=== PATIENT | male | born 1935 | race Caucasian/White ===

== ENCOUNTER → 2022-04-16 | Outpatient (CLI) | payer MEDICARE, SELFPAY ==
--- NOTE | 2022-04-16 11:00 | ECHOD_ITS ---
Reason For Study: CHF Procedure This was a 2D Doppler, Color Flow transthoracic echocardiogram. The exam was of good technical quality. Exam performed in department. Left Ventricle Normal LV size. Apical false tendon noted. Left ventricular systolic function is normal. The estimated ejection fraction is 60 %. Unable to assess diastolic dysfunction. No regional wall motion abnormalities noted. Right Ventricle Normal RV size. Normal systolic function. Atria The left atrium is severely enlarged. The right atrium is moderately enlarged. No doppler evidence for ASD. Mitral Valve There is no mitral annular calcification. Normal mitral valve. The mitral valve chordae are thickened and/or calcified. Mild-Moderate (1-2+) mitral valve insufficiency. Tricuspid Valve Normal tricuspid valve. Moderately severe (3+) eccentric tricuspid valve insufficiency. Right ventricular systolic pressure estimated to be 78 mmHg. Severe pulmonary hypertension. Aortic Valve Trisinus/trileaflet aortic valve. Mild focal aortic valve calcification. Trivial aortic valve insufficiency. Pulmonic Valve The pulmonic valve is not well visualized. Mild (1+) pulmonic valve insufficiency. Great Vessels Normal sized aortic root. Pericardium/Pleural No pericardial effusion. MMode/2D Measurements & Calculations LVIDd: 5.3 cm IVSd: 1.0 cm LVOT diam: 2.2 cm LVIDs: 3.4 cm LVPWd: 1.0 cm LVOT area: 3.7 cm2 RVDd: 4.4 cm FS: 36.1 % Ao root diam: 3.2 cm LAV(MOD-bp): 107.2 ml LVAd ap4: 28.6 cm2 LAV(MOD-bp) Indexed: 61.3 ml/m2 LVLd ap4: 8.1 cm LAV(MOD-sp2): 87.6 ml EDV(MOD-sp4): 84.3 ml LAV(MOD-sp4): 108.7 ml EDV(sp4-el): 85.6 ml LVAs ap4: 16.5 cm2 LVLs ap4: 6.9 cm ESV(MOD-sp4): 34.1 ml ESV(sp4-el): 33.4 ml EF(MOD-sp4): 59.5 % EF(sp4-el): 60.9 % SV(MOD-sp4): 50.2 ml SV(sp4-el): 52.2 ml LA A4 area: 31.6 cm2 LA dimension(2D): 6.1 cm RA A4 area: 22.2 cm2 Time Measurements MV dec time: 0.32 sec Doppler Measurements & Calculations MV E max clark: 171.6 cm/sec MV V2 max: 179.6 cm/sec MV P1/2t max clark: 185.2 cm/sec MV max P.9 mmHg MV P1/2t: 96.1 msec MV V2 mean: 64.7 cm/sec MV dec slope: 564.3 cm/sec2 MV mean P.6 mmHg MVA(P1/2t): 2.3 cm2 MV V2 VTI: 55.8 cm MVA(VTI): 2.5 cm2 Ao V2 max: 241.6 cm/sec LV V1 max: 151.1 cm/sec SV(LVOT): 139.8 ml Ao max P.4 mmHg LV V1 max P.2 mmHg Ao V2 mean: 151.8 cm/sec LV V1 mean P.8 mmHg Ao mean P.5 mmHg LV V1 mean: 102.8 cm/sec Ao V2 VTI: 57.8 cm LV V1 VTI: 37.6 cm RUFUS(I,D): 2.4 cm2 RUFUS(V,D): 2.3 cm2 PA V2 max: 116.3 cm/sec TR max clark: 416.9 cm/sec TR max P.5 mmHg ECHO/Echo Complete Interpretation Summary Left ventricular systolic function is normal. The estimated ejection fraction is 60 %. Apical false tendon noted. The left atrium is severely enlarged. The right atrium is moderately enlarged. The mitral valve chordae are thickened and/or calcified. Mild-Moderate (1-2+) mitral valve insufficiency. Moderately severe (3+) eccentric tricuspid valve insufficiency. Mild focal aortic valve calcification. Trivial aortic valve insufficiency. Mild (1+) pulmonic valve insufficiency. Right ventricular systolic pressure estimated to be 78 mmHg. Severe pulmonary hypertension. Unable to assess diastolic dysfunction. Ordering Physician: CARMEN BURGOS Referring Physician: Atiloi Jimenez Performed By: Staci Sanchez, RDCS, RVT
== END | disposition home or self-care (01) ==
LOC: CVS 10:59
PROVIDERS: PCP Family Medicine; Referring Provider Internal Medicine Cardiovascular Disease; Visit Provider Internal Medicine Cardiovascular Disease
DX: I50.20 Unspecified systolic (congestive) heart failure (principal); I42.0 Dilated cardiomyopathy; I48.0 Paroxysmal atrial fibrillation; I34.0 Nonrheumatic mitral (valve) insufficiency
CPT/HCPCS: 93306

== ENCOUNTER → 2022-11-11 | Outpatient (CLI) | payer MEDICARE, SELFPAY ==
--- NOTE | 2022-11-11 15:45 | RAD_ITS ---
INDICATION: I27.20 EXAMINATION/TECHNIQUE: X-RAY - XR Chest 2 Views COMPARISON: None. FINDINGS: LINES/DEVICES: None. LUNGS: Small right pleural effusion. Compressive atelectasis in the right lung base. MEDIASTINUM AND CARDIOVASCULAR STRUCTURES: Cardiac silhouette not enlarged. Central airways and mediastinal contour are unremarkable. BONES AND SOFT TISSUES: Unremarkable. RAD/Chest PA and Lateral IMPRESSION: Small right pleural effusion. Electronically Signed: Marshall Vega MD at 2:42 EST ,
== END | disposition home or self-care (01) ==
PROVIDERS: PCP Internal Medicine Cardiovascular Disease; Referring Provider Family Medicine; Visit Provider Family Medicine
DX: I27.20 Pulmonary hypertension, unspecified (principal)
CPT/HCPCS: 71046

== ENCOUNTER 2023-02-10 15:01 | Inpatient (IN) | payer MEDICARE, SELFPAY ==
[2023-02-10] VITALS (8 sets, daily range): BP systolic 130–151; BP diastolic 49–120; PULSE 73–91; RESP 16–20; TEMP 36.2–37.7; O2SAT 92–98; BMI 30.4; BMI 29.2
--- NOTE | 2023-02-10 15:22 | EKG12_ITS ---
Test Reason : EDEMA Blood Pressure : / mmHG Vent. Rate : 090 BPM Atrial Rate : 080 BPM P-R Int : 000 ms QRS Dur : 084 ms QT Int : 344 ms P-R-T Axes : 000 106 036 degrees QTc Int : 420 ms Atrial fibrillation Rightward axis Borderline ECG Confirmed by CHUCK STOVER, DION ([id number]), editorial assistant RANDAL VARGAS ([id number]) on 02/12/2023 9:54:13 AM Referred By: Confirmed By:DION WOODS MD
--- NOTE | 2023-02-10 15:25 | RAD_ITS ---
STUDY: X-RAY CHEST REASON FOR EXAM: Male, 87 years old. Chest pain . Lower extremity swelling. TECHNIQUE: Single AP portable view of the chest. COMPARISON: None. FINDINGS: Small right pleural effusion. Increased markings at the right lung base suggestive of atelectasis. Mild degree of CHF. There is mild cardiac enlargement. Normal mediastinum and jonah. Normal visualized pulmonary arteries. There is atherosclerotic calcification of the aortic arch with tortuosity. Normal visualized thoracic spine. There is degenerative osteoarthritis of the bilateral shoulders. There is no demonstrated abnormality of the visualized soft tissue structures of the upper abdomen. RAD/Chest 1 View (Portable) IMPRESSION: Mild degree of CHF with small right pleural effusion and right basilar atelectasis. Cardiomegaly. Electronically Signed: David Wolff MD at 15:44 EDT ,
--- NOTE | 2023-02-10 15:28 | EDS_ITS ---
HPI History of Present Illness Chief Complaint: Edema Narrative Narrative: dyspnea on exertion and lower extremity edema which is worse over the last 4 days. Patient is on Lasix 40 mg p.o. daily. Patient denies chest pain. He has dyspnea on exertion and has some difficulty walking due to leg swelling and shortness of breath. He had to start using a walker. No fevers, chills, cough. He is anticoagulated on Pradaxa. He denies any black or bloody stools. He is not having orthopnea. He is not having chest pain. [facility] Medical History (Updated 02/10/23 @ 20:[address] Bel Dennis MD) Anemia Asthma Atrial fibrillation BPH (benign prostatic hyperplasia) CKD (chronic kidney disease) GERD (gastroesophageal reflux disease) History of alcohol abuse Hyperlipidemia Hypertension Obesity Home Medications albuterol sulfate 90 mcg/actuation aerosol inhaler 1 puff inhalation PRN PRN Shortness Of Breath 02/10/23 [History Last Taken Unknown] budesonide-formoterol HFA 160 mcg-4.5 mcg/actuation aerosol inhaler (Symbicort) 1 puff inhalation BID 02/10/23 [History Last Taken Unknown] dabigatran etexilate 150 mg capsule (Pradaxa) 150 mg PO BID 02/10/23 [History Last Taken Unknown] doxazosin 4 mg tablet 4 mg PO QHS 02/10/23 [History Last Taken Unknown] finasteride 5 mg tablet 5 mg PO DAILY 02/10/23 [History Last Taken Unknown] hydralazine 10 mg tablet 20 mg PO TID 02/10/23 [History Last Taken Unknown] omeprazole 20 mg capsule,delayed release 20 mg PO DAILY 02/10/23 [History Last Taken Unknown] simvastatin 20 mg tablet 20 mg PO QHS 02/10/23 [History Last Taken Unknown] zolpidem 10 mg tablet 10 mg PO QHS PRN PRN Sleep 02/10/23 [History Last Taken Unknown] Allergy/AdvReac Type Severity Reaction Status Date / Time No Known Allergies Allergy Verified 02/10/23 15:02 Family History (Updated 02/10/23 @ 20:[address] Bel Dennis MD) Mother CVA (cerebral vascular accident) Hypertension Father CVA (cerebral vascular accident) Hypertension Sister COPD (chronic obstructive pulmonary disease) Lung cancer Diabetes Surgical History (Updated 02/10/23 @ 20:[address] Bel Dennis MD) History of inguinal hernia repair Social History (Updated 02/10/23 @ 20:[address] Bel Dennis MD) household members: spouse Smoking Status: Never smoker alcohol intake: current alcohol intake frequency: a few times a month details: Notes currently 1-2 beers q 2 weeks, prior heavy at least 2-3 or more daily substance use type: does not use ROS ROS ED Constitutional Constitutional ED: Denies chills, fever(s) or sweats Eyes Eyes: Denies blurry vision or change in vision ENT ENT ED: Denies ear pain or sore throat Cardiovascular Cardiovascular: Denies chest pain, palpitations or racing heartbeat Respiratory/Chest Respiratory/Chest: Reports dyspnea and dyspnea on exertion; Denies cough or sputum Gastrointestinal Gastrointestinal: Denies abdominal pain, constipation, diarrhea, nausea or vomiting Genitourinary Genitourinary ED: Denies dysuria, hematuria or urinary frequency Musculoskeletal Musculoskeletal: Denies arthralgias, myalgias or neck pain Integumentary Denies abscess, Abrasions or rash Neurologic Neurologic: Denies headache(s), paresthesias or weakness Psychiatric Psychiatric: Denies anxiety, depression, suicidal ideation or suicidal thoughts Endocrine Endocrinology: Denies polydipsia or polyuria EXAM Physical Exam Const Vital Signs: 02/10/23 15:04 02/10/23 15:33 02/10/23 15:42 Temperature 97.8 F Temperature Source Temporal Pulse Rate 91 Respiratory Rate 18 Respiratory Pattern Normal Blood Pressure 140/120 H Blood Pressure Mean 126 Pulse Ox 96 95 Oxygen Delivery Method Room Air Room Air 02/10/23 17:02 02/10/23 19:00 02/10/23 19:33 Temperature 97.2 F L Temperature Source Temporal Pulse Rate 73 78 86 Respiratory Rate 16 20 H 16 Respiratory Pattern Blood Pressure 130/83 H 142/58 H 151/71 H Blood Pressure Mean 98 86 97 Pulse Ox 94 92 95 Oxygen Delivery Method Room Air Room Air Positive well nourished and obese General Appearance ED: NAD Nutritional Appearance: obese HEENT Reports moist mucous membranes Eyes PERRL and EOMs intact bilaterally Neck no lymphadenopathy Chest Wall inspection of chest normal and palpation of chest normal Resp normal respiratory effort and clear to auscultation bilaterally Auscultation: Negative for rales, rhonchi or wheezes Cardio regular rate and regular rhythm Extremity normal to inspection General Extremety ED: Yes edema; Negative for tenderness General Extremity: edema Neuro oriented x3 and CN's II-XII intact bilaterally Sensorium / Orientation: alert Motor Exam: strength 5/5 throughout Psych mental status grossly normal Skin no rashes or lesions noted and no wounds MDM MDM MDM Narrative Medical decision making narrative: 87-year-old male with history of CHF presenting with breath and worsening lower extremity edema. He is not having any chest pain but the differential does include ACS, CHF, pneumonia, anemia, dehydration, electrolyte abnormalities. Considered DVT/PE however the patient is anticoagulated on Pradaxa. This is unlikely. CBC to assess white blood cell count, hemoglobin, platelets, differential. BMP to assess renal function, glucose, anion gap, electrolytes. LFT to assess liver function. EKG, high-sensitivity troponin, BMP to assess for heart strain chest x-ray was also obtained. Vital signs stable patient afebrile. CBC shows a white blood cell count of 8. Hemoglobin 7.9, hematocrit 25.7. Platelet count 117. Creatinine today is 2.45 with a BUN of 62. Electrolytes appear normal. Glucose 160 without anion gap. Total bilirubin 1.20, direct bilirubin 0.57, AST, ALT, alkaline phosphatase are all normal. High-sensitivity troponin is 277 BNP is 390. I do not have any comparison labs to establish a true baseline. Discussed with GI given the patient has a Hemoc cult positive stool and anemia 7.9. Dr. Petty is amenable to endoscopy after medically cleared. He recommended ultrasound of the right upper quadrant which is obtained and shows cirrhotic changes. And gallstones without evidence of cholecystitis discussed with Dr. Quintero of cardiology given his CHF and type II NSTEMI most likely. He recommended echocardiogram in the morning. Patient was discussed with the hospitalist for admission. Impression: 1. Acute blood loss anemia 2. GI bleed likely upper 3. CHF exacerbation 4. Type II NSTEMI 5. Syncope 6. Cirrhosis 7. Cholelithiasis Lab Data Attestation: I reviewed the patient's lab results. Labs: Laboratory Results - last 24 hr 02/10/23 02/10/23 02/10/23 15:40 15:40 15:40 WBC 8.1 RBC 2.96 L Hgb 7.9 L Hct 25.7 L MCV 86.8 MCH 26.7 L MCHC 30.7 L RDW Std Deviation 50.9 H RDW Coeff of Shiloh 15.9 H Plt Count 117 L MPV 12.3 H Immature Gran % (Auto) 3.200 H Neut % (Auto) 88.8 H Lymph % (Auto) 4.3 L Will[place] % (Auto) 3.6 Eos % (Auto) 0.0 Baso % (Auto) 0.1 Absolute Neuts (auto) 7.2 Absolute Lymphs (auto) 0.35 L Nucleated RBC % 0 Differential Comment SCANNED Sodium 140 Potassium 3.8 Chloride 107 Carbon Dioxide 22.0 Anion Gap 11 BUN 62 H Creatinine 2.45 H Estim Creat Clear Calc 19.17 Est GFR (MDRD) Af Amer 32 L Est GFR (MDRD) Non-Af 27 L BUN/Creatinine Ratio 25.3 H Glucose 160 H Calcium 8.7 Phosphorus Magnesium Total Bilirubin 1.20 H Direct Bilirubin 0.57 H AST 37 ALT 26 Alkaline Phosphatase 94 Troponin I High Sens 277 H* B-Natriuretic Peptide 390.3 H Total Protein 6.8 Albumin 2.7 L Globulin 4.1 02/10/23 15:40 WBC RBC Hgb Hct MCV MCH MCHC RDW Std Deviation RDW Coeff of Shiloh Plt Count MPV Immature Gran % (Auto) Neut % (Auto) Lymph % (Auto) Will[place] % (Auto) Eos % (Auto) Baso % (Auto) Absolute Neuts (auto) Absolute Lymphs (auto) Nucleated RBC % Differential Comment Sodium Potassium Chloride Carbon Dioxide Anion Gap BUN Creatinine Estim Creat Clear Calc Est GFR (MDRD) Af Amer Est GFR (MDRD) Non-Af BUN/Creatinine Ratio Glucose Calcium Phosphorus 3.6 Magnesium 2.1 Total Bilirubin Direct Bilirubin AST ALT Alkaline Phosphatase Troponin I High Sens B-Natriuretic Peptide Total Protein Albumin Globulin Radiography Diagnostic Testing: Clinical Impression(s) from Imaging Studies Chest X-Ray 02/10/23 15:25 IMPRESSION: Mild degree of CHF with small right pleural effusion and right basilar atelectasis. Cardiomegaly. Electronically Signed: David Wolff MD at 15:44 EDT , Gallbladder Ultrasound 02/10/23 17:45 IMPRESSION: Mild ascites. Question of cirrhosis. Cholelithiasis. Electronically Signed: Tawanda Woods MD at 18:39 EDT , Discharge Plan Disposition Disposition: Acute Care Hospital [facility] Discharge Date/Time: 02/10/23 20:55
[2023-02-10 16:00] LABS: Absolute Lymphocyte Count 0.35 X10^3/uL (0.83-4.51); Absolute Neutrophil Count 7.2 X10^3/uL (2.0-7.7); Basophil# 0.01 X10^3/uL; Basophil% 0.1 % (0-1); Hematocrit 25.7 % (40-54); Hemoglobin 7.9 g/dL (13.0-16.5); Lymphocyte # 0.35 X10^3/ul (0.83-4.51); Lymphocyte % 4.3 % (19-41); Mean Corp Hgb Conc 30.7 g/dL (32-36); Mean Corpuscular Hgb 26.7 pg (27.0-32.0); Mean Corpuscular Volume 86.8 fL (80-94); Mean Platelet Vol. 12.3 fl (6.2-12.0); Monocyte# 0.29 X10^3/uL; Monocyte% 3.6 % (0-10); NRBC Flagged by Analyzer 0 % (0-5); Neutrophil # 7.15 X10^3/uL (2.7-7.7); Neutrophil % 88.8 % (47-70); POSITIVE DIFFERENTIAL YES; Platelet Count 117 K/mm3 (150-450); RBC Distribution Width CV 15.9 % (11.6-14.6); RBC Distribution Width SD 50.9 fl (35.1-43.9); Red Blood Count 2.96 M/mm3 (4.6-6.2); White Blood Count 8.1 K/mm3 (4.4-11.0)
[2023-02-10 16:05] LABS: Differential Indicated SCAN CRITERIA MET
--- NOTE | 2023-02-10 16:13 | CON.PCM.GI_ITS ---
HPI Consult Data Date of Consult: 02/10/23 HPI Narrative Reason for Consultation: Anemia and GI bleed HPI Narrative: VAMSI CASTILLO, is a 87 M who presents from home for worsening shortness of breath. He also complained of dyspnea on exertion and lower extremity edema which is worse over the last 4 days.? Patient is on Lasix 40 mg p.o. daily.? Patient denies chest pain.? He has dyspnea on exertion and has some difficulty walking due to leg swelling and shortness of breath.? He had to start using a walker.? No fevers, chills, cough.? He is anticoagulated on Pradaxa.? He denies any black or bloody stools.? He is not having orthopnea.? He is not having chest pain. He has a past medical history of PAF, HTN, HLD, Asthma, BPH, GERD, Diastolic CHF, Former EtOH abuse (decreased after retired, prior notes at least 2-3 beers daily, possibly more). I was asked to see him due to worsening anemia. I noted that his platelet count was low at 119 so with his anemia and thrombocytopenia I requested that he get an ultrasound of the right upper quadrant. Ultrasound of right upper quadrant showed mild ascites and a shrunken nodular liver consistent with cirrhosis. In the ED was also determined to have acute on chronic renal failure and elevated troponins. He is currently being seen by nephrology and cardiology. [facility] Medical History (Updated 02/11/23 @ 13:40 by Destini HERRERA, PA) Anemia Asthma Atrial fibrillation BPH (benign prostatic hyperplasia) CKD (chronic kidney disease) GERD (gastroesophageal reflux disease) History of alcohol abuse Hyperlipidemia Hypertension Obesity Home Medications albuterol sulfate 90 mcg/actuation aerosol inhaler 1 puff inhalation PRN PRN Shortness Of Breath 02/10/23 [History Last Taken Unknown] budesonide-formoterol HFA 160 mcg-4.5 mcg/actuation aerosol inhaler (Symbicort) 1 puff inhalation BID 02/10/23 [History Last Taken Unknown] dabigatran etexilate 150 mg capsule (Pradaxa) 150 mg PO BID 02/10/23 [History Last Taken Unknown] doxazosin 4 mg tablet 4 mg PO QHS 02/10/23 [History Last Taken Unknown] finasteride 5 mg tablet 5 mg PO DAILY 02/10/23 [History Last Taken Unknown] hydralazine 10 mg tablet 20 mg PO TID 02/10/23 [History Last Taken Unknown] omeprazole 20 mg capsule,delayed release 20 mg PO DAILY 02/10/23 [History Last Taken Unknown] simvastatin 20 mg tablet 20 mg PO QHS 02/10/23 [History Last Taken Unknown] zolpidem 10 mg tablet 10 mg PO QHS PRN PRN Sleep 02/10/23 [History Last Taken Unknown] Allergy/AdvReac Type Severity Reaction Status Date / Time No Known Allergies Allergy Verified 02/10/23 15:02 Family History (Updated 02/10/23 @ 20:[address] Bel Dennis MD) Mother CVA (cerebral vascular accident) Hypertension Father CVA (cerebral vascular accident) Hypertension Sister COPD (chronic obstructive pulmonary disease) Lung cancer Diabetes Surgical History (Updated 02/10/23 @ 20:[address] Bel Dennis MD) History of inguinal hernia repair Social History (Updated 02/10/23 @ 20:[address] Bel Dennis MD) household members: spouse Smoking Status: Never smoker alcohol intake: current alcohol intake frequency: a few times a month details: Notes currently 1-2 beers q 2 weeks, prior heavy at least 2-3 or more daily substance use type: does not use ROS ROS Narrative see HPI Physical Exam Const alert, oriented x3 and no apparent distress HEENT normocephalic, head/scalp atraumatic, hearing grossly normal bilaterally, external ears normal, external nose normal and moist oral mucous membranes Eyes PERRL, EOMs intact bilaterally, conjunctivae normal and no scleral icterus Neck no lymphadenopathy and supple Neck Narrative: JVD Resp Auscultation: diminished lung sounds bilateral Cardio S1 normal heart sound, S2 normal heart sound, no murmurs, no rub, no gallops, no clicks and no JVD Jugular Venous Distention: JVD Rate: bradycardia Rhythm: regular rhythm GI Inspection: abdominal distention Extremity Extremity Narrative: +3 lower extremity edema, extends up to abdomen with dependent edema Neuro oriented x3, CN's II-XII intact bilaterally, moves all extremities and no focal motor deficits Psych cooperative and affect normal Lab / Micro Data Result Diagrams: 02/11/23 04:02 02/11/23 04:02 Labs: Laboratory Results - last 24 hr 02/10/23 15:40: Differential Comment SCANNED 02/10/23 15:40: Sodium 140, Potassium 3.8, Chloride 107, Carbon Dioxide 22.0, Anion Gap 11, BUN 62 H, Creatinine 2.45 H, Estim Creat Clear Calc 19.17, Est GFR (MDRD) Af Amer 32 L, Est GFR (MDRD) Non-Af 27 L, BUN/Creatinine Ratio 25.3 H, Glucose 160 H, Calcium 8.7, Total Bilirubin 1.20 H, Direct Bilirubin 0.57 H, AST 37, ALT 26, Alkaline Phosphatase 94, Troponin I High Sens 277 H*, Total Protein 6.8, Albumin 2.7 L, Globulin 4.1 02/10/23 15:40: B-Natriuretic Peptide 390.3 H 02/10/23 15:40: Phosphorus 3.6, Magnesium 2.1 02/10/23 22:02: Urine Color Yellow, Urine Clarity Clear, Urine pH 7.0, Ur Specific Graham 1.005, Urine Protein 30 H, Urine Glucose (UA) Normal, Urine Ketones Negative, Urine Occult Blood 250 H, Urine Nitrite Negative, Urine Bilirubin Negative, Urine Urobilinogen Normal, Ur Leukocyte Esterase 500 H, Urine RBC 0-5 SEEN, Urine WBC 10-25 SEEN, Ur Squamous Epith Cells 0 SEEN, Urine Bacteria 3+, Urine Mucus 0 SEEN 02/10/23 22:02: Ur Random Sodium 89, Urine Creatinine 15.80 02/10/23 22:05: Hgb 7.8 L, Hct 24.8 L 02/10/23 22:05: Troponin I High Sens 311 H* 02/10/23 23:35: Hgb 7.3 L, Hct 23.2 L 02/10/23 23:35: Troponin I High Sens 307 H* 02/11/23 04:02: WBC 5.9, RBC 2.61 L, Hgb 7.1 L, Hct 22.3 L, MCV 85.4, MCH 27.2, MCHC 31.8 L, RDW Std Deviation 49.6 H, RDW Coeff of Shiloh 15.9 H, Plt Count 110 L, MPV 12.1 H, Neut % (Auto) Not Reportable, Absolute Neuts (auto) 5.2, Absolute Lymphs (auto) 0.36 L, Total Counted 100, Neutrophils % (Manual) 78 H, Band Neutrophils % 9 H, Lymphocytes % (Manual) 6 L, Monocytes % (Manual) 4, My elocytes % 3 H, Diff Path Review May foll, Platelet Estimate SLT DEC, Anisocytosis 1+ 02/11/23 04:02: Sodium 142, Potassium 3.5, Chloride 111 H, Carbon Dioxide 22.0, Anion Gap 9, BUN 61 H, Creatinine 2.20 H, Estim Creat Clear Calc 21.35, Est GFR (MDRD) Af Amer 37 L, Est GFR (MDRD) Non-Af 30 L, BUN/Creatinine Ratio 27.7 H, Glucose 105, Calcium 8.3 L, Total Bilirubin 1.20 H, AST 28, ALT 21, Alkaline Phosphatase 77, Total Protein 5.7 L, Albumin 2.2 L, Globulin 3.5, Albumin/Globulin Ratio 0.6 L, Triglycerides 53, Cholesterol 53, LDL Cholesterol 18, VLDL Cholesterol 11, HDL Cholesterol 24 L, TSH 0.69 02/11/23 04:02: Hemoglobin A1c < 3.8 L 02/11/23 04:02: Troponin I High Sens 304 H* 02/11/23 14:25: PT 22.2 H, INR 1.9 Micro: Microbiology 02/10/23 16:43 Stool Stool Occult Blood (CLEVE) - Final Occult Blood Positive Radiology Impression Gallbladder Ultrasound 02/10/23 17:45 IMPRESSION: Mild ascites. Question of cirrhosis. Cholelithiasis. Electronically Signed: Tawanda Woods MD at 18:39 EDT , Echocardiogram 02/10/23 21:03 Interpretation Summary The estimated ejection fraction is 55-60 %. Severe biatrial enlargement. Moderately severe +3 eccentric tricuspid valve insufficiency. Mild to moderate MR Severe pulm hypertension RV systolic pressure measuring 106 mmHg worsening from previous echocardiogram in April 16/2022 RV systolic pressure was 78 mmHg Ordering Physician: Bel Dennis Performed By: AB Venous Doppler Study 02/11/23 11:04 Interpretation Summary Deep veins of the bilateral lower extremities are patent and compressible segmentally. There is no evidence of bilateral lower extremity deep vein thrombosis. The bilateral great saphenous veins appear patent and compressible segmentally. Ordering Physician: Ryan Cowart Referring Physician: Atilio Jimenez Performed By: Alicia Aranda, YESSY, RVT Assessment & Plan Assessment/Plan (1) CHF exacerbation: (2) GI bleed: (3) NSTEMI, initial episode of care: PLAN: Plan The patient is an 87 y/o M w/ PMHx: PAF, HTN, HLD, COPD, BPH, GERD, Diastolic CHF who presents to the [facility] ED on 02/10/23 with history of increasing dyspnea, worse with exertion with lower extremity increased edema discovered to have anemia, thrombocytopenia and imaging consistent with cirrhosis. Cirrhosis- Differential diagnosis would be alcoholic cirrhosis versus Jaramillo cirrhosis. We will perform biochemical work-up and we also will screen him for varices to see if that is the etiology why he has a GI blood loss anemia. If her upper scope is negative then he would likely need a colonoscopy for further evaluation and possible capsule endoscopy. He is already on medical therapy for CHF which also incorporates prophylaxis for varices. Recommend ceftriaxone 1 g IV daily, Protonix drip and octreotide drip. Anemia - Admission hemoglobin 7.9, MCV 86.8 with no clear prior baseline even in clinic sink system. To be cautious we will temporally hold Pradaxa home regimen, obtain serial H+H, obtain T+S w/ cross for PRBC administration if appropriate, maintain on IV PPI, will request gastroenterology involvement, clears until midnight with n.p.o. status following. Deferring any IV fluids given #1. Given patient gallbladder ultrasound with noted mild ascites with questionable cirrhotic disease we will place also on IV Rocephin to be cautious. Thrombocytopenia, unclear if acute or chronic: Admission platelet 117, given anemia as well temporally holding anticoagulation pending further work-up as noted, will trend CBC Charges/Coding Visit Charges Inpatient E&M: 78818 Init Hosp L3
[2023-02-10 16:28] LABS: BNP,B-Type NATRIURETIC PEPTIDE 390.3 pg/mL (0-100)
[2023-02-10 16:31] LABS: AST(SGOT) 37 U/L (15-37); Alanine Aminotransfer ALT/SGPT 26 U/L (16-61); Albumin, Serum 2.7 g/dL (3.2-5.0); Alkaline Phosphatase 94 U/L (45-117); Anion Gap 11 (5-15); BUN 62 mg/dL (7-18); BUN/Creat Ratio 25.3 RATIO (10-20); Bilirubin, Direct 0.57 mg/dL (0.00-0.30); Calcium,Total 8.7 mg/dL (8.5-10.1); Chloride 107 mmol/L (98-107); Creatinine, Serum 2.45 mg/dL (0.70-1.30); EST Glomerular Filtration Rate 27 mL/min (>60); Est Glom Filt Rate - Afr Amer 32 mL/min (>60); Estimated Creatinine Clearance 19.17 ml/min; Globulin 4.1 g/dL (2.2-4.2); Glucose 160 mg/dL (74-106); Potassium 3.8 mmol/L (3.5-5.1); Protein, Total 6.8 g/dL (6.4-8.2); Sodium Level 140 mmol/L (136-145); Troponin-I HS 277 pg/mL (3.0-78.0)
[2023-02-10 16:35] LABS: Differential Comment SCANNED
--- NOTE | 2023-02-10 17:45 | US_ITS ---
STUDY: ABDOMINAL ULTRASOUND - RIGHT UPPER QUADRANT REASON FOR VISIT: Male, 87 years old ruq pain TECHNIQUE: Ultrasound evaluation of the right upper quadrant was performed with real-time and static alegria-scale imaging. TECHNICAL QUALITY: Limited. Examination limited due to the patient?s condition. COMPARISON: None. FINDINGS: Liver: The liver measures 16.6 cm. There is a nodular surface pattern suspicious for cirrhosis. There is normal echogenicity of the liver. The bile ducts are within normal limits. There is hepatic color flow. Several liver calcifications are seen. These are most consistent with granulomas. No liver mass. Gallbladder: Normal distended gallbladder. The gallbladder wall measures 2 mm. There is a negative sonographic Ramirez''s sign. There is pericholecystic fluid. There are multiple echogenic structures within the gallbladder, consistent with multiple gallstones. Common Bile Duct (C.B.D.): The common bile duct measures 4 mm. Pancreas: Normal size of the head, body of the pancreas. Tail of the pancreas is suboptimally seen. There is normal echogenicity of the pancreas. There is no demonstrated pancreatic mass or cyst. Right Kidney: Normal size of the right kidney. The right kidney measures 10.4 cm. Normal renal cortex. The right cortex measures 1.4 cm. There is no demonstrated renal mass or cyst. There is no right hydronephrosis. Mild ascites is seen. US/Gallbladder IMPRESSION: Mild ascites. Question of cirrhosis. Cholelithiasis. Electronically Signed: Tawanda Woods MD at 18:39 EDT ,
--- NOTE | 2023-02-10 19:05 | HP.PCM.HOS_ITS ---
HPI - General General Date of Admission: 02/10/23 Date of Service: 02/10/23 Chief Complaint: Dyspnea, worse with exertion, LE edema increased. HPI Narrative The patient is an 87 y/o M w/ PMHx: PAF, HTN, HLD, Asthma, BPH, GERD, Diastolic CHF, Former EtOH abuse (decreased after retired, prior notes at least 2-3 beers daily, possibly more) who presents to the [facility] ED on 02/10/23 with history of increasing dyspnea, worse with exertion with lower extremity increased edema worsening over the last 4 days requiring him to even start using a walker or even just ambulate with no associated chest discomfort but not improving prompting eventual ED evaluation. Patient denies any recent fever, chills or cough. Patient of note denies any bloody or black stools. He does report that he commonly has increased swelling to both lower extremities and normally more issues with the left than the right however he notes that his left recently improved but he still has ongoing worsened right lower extremity swelling but denies any marked pain. Right lower extremity is mildly warm to touch but he denies any recent wounds to that extremity. Work-up in the ED included T97.8, heart rate 91, BP initially 140/120 with most recent repeat 142/28, respiratory ranging 8 to most recently 20, oxygenation initially 96% on room air with most recent 92% on room air, CBC with WC 8.1, hemoglobin 7.9, MCV 86.8, platelet 117 with increased immature granulocytes and lymphopenia, CMP with BUN/creatinine 62/2.45, glucose 160, T. bili 1.20, D bili 0.57 otherwise not marked appearing, troponin 277, BNP 390.3, chest x-ray with mild degree of CHF with a small right pleural effusion and right basilar atelectasis as well as cardiomegaly, gallbladder ultrasound with mild ascites, questionable cirrhotic change, cholelithiasis evident, positive stool guaiac, EKG SR rate 61 without acute evidence of ischemia. In the ED patient administered Lasix 40 mg IV x1, Protonix 40 mg IV x1. ED discussed case with GI and requested PPI IV BID and planned endoscopy. ED also consulted Dr. Santos, Cardiology. [facility] Medical History (Updated 02/10/23 @ 20:[address] Bel Dennis MD) Anemia Asthma Atrial fibrillation BPH (benign prostatic hyperplasia) CKD (chronic kidney disease) GERD (gastroesophageal reflux disease) History of alcohol abuse Hyperlipidemia Hypertension Obesity Home Medications albuterol sulfate 90 mcg/actuation aerosol inhaler 1 puff inhalation PRN PRN Shortness Of Breath 02/10/23 [History Last Taken Unknown] budesonide-formoterol HFA 160 mcg-4.5 mcg/actuation aerosol inhaler (Symbicort) 1 puff inhalation BID 02/10/23 [History Last Taken Unknown] dabigatran etexilate 150 mg capsule (Pradaxa) 150 mg PO BID 02/10/23 [History Last Taken Unknown] doxazosin 4 mg tablet 4 mg PO QHS 02/10/23 [History Last Taken Unknown] finasteride 5 mg tablet 5 mg PO DAILY 02/10/23 [History Last Taken Unknown] hydralazine 10 mg tablet 20 mg PO TID 02/10/23 [History Last Taken Unknown] omeprazole 20 mg capsule,delayed release 20 mg PO DAILY 02/10/23 [History Last Taken Unknown] simvastatin 20 mg tablet 20 mg PO QHS 02/10/23 [History Last Taken Unknown] zolpidem 10 mg tablet 10 mg PO QHS PRN PRN Sleep 02/10/23 [History Last Taken Unknown] Allergy/AdvReac Type Severity Reaction Status Date / Time No Known Allergies Allergy Verified 02/10/23 15:02 Family History (Updated 02/10/23 @ 20:[address] Bel Dennis MD) Mother CVA (cerebral vascular accident) Hypertension Father CVA (cerebral vascular accident) Hypertension Sister COPD (chronic obstructive pulmonary disease) Lung cancer Diabetes Surgical History (Updated 02/10/23 @ 20:[address] Bel Dennis MD) History of inguinal hernia repair Social History (Updated 02/10/23 @ 20:[address] Bel Dennis MD) household members: spouse Smoking Status: Never smoker alcohol intake: current alcohol intake frequency: a few times a month details: Notes currently 1-2 beers q 2 weeks, prior heavy at least 2-3 or more daily substance use type: does not use ROS ROS Narrative Admission Review of Systems: CONSTITUTIONAL: No weight loss, fever, chills, + weakness or fatigue. HEENT: Eyes: No visual loss, blurred vision, double vision or yellow sclerae. Ears, Nose, Throat: No hearing loss, sneezing, congestion, runny nose or sore throat. SKIN: No rash or itching, lesions, wounds. CARDIOVASCULAR: + Edema, no chest pain, chest pressure or chest discomfort, palpitations, orthopnea, syncopal events. RESPIRATORY: + shortness of breath, occasional cough without marked productive sputum. No wheezing, hemoptysis. GASTROINTESTINAL: No anorexia, nausea, vomiting or diarrhea, abdominal pain, melena, BRBPR. GENITOURINARY: No dysuria, frequency, urgency or retention. NEUROLOGICAL: No headache, dizziness, syncope, paralysis, ataxia, numbness or tingling in the extremities, focal weakness, change in bowel or bladder control, seizure. MUSCULOSKELETAL: + muscle, back pain, joint pain or stiffness. HEMATOLOGIC: + anemia, bleeding or bruising. LYMPHATICS: No enlarged nodes. No history of splenectomy. PSYCHIATRIC: + history of depression or anxiety. ENDOCRINOLOGIC: No reports of sweating, cold or heat intolerance. No polyuria or polydipsia. ALLERGIES: + history of asthma. Vital Signs Vital Signs Vital Signs: 02/10/23 15:04 02/10/23 15:33 02/10/23 15:42 Temperature 97.8 F Temperature Source Temporal Pulse Rate 91 Respiratory Rate 18 Respiratory Pattern Normal Blood Pressure 140/120 H Blood Pressure Mean 126 Pulse Ox 96 95 Oxygen Delivery Method Room Air Room Air 02/10/23 17:02 02/10/23 19:00 Temperature Temperature Source Pulse Rate 73 78 Respiratory Rate 16 20 H Respiratory Pattern Blood Pressure 130/83 H 142/58 H Blood Pressure Mean 98 86 Pulse Ox 94 92 Oxygen Delivery Method Room Air Weight Weight: 188 lb 11.451 oz Body Mass Index (BMI) 30.4 Physical Exam Narrative Physical Examination: General: Awake, alert, oriented x 3 and cooperative, hard of hearing, seated upright in the ED bed, fatigued otherwise no acute distress. Skin: Normal color, normal turgor, no icterus, no cyanosis except for occasional staged ecchymoses, bilateral lower extremity venous stasis skin changes, right greater than left, no specific marked severe erythema or streaking on the right leg but right lower extremity is more warm to touch and more edematous. HEENT: AT/NC, EOMI, PERRLA, MMM, no carotid bruits, + JVD noted. Lungs: Diminished, greater bases, appropriate effort currently, mild rales at the bases, no ronchi or wheezing. Heart: Currently regular rate and rhythm; no gallop, rub audible, + SM. Abdomen: Soft, obese, NTTP, ND, mildly hyperactive BS,+ HM. Extremities: No cyanosis, no clubbing, see skin, right greater than left peripheral pitting edema. Neurological: Patient awake, alert, oriented as noted, hard of hearing, cognitive function intact but is complicated by hearing deficits; pupils equally reactive to light and accommodation, cranial nerves otherwise grossly normal, moving all 4 extremities, no focal deficits, strength moderately to severely global decrease secondary to acute complaints Psychiatric: Affect appears fatigued, no acute evidence of depressive or anxiety feelings. Results Lab / Micro Data Result Diagrams: 02/10/23 15:40 02/10/23 15:40 Labs: Laboratory Results - last 24 hr 02/10/23 15:40: WBC 8.1, RBC 2.96 L, Hgb 7.9 L, Hct 25.7 L, MCV 86.8, MCH 26.7 L , MCHC 30.7 L, RDW Std Deviation 50.9 H, RDW Coeff of [place]il[place] 15.9 H, Plt Count 117 L, MPV 12.3 H, Immature Gran % (Auto) 3.200 H, Neut % (Auto) 88.8 H, Lymph % (Auto) 4.3 L, Granite % (Auto) 3.6, Eos % (Auto) 0.0, Baso % (Auto) 0.1, Absolute Neuts (auto) 7.2, Absolute Lymphs (auto) 0.35 L, Nucleated RBC % 0, Differential Comment SCANNED 02/10/23 15:40: Sodium 140, Potassium 3.8, Chloride 107, Carbon Dioxide 22.0, Anion Gap 11, BUN 62 H, Creatinine 2.45 H, Estim Creat Clear Calc 19.17, Est GFR (MDRD) Af Amer 32 L, Est GFR (MDRD) Non-Af 27 L, BUN/Creatinine Ratio 25.3 H, Glucose 160 H, Calcium 8.7, Total Bilirubin 1.20 H, Direct Bilirubin 0.57 H, AST 37, ALT 26, Alkaline Phosphatase 94, Troponin I High Sens 277 H*, Total Protein 6.8, Albumin 2.7 L, Globulin 4.1 02/10/23 15:40: B-Natriuretic Peptide 390.3 H Micro: Microbiology 02/10/23 16:43 Stool Stool Occult Blood (CLEVE) - Final Occult Blood Positive Radiology Impression Chest X-Ray 02/10/23 15:25 IMPRESSION: Mild degree of CHF with small right pleural effusion and right basilar atelectasis. Cardiomegaly. Electronically Signed: David Wolff MD at 15:44 EDT , Gallbladder Ultrasound 02/10/23 17:45 IMPRESSION: Mild ascites. Question of cirrhosis. Cholelithiasis. Electronically Signed: Tawanda Woods MD at 18:39 EDT , Assessment & Plan Assessment/Plan (1) CHF exacerbation: (2) GI bleed: (3) NSTEMI, initial episode of care: PLAN: Plan The patient is an 87 y/o M w/ PMHx: PAF, HTN, HLD, COPD, BPH, GERD, Diastolic CHF who presents to the [facility] ED on 02/10/23 with history of increasing dyspnea, worse with exertion with lower extremity increased edema worsening over the last 4 days requiring him to even start using a walker or even just ambulate with no associated chest discomfort but not improving prompting eventual ED evaluation. Patient denies any recent fever, chills or cough. Patient of note denies any bloody or black stools. #1. Acute Decompensated Presumed Diastolic CHF with elevated cardiac enzymes as noted #3: Patient administered IV lasix in the ED, will admit to PCU, maintain on cardiac telemetry, obtain cardiac enzyme series, obtain serial EKGs, continue IV lasix diuresis, monitor I/Os, obtain TSH and magnesium level. Most recent ECHO noted 04/16/2022 with normal LV systolic function, EF 60%, LA severely enlarged, RA moderately enlarged, mild to moderate MVI, moderately severe TVI, trivial NILSON, mild PVI, RVSP 78 mmHg with evidence severe pulmonary hypertension, inability at that time to assess diastolic dysfunction thus will repeat. Given GI bleed presentation defer ASA/anticoagulation, also not on BB with HR 60 upon presentation and underlying pulmonary disease and not on ACEI/ARB with possibly RODRÍGUEZ. Continue statin. #2. Anemia, Suspected Acute given + Stool Guiac/GI bleed; however, unclear acute on chronic component, complicated by chronic anticoagulant therapy and Possibly underlying Cirrhotic disease w/ Prior EtOH Abuse history: Admission hemoglobin 7.9, MCV 86.8 with no clear prior baseline even in clinic sink system. To be cautious we will temporally hold Pradaxa home regimen, obtain serial H+H, obtain T+S w/ cross for PRBC administration if appropriate, maintain on IV PPI, will request gastroenterology involvement, clears until midnight with n.p.o. status following. Deferring any IV fluids given #1. Given patient gallbladder ultrasound with noted mild ascites with questionable cirrhotic disease we will place also on IV Rocephin to be cautious. #3. Acute NSTEMI, suspected type II demand given #1, #2: EKG in ED w/ SR without acute evidence of ischemia, chest x-ray with mild degree of CHF with a small right pleural effusion and right basilar atelectasis as well as cardiomegaly, Trop elevated 277. Will maintain on a monitored bed, continue serial cardiac enzymes and EKGs. Obtain magnesium level upon admission. Patient is chronically anticoagulated with Pradaxa however given concern for anemia possibly being acute with possible GI bleed holding this agent and will defer initiation of heparin drip. Echocardiogram requested. Continue statin therapy with FLP in AM. Patient of note is not on beta-jodie nor CHANTEL inhibitor/ARB but given renal function will defer this at this time regardless and unclear pulmonary history extent. Cardiology consulted. #4. Suspected RODRÍGUEZ although unclear if underlying CKD unclear stage or subtype: Admission BUN/creatinine 62/2.45, some concern for possible GI bleed component as well as volume overload, deferring any IV fluids, IV diuresis as noted, pending evaluation of GI bleed, will continue patient hypertensive regimen with adjustments as noted but closely monitor BP to avoid hypoperfusion, will obtain renal ultrasound, urinalysis, FeNa and pending reevaluation in a.m. consider nephrology involvement if appropriate. #5. Hyperglycemia: Admission glucose 160, no prior diabetic history reported, will obtain hemoglobin A1c and if appropriate obtain nutrition consultation for education and teaching, ADA diet once clinically appropriate and Accu-Cheks with insulin sliding scale. #6. Thrombocytopenia, unclear if acute or chronic: Admission platelet 117, given anemia as well temporally holding anticoagulation pending further work-up as noted, will trend CBC #7. Chronic Asthma: Will maintain on oxygen with wean as tolerated to room air, will temporally hold home inhaler in the interim transition to ATC budesonide therapy, PRN albuterol, HOB, IS parameters. #8. PAF: Not on rate or rhythm agent per review of current list but clarifying, on chronic Pradaxa regimen, temporarily holding given anemia noted and unclear baseline. #9. Hypertension: Continue home regimen including hydralazine, IV Lasix as noted, not on beta-jodie or CHANTEL inhibitor however clarifying list, PRN hydr alazine. #10. Hyperlipidemia: Continue home statin regimen. AM FLP. #11. BPH: We will continue patient home finasteride and doxazosin home regimen. #12. GERD: We will maintain on IV PPI pending further work-up given anemia and unclear baseline hemoglobin level. #13. DVT prophylaxis: SCDs, holding Pradaxa given #2 is noted. #14. CODE status: Patient HCPOA and living will is not in place however he notes his would be his decision maker if this was necessary. Discussed CODE status at length including difference between FULL code, DNR-CCA and DNR-CC status. Following discussions about the differences in these status, requested Full Code status. Advanced Care Planning Face to Face Time: 16 minutes. Admission Evaluation Time spent evaluating chart, patient history, patient evaluation, care planning and discussion with specialists: 75 minutes. Charges/Coding Visit Charges Inpatient E&M: 71988 Init Hosp L3 Procedures Hospitalists Procedures: 63717 Advncd Care Plan 30 Min
[2023-02-10 20:15] LABS: Magnesium 2.1 mg/dL (1.6-2.6); Phosphorus 3.6 mg/dL (2.5-4.9)
[2023-02-10] MEDS: Furosemide 40 MG/4 ML Vial IV (20:18)
--- NOTE | 2023-02-10 21:03 | ECHOD_ITS ---
Procedure This was a 2D Doppler, Color Flow transthoracic echocardiogram. Patient scanned supine. Exam performed portable in patient room. Left Ventricle Normal left ventricle. The estimated ejection fraction is 55-60 %. Right Ventricle Moderately dilated right ventricle. Mildly decreased right ventricular systolic function. Atria The left atrium is severely enlarged. The right atrium is severely enlarged. Mitral Valve The mitral valve chordae are thickened and/or calcified. Mild-Moderate (1-2+) eccentric mitral valve insufficiency. Tricuspid Valve Normal tricuspid valve. Moderately severe (3+) tricuspid valve insufficiency. Aortic Valve Normal aortic valve. Trivial aortic valve insufficiency. Pulmonic Valve The pulmonic valve is not well visualized. Pericardium/Pleural No pericardial effusion. MMode/2D Measurements & Calculations LVIDd: 4.7 cm IVSd: 1.3 cm LVOT diam: 2.0 cm LVIDs: 3.5 cm LVPWd: 1.1 cm LVOT area: 3.0 cm2 FS: 26.0 % LAV(MOD-bp): 119.2 ml LA A4 area: 32.1 cm2 LA dimension(2D): 4.8 cm LAV(MOD-bp) Indexed: 62.2 ml/m2 LAV(MOD-sp2): 98.7 ml LAV(MOD-sp4): 117.5 ml RA A4 area: 26.0 cm2 Time Measurements MV dec time: 0.41 sec Doppler Measurements & Calculations MV E max dudley: 159.0 cm/sec Lat Peak E' Dudley: 9.9 cm/sec Med Peak E' Dudley: 6.6 cm/sec MV A max dudley: 28.0 cm/sec E/E' lat: 16.0 E/E' med: 24.2 MV E/A: 5.7 MV V2 max: 175.5 cm/sec MV dec slope: 390.2 cm/sec2 Ao V2 max: 234.1 cm/sec MV max P.3 mmHg Ao max P.0 mmHg MV V2 mean: 56.0 cm/sec RUFUS(V,D): 2.0 cm2 MV mean P.0 mmHg MV V2 VTI: 53.5 cm LV V1 max: 156.9 cm/sec PA V2 max: 132.1 cm/sec TR max dudley: 516.2 cm/sec LV V1 max P.9 mmHg PA V2 mean: 92.2 cm/sec TR max P.6 mmHg ECHO/Echo Complete Interpretation Summary The estimated ejection fraction is 55-60 %. Severe biatrial enlargement. Moderately severe +3 eccentric tricuspid valve insufficiency. Mild to moderate MR Severe pulm hypertension RV systolic pressure measuring 106 mmHg worsening from previous echocardiogram in April 16/2022 RV systolic pressure was 78 mmHg Ordering Physician: Bel Dennis Performed By:
--- NOTE | 2023-02-10 21:20 | EKG12_ITS ---
Test Reason : AM EKG Blood Pressure : / mmHG Vent. Rate : 073 BPM Atrial Rate : 058 BPM P-R Int : 000 ms QRS Dur : 092 ms QT Int : 394 ms P-R-T Axes : 000 097 133 degrees QTc Int : 434 ms Atrial fibrillation Rightward axis Low voltage QRS Borderline ECG When compared with ECG of 10-FEB-2023 21:37, MANUAL COMPARISON REQUIRED, DATA IS UNCONFIRMED Confirmed by CHUCK STOVER, DION ([id number]), managing editor RANDAL VARGAS ([id number]) on 02/12/2023 9:57:38 AM Referred By: Confirmed By:DION WOODS MD
[2023-02-10 22:43] LABS: Hematocrit 24.8 % (40-54); Hemoglobin 7.8 g/dL (13.0-16.5)
[2023-02-10 23:11] LABS: Troponin-I HS 311 pg/mL (3.0-78.0)
[2023-02-10] MEDS: 0.9% Saline Lock 10 ML Syringe IV (23:15)
[2023-02-10] MEDS: Ceftriaxone 1 GM/50 ML BAG IV (23:17)
[2023-02-10] MEDS: hydrALAZINE 10 MG Tablet 20 MG PO (23:19)
[2023-02-10] MEDS: Atorvastatin Calcium 10 MG Tablet PO (23:20)
[2023-02-10] MEDS: Doxazosin 4 MG Tablet PO (23:20)
[2023-02-10 23:25] LABS: Mucous, Urine 0 SEEN /hpf (<or=2+); Squamous Epithelial Cells - UA 0 SEEN /hpf (0-5)
[2023-02-10 23:27] LABS: Color, Urine Yellow (Yellow); Glucose, Dipstick Normal (Normal); Ketone-Dipstick Negative (Negative); Leukocyte Esterase-Dipstick 500 /ul (Negative); Nitrite-Dipstick Negative (Negative); Occult Blood-Urine 250 /ul (Negative); Protein-Dipstick 30 mg/dl (Negative); Specific Gravity, Urine 1.005 (1.002-1.030); Urine Bilirubin Dipstick Negative (Negative); Urine Clarity Clear (Clear); Urine Urobilinogen Normal (Normal)
[2023-02-10 23:37] LABS: Bacteria 3+ /hpf (None Seen); Red Blood Cells-Urine 0-5 SEEN /hpf (0-5); White Blood Cells 10-25 SEEN /hpf (0-5)
[2023-02-10 23:42] LABS: Urine Sodium 89 mmol/L (Not Establ.)
[2023-02-10 23:44] LABS: Hematocrit 23.2 % (40-54); Hemoglobin 7.3 g/dL (13.0-16.5)
[2023-02-11] VITALS (17 sets, daily range): BP systolic 114–128; BP diastolic 41–79; PULSE 50–95; RESP 16–18; TEMP 35.9–37.5; O2SAT 92–99; BMI 29.2
--- NOTE | 2023-02-11 | GASB_PTH ---
PATIENT: VAMSI CASTILLO LOC: [facility] U#:[id number] AGE/SX: 87/M ROOM: [facility] RE02/10/[address]: Dr. Ivelisse Cantu DO : 1935 BED: 1 DIS: 02/17/2023 SPEC #: [id number] RECD: 02/12/23 11:49 STATUS: RUSS REMoreno #: [id number] AMOL: 02/11/23 00:[address]: Vaibhav Petty DEPT: SURGICAL PATHOLOGY RECD BY: Dejuan Sorto ENTERED: 02/12/23 11:49 SP TYPE: Gastric Bx OTHR DR: MD Dr. Atilio Abad DO Dr. Farouk Belal, MD Dr. Olga Voroshilova, MD Dr. Prakash Chand, MD Tissues: Gastric mucous membrane Procedures: Surgery Specimen Level IV Comments: @ Ordering doctor for SUIV edited from to @ by EMILY at 02/12/23 1526 @ Submitting doctor edited from to @ by RGOOD at 02/12/23 1526 HEADER OPERATION: EGD (MAC) with biopsies PRE-OP DIAGNOSIS: Anemia TISSUE SUBMITTED: Gastric body biopsies MICROSCOPIC DIAGNOSIS Gastric body, biopsy: Changes of fundic gland polyp. Chronic gastritis. See comment. AM:peter 02/13/2023 COMMENT The results of immunohistochemistry for Helicobacter pylori will be reported separately ([id number]). MICROSCOPIC DESCRIPTION Slides are reviewed. GROSS DESCRIPTION Received in fixative is one container labeled with the patient's name and designated gastric body biopsy. The specimen consists of multiple irregular fragments of light cordoba soft tissue that in aggregate measure 1.0 x 0.4 x 0.1 cm. The specimen is totally submitted in one cassette. / SJ:peter 02/12/2023 TC:3 CPT: 38887
[2023-02-11 00:06] LABS: Troponin-I HS 307 pg/mL (3.0-78.0)
[2023-02-11 04:10] LABS: Hematocrit 22.3 % (40-54); Hemoglobin 7.1 g/dL (13.0-16.5); Mean Corp Hgb Conc 31.8 g/dL (32-36); Mean Corpuscular Hgb 27.2 pg (27.0-32.0); Mean Corpuscular Volume 85.4 fL (80-94); Mean Platelet Vol. 12.1 fl (6.2-12.0); POSITIVE COUNT YES; POSITIVE DIFFERENTIAL YES; POSITIVE MORPHOLOGY YES; Platelet Count 110 K/mm3 (150-450); RBC Distribution Width CV 15.9 % (11.6-14.6); RBC Distribution Width SD 49.6 fl (35.1-43.9); Red Blood Count 2.61 M/mm3 (4.6-6.2); White Blood Count 5.9 K/mm3 (4.4-11.0)
[2023-02-11 04:11] LABS: Differential Indicated MANUAL DIFF
[2023-02-11 04:39] LABS: Troponin-I HS 304 pg/mL (3.0-78.0)
[2023-02-11 04:46] LABS: ALB/GLOB Ratio 0.6 RATIO (0.9-2.4); AST(SGOT) 28 U/L (15-37); Alanine Aminotransfer ALT/SGPT 21 U/L (16-61); Albumin, Serum 2.2 g/dL (3.2-5.0); Alkaline Phosphatase 77 U/L (45-117); Anion Gap 9 (5-15); BUN 61 mg/dL (7-18); BUN/Creat Ratio 27.7 RATIO (10-20); Calcium,Total 8.3 mg/dL (8.5-10.1); Chloride 111 mmol/L (98-107); Cholesterol 53 mg/dL (200); EST Glomerular Filtration Rate 30 mL/min (>60); Est Glom Filt Rate - Afr Amer 37 mL/min (>60); Estimated Creatinine Clearance 21.35 ml/min; Globulin 3.5 g/dL (2.2-4.2); Glucose 105 mg/dL (74-106); High Density Lipoprotein 24 mg/dL; Potassium 3.5 mmol/L (3.5-5.1); Protein, Total 5.7 g/dL (6.4-8.2); Sodium Level 142 mmol/L (136-145); Thyroid Stim Hormone (TSH) 0.69 uIU/mL (0.358-3.74); Triglycerides 53 mg/dL; Very Low Density Lipoprotein 11 mg/dL (5-40)
[2023-02-11 05:51] LABS: Anisocytosis 1+; Platelet Estimate SLT DEC (ADEQ)
[2023-02-11 05:55] LABS: Absolute Lymphocyte Count 0.36 X10^3/uL (0.83-4.51); Absolute Neutrophil Count 5.2 X10^3/uL (2.0-7.7); Total Cells Counted 100 (MANUAL DIFF)
--- NOTE | 2023-02-11 05:55 | US_ITS ---
STUDY: RENAL ULTRASOUND - COMPLETE REASON FOR EXAM: Male, 87 years old. Acute kidney injury. TECHNIQUE: Ultrasound evaluation of the kidneys was performed with real-time and static winn-scale imaging. COMPARISON: Right upper quadrant ultrasound, February 10, 2023 FINDINGS: RIGHT KIDNEY: Normal location of the right kidney, which is normal in size. The right kidney measures 10.5 cm. There is a normal cortex of the right kidney. The renal cortex measures 1.7 cm. There is no right renal mass or cyst. There are no right renal calculi. There is no right hydronephrosis. DISTAL RIGHT URETER: There is non-visualization of the distal right ureter. There is no demonstrated right ureterovesical junction calculus. There is no demonstrated right ureteral jet. LEFT KIDNEY: Normal location of the left kidney, which is normal in size. The left kidney measures 11.5 cm. There is a normal cortex of the left kidney. The renal cortex measures 1.3 cm. There is an exophytic 3.7 x 2.8 x 2.36 cm simple cyst off the upper pole. There are no left renal calculi. There is no left hydronephrosis. DISTAL LEFT URETER: There is non-visualization of the distal left ureter. There is no demonstrated left ureterovesical junction calculus. There is no demonstrated left ureteral jet. BLADDER: The distended urinary bladder has a volume of 79 ml. There is trabeculation of the bladder wall which measures 3 mm in thickness. There is no demonstrated mass within the urinary bladder. There are no demonstrated bladder calculi. Incidental finding is splenomegaly this. The spleen measures 13.4 cm in greatest dimension. US/Kidney and Bladder IMPRESSION: 1. Unremarkable left renal cyst. This requires no further follow-up. The kidneys are otherwise unremarkable. 2. A mildly trabeculated bladder wall without other evidence of urinary bladder abnormality. Electronically Signed: Bennie Chaparro DO at 18:58 EDT ,
[2023-02-11 05:56] LABS: Lymphocyte 6 % (19-41); Monocyte 4 % (0-10); Myelocyte 3 % (0-0); Neutrophil-Band 9 % (0-5); Neutrophil-Segmented 78 % (47-70)
--- NOTE | 2023-02-11 07:30 | EKG12_ITS ---
Test Reason : ADMIT TO FLOOR Blood Pressure : / mmHG Vent. Rate : 083 BPM Atrial Rate : 070 BPM P-R Int : 000 ms QRS Dur : 086 ms QT Int : 356 ms P-R-T Axes : 000 100 039 degrees QTc Int : 418 ms Atrial fibrillation Rightward axis Borderline ECG When compared with ECG of 10-FEB-2023 15:33, MANUAL COMPARISON REQUIRED, DATA IS UNCONFIRMED Confirmed by CHUCK STOVER, DION ([id number]), video effects editor RANDAL VARGAS ([id number]) on 02/12/2023 9:58:33 AM Referred By: Confirmed By:DION WOODS MD
[2023-02-11] MEDS: hydrALAZINE 10 MG Tablet 20 MG PO ×3 (08:57→17:15)
--- NOTE | 2023-02-11 09:08 | PCM.PN.HOSP ---
Reason for Visit Reason for Visit: Diagnoses Non-ST elevation (NSTEMI) myocardial infarction (02/10/23) Heart failure, unspecified (02/10/23) Gastrointestinal hemorrhage, unspecified (02/10/23) Subjective Subjective Follow-up for multiple issues as mentioned above including non-STEMI, heart failure exacerbation, GI bleed and kidney dysfunction. Objective Data Objective Data Vital Signs: Vital Signs Temp Pulse Resp BP Pulse Ox O2 Del Method 97.7 F L 66 18 118/41 L 96 Room Air 02/11/23 08:53 02/11/23 08:57 02/11/23 08:53 02/11/23 08:53 02/11/23 08:53 02/11/23 08:53 Oxygen Delivery Method Room Air Weight: 181 lb 3.52 oz Body Mass Index (BMI) 29.2 Intake & Output: Intake and Output for Last 24 Hours 02/09/23 02/10/23 02/11/23 23:59 23:59 23:59 Intake Total 110 / 310 250 / 250 Output Total 250 / 250 Balance 110 / 60 0 / 0 Lab / Micro Data Result Diagrams: 02/11/23 04:02 02/11/23 04:02 Labs: Laboratory Results - last 24 hr 02/10/23 15:40: WBC 8.1, RBC 2.96 L, Hgb 7.9 L, Hct 25.7 L, MCV 86.8, MCH 26.7 L, MCHC 30.7 L, RDW Std Deviation 50.9 H, RDW Coeff of [place] 15.9 H, Plt Count 117 L, MPV 12.3 H, Immature Gran % (Auto) 3.200 H, Neut % (Auto) 88.8 H, Lymph % (Auto) 4.3 L, [place] % (Auto) 3.6, Eos % (Auto) 0.0, Baso % (Auto) 0.1, Absolute Neuts (auto) 7.2, Absolute Lymphs (auto) 0.35 L, Nucleated RBC % 0, Differential Comment SCANNED 02/10/23 15:40: Sodium 140, Potassium 3.8, Chloride 107, Carbon Dioxide 22.0, Anion Gap 11, BUN 62 H, Creatinine 2.45 H, Estim Creat Clear Calc 19.17, Est GFR (MDRD) Af Amer 32 L, Est GFR (MDRD) Non-Af 27 L, BUN/Creatinine Ratio 25.3 H, Glucose 160 H, Calcium 8.7, Total Bilirubin 1.20 H, Direct Bilirubin 0.57 H, AST 37, ALT 26, Alkaline Phosphatase 94, Troponin I High Sens 277 H*, Total Protein 6.8, Albumin 2.7 L, Globulin 4.1 02/10/23 15:40: B-Natriuretic Peptide 390.3 H 02/10/23 15:40: Phosphorus 3.6, Magnesium 2.1 02/10/23 22:02: Urine Color Yellow, Urine Clarity Clear, Urine pH 7.0, Ur Specific [place] 1.005, Urine Protein 30 H, Urine Glucose (UA) Normal, Urine Ketones Negative, Urine Occult Blood 250 H, Urine Nitrite Negative, Urine Bilirubin Negative, Urine Urobilinogen Normal, Ur Leukocyte Esterase 500 H, Urine RBC 0-5 SEEN, Urine WBC 10-25 SEEN, Ur Squamous Epith Cells 0 SEEN, Urine Bacteria 3+, Urine Mucus 0 SEEN 02/10/23 22:02: Ur Random Sodium 89, Urine Creatinine 15.80 02/10/23 22:05: Hgb 7.8 L, Hct 24.8 L 02/10/23 22:05: Troponin I High Sens 311 H* 02/10/23 23:35: Hgb 7.3 L, Hct 23.2 L 02/10/23 23:35: Troponin I High Sens 307 H* 02/11/23 04:02: WBC 5.9, RBC 2.61 L, Hgb 7.1 L, Hct 22.3 L, MCV 85.4, MCH 27.2, MCHC 31.8 L, RDW Std Deviation 49.6 H, RDW Coeff of [place] 15.9 H, Plt Count 110 L, MPV 12.1 H, Neut % (Auto) Not Reportable, Absolute Neuts (auto) 5.2, Absolute Lymphs (auto) 0.36 L, Total Counted 100, Neutrophils % (Manual) 78 H, Band Neutrophils % 9 H, Lymphocytes % (Manual) 6 L, Monocytes % (Manual) 4, Myelocytes % 3 H, Diff Path Review January, Platelet Estimate SLT DEC, Anisocytosis 1+ 02/11/23 04:02: Sodium 142, Potassium 3.5, Chloride 111 H, Carbon Dioxide 22.0, Anion Gap 9, BUN 61 H, Creatinine 2.20 H, Estim Creat Clear Calc 21.35, Est GFR (MDRD) Af Amer 37 L, Est GFR (MDRD) Non-Af 30 L, BUN/Creatinine Ratio 27.7 H, Glucose 105, Calcium 8.3 L, Total Bilirubin 1.20 H, AST 28, ALT 21, Alkaline Phosphatase 77, Total Protein 5.7 L, Albumin 2.2 L, Globulin 3.5, Albumin/Globulin Ratio 0.6 L, Triglycerides 53, Cholesterol 53, LDL Cholesterol 18, VLDL Cholesterol 11, HDL Cholesterol 24 L, TSH 0.69 02/11/23 04:02: Troponin I High Sens 304 H* Micro: Microbiology 02/10/23 16:43 Stool Stool Occult Blood (CLEVE) - Final Occult Blood Positive Radiography Diagnostic Testing: Radiology Impression Chest X-Ray 02/10/23 15:25 IMPRESSION: Mild degree of CHF with small right pleural effusion and right basilar atelectasis. Cardiomegaly. Electronically Signed: David Wolff MD at 15:44 EDT , Gallbladder Ultrasound 02/10/23 17:45 IMPRESSION: Mild ascites. Question of cirrhosis. Cholelithiasis. Electronically Signed: Tawanda Woods MD at 18:39 EDT , Physical Exam Narrative Seen and examined. Lower extremity edema worsened for last 4 days. Shortness of breath is better. Denies dyspnea at rest. No chest pain or pressure. Bilateral lower extremity swelling. Complain of pain over right anteromedial thigh above the knee. Chronic seepage of fluid/transudate from both legs right more than left. Physical exam General: Alert, Oriented x3, Cooperative, BMI 29.2 kg/m? HEENT: Atraumatic, PERRLA, EOMI, Normocephalic Oral: No Gingival or Mucosal Lesions/ Ulcerations Neck: Supple, No JVD, Negative Carotid Bruits Lungs: Air entry diminished in bilateral lung bases. No crepitation/rhonchi Cardiovascular: Regular rate, Regular Rhythm, Normal S1, Normal S2, No murmurs Abdomen: Bowel Sounds Present, Soft, Non Tender, Non-Distended : No renal angle tenderness. No suprapubic tenderness. Extremities: 3+ leg edema above the knee. Reji wrap bandage., Capillary Refill Less than 3 Seconds Skin: Multiple superficial ulcer with seepage of fluid. Musculoskeletal: Mild tenderness of right anterolateral thigh with induration. ROM restricted. Mobility/ambulation on assistive device for last 3 weeks. Neurological: Cranial nerves II-XII grossly intact, DTR 2+/4 and Symmetrical, Neuro grossly intact Psych/Mental Status: Flat affect. Assessment & Plan Assessment/Plan (1) CHF exacerbation: (2) GI bleed: (3) NSTEMI, initial episode of care: PLAN: Plan The patient is an 87 y/o M Was admitted to ER for dyspnea on exertion and lower extremity edema large for last 4 days. Patient did not had chest discomfort. No fever chills cough or URI symptoms. #1. Acute Decompensated Presumed Diastolic CHF with moderate severe valvular heart disease elevated cardiac enzymes as noted #3: PCU. Patient had IV Lasix in ED and continued on it. ECHO noted 04/16/2022 with normal LV systolic function, EF 60%, LA severely enlarged, RA moderately enlarged, mild to moderate MVI, moderately severe TVI, trivial NILSON, mild PVI, RVSP 78 mmHg with evidence severe pulmonary hypertension Heart failure core measures including intake and output, fluid restriction less than 1500 mL, daily weight monitoring, kidney and electrolytes monitoring. Patient not on REJI/ARB due to possible RODRÍGUEZ. Low dose beta-jodie with holding parameters. Lipid profile shows LDL 18, HDL 24. TSH normal. Serum magnesium and phosphorus normal. On high intensity statin. #2. Anemia, acute on chronic suspected due to GI bleed with complication of chronic anticoagulant therapy and Cirrhotic disease w/ Prior EtOH Abuse history: Admission hemoglobin 7.9, MCV 86.8 with no clear prior baseline even in clinic sink system. Between 7 to 7.9 g gradually decreasing. Patient has history of cirrhosis and anticoagulant treatment. Guaiac positive. Assistant Center Director consulted. 02/11 patient n.p.o. for possible EGD. #3. Acute myocardial injury probably non-STEMI type II from demand ischemia from heart failure exacerbation/valvular heart disease: EKG in ED w/ SR without acute evidence of ischemia, chest x-ray with mild degree of CHF with a small right pleural effusion and right basilar atelectasis as well as cardiomegaly, Trop elevated 277, 311, 307 and 304 flat and plateau. Claims Account Specialist consulted. Echo is requested. At this time, patient not candidate for antiplatelet/anticoagulant due to given active GI bleed. Rest as mentioned above. #4. Suspected RODRÍGUEZ although unclear if underlying CKD unclear stage : Admission BUN/creatinine 62/2.45, suspected acute with elevated BUN probably from GI bleed. On IV diuretic because of hypervolemia physiology. 02/11: Mild improvement in creatinine 2.2. BUN 61. UA reviewed SG normal. Mild proteinuria. LE 500, RBC 0-5 WBCs 10-25 cells, bacteria 3+. Urine sodium 89. Based on IV ceftriaxone that will cover possible UTI or concern of RODRÍGUEZ from HRS. Protein creatinine ratio. #5. Hyperglycemia: Admission glucose 160, no prior diabetic history reported, will obtain hemoglobin A1c and if appropriate obtain nutrition consultation for education and teaching, ADA diet once clinically appropriate and Accu-Cheks with insulin sliding scale. #6. Thrombocytopenia, unclear if acute or chronic: Admission platelet 117, given anemia as well temporally holding anticoagulation pending further work-up as noted, will trend CBC #7. Chronic Asthma: Will maintain on oxygen with wean as tolerated to room air, will temporally hold home inhaler in the interim transition to ATC budesonide therapy, PRN albuterol, HOB, IS parameters. #8. PAF: Not on rate or rhythm agent per review of current list but clarifying, on chronic Pradaxa regimen, temporarily holding given anemia noted and unclear baseline. #9. Hypertension: Continue home regimen including hydralazine, IV Lasix as noted, not on beta-jodie or REJI inhibitor however clarifying list, PRN hydralazine. #10. Hyperlipidemia: Continue home statin regimen. AM FLP. #11. BPH: We will continue patient home finasteride and doxazosin home regimen. #12. GERD: We will maintain on IV PPI pending further work-up given anemia and unclear baseline hemoglobin level. #13. DVT prophylaxis: SCDs, holding Pradaxa given #2 is noted. #14. CODE status: Patient HCPOA and living will is not in place however he notes his would be his decision maker if this was necessary. Discussed CODE status at length including difference between FULL code, DNR-CCA and DNR-CC status. Following discussions about the differences in these status, requested Full Code status. Charges/Coding Addendum Addendum: Total time of the visit including total time spent in counseling or coordination of care, (more than 50% of the total time, spent in obtaining medical information from nurses and other ancillary care providers,explaining to the patient about labs, imaging, diagnosis and management of active complex medical conditions), multiple consultants chief power dispatcher, reverse logistics analyst gastrologist, review of labs and imaging is 50 minutes. Visit Charges Inpatient E&M: 60442 Subs Hosp L3
--- NOTE | 2023-02-11 10:15 | CASEMGMT ---
RN CM Face to Face with patient for initial transition planning/care coordination assessment. RN CM introduced self and role at [facility]. Patient lying in bed, alert and oriented. Patient willing to participate in assessment and is able to answer all questions appropriately. Care providers, pharmacy, and demographics verified. Patient wishes to discharge home will monitor progress with therapy for possible HHC vs SNF. Patient states he has no further needs or concerns at this time. CM to follow for discharge planning needs that may arise. PCP: Barbara Specialists: Ld, nursing project coordinator Blanquita Preferred Pharmacy: [facility] Insurance: [employer] [facility] Prescription Benefit: yes Living Will/HPOA: none LNOK: , son Living Arrangements: patient lives with in a single story home with 3 steps and railing to enter the home. Patient states he is independent but helps him at times. Transportation: self, family DME/HHC: Patient has shower chair, raised toilet, grab bars, walker, rollator, wheelchair at home. No previous HHC or SNF. Disposition Plan: TBD, anticipate HHC vs SNF pending progress with therapy. Negin HERNANDEZ, RN, CM
[2023-02-11 10:26] LABS: Hemoglobin A1c < 3.8 % (3.8-5.6)
[2023-02-11] MEDS: 0.9% Saline Lock 10 ML Syringe IV (10:52)
[2023-02-11] MEDS: Metoprolol Tartrate 25 MG Tablet 12.5 MG PO ×2 (10:52→22:15)
[2023-02-11] MEDS: Finasteride 5 MG Tablet PO (10:52)
[2023-02-11] MEDS: Furosemide 40 MG/4 ML Vial IV ×2 (10:52→17:15)
--- NOTE | 2023-02-11 11:04 | VDLE_ITS ---
Reason For Study: BLE SWELLING RIGHT LEFT GSV is normal. GSV is normal. CFV is compressible, spontaneous, competent CFV is compressible, spontaneous, competent, and demonstrates pulsatile venous flow. and demonstrates pulsatile venous flow. FV is compressible, spontaneous, competent FV is compressible, spontaneous, competent and demonstrates pulsatile venous flow. and demonstrates pulsatile venous flow. POP V is compressible, spontaneous, competent POP V is compressible, spontaneous, competent and demonstrates pulsatile venous flow. and demonstrates pulsatile venous flow. T/P Trunk is compressible. T/P Trunk is compressible. PTV is compressible. PTV is compressible. RT PerV is compressible. LT PerV is compressible. Procedure This is a venous duplex using B-mode, color flow and spectral Doppler. Exam performed portable in patient room. The study was technically difficult. A preliminary report was called and/or faxed to EDWARD BUSTILLOS RN & PCU. VL/Venous Duplex US - Emiliano Extrem Interpretation Summary Deep veins of the bilateral lower extremities are patent and compressible segme ntally. There is no evidence of bilateral lower extremity deep vein thrombosis. The bilateral great saphenous veins appear patent and compressible segmentally. Ordering Physician: Ryan Cowart Referring Physician: Atilio Jimenez Performed By: Alicia Aranda RDCS, RVT
--- NOTE | 2023-02-11 11:17 | PCM.CONS.R ---
Assessment & Plan Assessment/Plan (1) Renal insufficiency: (2) Dyspnea: (3) Hypertension: PLAN: Plan This is an 87-year-old male who presented to the emergency room with complaints of shortness of breath and worsening lower extremity edema admitted for further evaluation and treatment. Nephrology consulted as patient noted to have a creatinine of 2.45 mg/dL yesterday; concern for cardiorenal syndrome physiology versus hepatorenal syndrome physiology. Today creatinine 2.20. Unclear at this time if this is RODRÍGUEZ or CKD at baseline. We will attempt to obtain past lab work to determine baseline creatinine. Renal ultrasound ordered and result pending. UA showed 30 of protein, occult blood 250, no RBC. Patient had abdominal ultrasound which showed mild ascites, cholelithiasis and questionable cirrhosis; no right hydronephrosis. 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 Repeat echo pending. Cardiology consulted. Blood pressures were acceptable on admission and have been acceptable during hospitalization, patient is on Cardura, furosemide, metoprolol tartrate and hydralazine. Patient noted to be anemic, hemoglobin 7 with positive stool guaiac, he is on PPI drip and GI has been consulted. At this time there is no acute indication for FLIGHT OPERATIONS COORDINATOR, patient is nonoliguric, potassium and acid-base acceptable. Patient is hypervolemic and recommended continue with furosemide as ordered. Duplex of both legs ordered to rule out DVT. We will check protein creatinine ratio. Labs including magnesium ordered for the morning. We will attempt to obtain past labs to determine baseline creatinine. Further orders forthcoming as hospitalization evolves, thank you for allowing us participate in the care of Mr. Castillo. HPI Consult Data Date of Consult: 02/11/23 HPI Narrative HPI Narrative: VAMSI CASTILLO, is a 87 M with past medical history significant for hypertension, atrial fibrillation, GERD, BPH, history of diastolic heart failure, history of alcohol abuse who presented to the room yesterday with complaints of shortness of breath on exertion and worsening lower extremity edema. In the emergency room patient was noted to have hemoglobin 7.9, creatinine 2.45, glucose 160. He was admitted for further evaluation and treatment. Nephrology consulted for renal insufficiency. Patient reports he has not been seen by seed laboratory assistant in the past. Only lab work to review at this time is from this hospitalization, yesterday creatinine 2.45 mg/dL and today creatinine 2.20 mg/dL. Patient denies any recent nausea vomiting or diarrhea before coming to the emergency room. Denies NSAID use. Denies any urinary habitus changes including dysuria, hematuria increased or decreased urine output. Patient reports he had been taking his diuretic daily as prescribed and sometimes twice daily if noted worsening lower extremity edema [facility] Medical History (Updated 02/11/23 @ 11:23 by Lalita Lorenz NP-C) Anemia Asthma Atrial fibrillation BPH (benign prostatic hyperplasia) CKD (chronic kidney disease) GERD (gastroesophageal reflux disease) History of alcohol abuse Hyperlipidemia Hypertension Obesity Home Medications albuterol sulfate 90 mcg/actuation aerosol inhaler 1 puff inhalation PRN PRN Shortness Of Breath 02/10/23 [History Last Taken Unknown] budesonide-formoterol HFA 160 mcg-4.5 mcg/actuation aerosol inhaler (Symbicort) 1 puff inhalation BID 02/10/23 [History Last Taken Unknown] dabigatran etexilate 150 mg capsule (Pradaxa) 150 mg PO BID 02/10/23 [History Last Taken Unknown] doxazosin 4 mg tablet 4 mg PO QHS 02/10/23 [History Last Taken Unknown] finasteride 5 mg tablet 5 mg PO DAILY 02/10/23 [History Last Taken Unknown] hydralazine 10 mg tablet 20 mg PO TID 02/10/23 [History Last Taken Unknown] omeprazole 20 mg capsule,delayed release 20 mg PO DAILY 02/10/23 [History Last Taken Unknown] simvastatin 20 mg tablet 20 mg PO QHS 02/10/23 [History Last Taken Unknown] zolpidem 10 mg tablet 10 mg PO QHS PRN PRN Sleep 02/10/23 [History Last Taken Unknown] Allergy/AdvReac Type Severity Reaction Status Date / Time No Known Allergies Allergy Verified 02/10/23 15:02 Family History (Updated 02/10/23 @ 20:[address] Bel Dennis MD) Mother CVA (cerebral vascular accident) Hypertension Father CVA (cerebral vascular accident) Hypertension Sister COPD (chronic obstructive pulmonary disease) Lung cancer Diabetes Surgical History (Updated 02/10/23 @ 20:[address] Bel Dennis MD) History of inguinal hernia repair Social History (Updated 02/10/23 @ 20:[address] Bel Dennis MD) household members: spouse Smoking Status: Never smoker alcohol intake: current alcohol intake frequency: a few times a month details: Notes currently 1-2 beers q 2 weeks, prior heavy at least 2-3 or more daily substance use type: does not use ROS ROS Narrative As in HPI and past medical history Physical Exam Narrative Alert and oriented x3, no apparent distress S1, S2, RRR Lung sounds clear anteriorly and posteriorly. No wheezes, rhonchi or rales noted. On room air Abdomen soft, nondistended, positive bowel sounds 3+ pitting edema noted bilateral lower legs with right greater than worse. Reji wrap intact to both legs. Edema noted to bilateral thighs, right greater than left Lab / Micro Data Result Diagrams: 02/11/23 04:02 02/11/23 04:02 Labs: Laboratory Results - last 24 hr 02/10/23 15:40: WBC 8.1, RBC 2.96 L, Hgb 7.9 L, Hct 25.7 L, MCV 86.8, MCH 26.7 L, MCHC 30.7 L, RDW Std Deviation 50.9 H, RDW Coeff of [place] 15.9 H, Plt Count 117 L, MPV 12.3 H, Immature Gran % (Auto) 3.200 H, Neut % (Auto) 88.8 H, Lymph % (Auto) 4.3 L, [place] % (Auto) 3.6, Eos % (Auto) 0.0, Baso % (Auto) 0.1, Absolute Neuts (auto) 7.2, Absolute Lymphs (auto) 0.35 L, Nucleated RBC % 0, Differential Comment SCANNED 02/10/23 15:40: Sodium 140, Potassium 3.8, Chloride 107, Carbon Dioxide 22.0, Anion Gap 11, BUN 62 H, Creatinine 2.45 H, Estim Creat Clear Calc 19.17, Est GFR (MDRD) Af Amer 32 L, Est GFR (MDRD) Non-Af 27 L, BUN/Creatinine Ratio 25.3 H, Glucose 160 H, Calcium 8.7, Total Bilirubin 1.20 H, Direct Bilirubin 0.57 H, AST 37, ALT 26, Alkaline Phosphatase 94, Troponin I High Sens 277 H*, Total Protein 6.8, Albumin 2.7 L, Globulin 4.1 02/10/23 15:40: B-Natriuretic Peptide 390.3 H 02/10/23 15:40: Phosphorus 3.6, Magnesium 2.1 02/10/23 22:02: Urine Color Yellow, Urine Clarity Clear, Urine pH 7.0, Ur Specific [place] 1.005, Urine Protein 30 H, Urine Glucose (UA) Normal, Urine Ketones Negative, Urine Occult Blood 250 H, Urine Nitrite Negative, Urine Bilirubin Negative, Urine Urobilinogen Normal, Ur Leukocyte Esterase 500 H, Urine RBC 0-5 SEEN, Urine WBC 10-25 SEEN, Ur Squamous Epith Cells 0 SEEN, Urine Bacteria 3+, Urine Mucus 0 SEEN 02/10/23 22:02: Ur Random Sodium 89, Urine Creatinine 15.80 02/10/23 22:05: Hgb 7.8 L, Hct 24.8 L 02/10/23 22:05: Troponin I High Sens 311 H* 02/10/23 23:35: Hgb 7.3 L, Hct 23.2 L 02/10/23 23:35: Troponin I High Sens 307 H* 02/11/23 04:02: WBC 5.9, RBC 2.61 L, Hgb 7.1 L, Hct 22.3 L, MCV 85.4, MCH 27.2, MCHC 31.8 L, RDW Std Deviation 49.6 H, RDW Coeff of [place] 15.9 H, Plt Count 110 L, MPV 12.1 H, Neut % (Auto) Not Reportable, Absolute Neuts (auto) 5.2, Absolute Lymphs (auto) 0.36 L, Total Counted 100, Neutrophils % (Manual) 78 H, Band Neutrophils % 9 H, Lymphocytes % (Manual) 6 L, Monocytes % (Manual) 4, Myelocytes % 3 H, Diff Path Review January foll, Platelet Estimate SLT DEC, Anisocytosis 1+ 02/11/23 04:02: Sodium 142, Potassium 3.5, Chloride 111 H, Carbon Dioxide 22.0, Anion Gap 9, BUN 61 H, Creatinine 2.20 H, Estim Creat Clear Calc 21.35, Est GFR (MDRD) Af Amer 37 L, Est GFR (MDRD) Non-Af 30 L, BUN/Creatinine Ratio 27.7 H, Glucose 105, Calcium 8.3 L, Total Bilirubin 1.20 H, AST 28, ALT 21, Alkaline Phosphatase 77, Total Protein 5.7 L, Albumin 2.2 L, Globulin 3.5, Albumin/Globulin Ratio 0.6 L, Triglycerides 53, Cholesterol 53, LDL Cholesterol 18, VLDL Cholesterol 11, HDL Cholesterol 24 L, TSH 0.69 02/11/23 04:02: Hemoglobin A1c < 3.8 L 02/11/23 04:02: Troponin I High Sens 304 H* Micro: Microbiology 02/10/23 16:43 Stool Stool Occult Blood (CLEVE) - Final Occult Blood Positive Radiology Impression Chest X-Ray 02/10/23 15:25 IMPRESSION: Mild degree of CHF with small right pleural effusion and right basilar atelectasis. Cardiomegaly. Electronically Signed: David Woflf MD at 15:44 EDT , Gallbladder Ultrasound 02/10/23 17:45 IMPRESSION: Mild ascites. Question of cirrhosis. Cholelithiasis. Electronically Signed: Tawanda Woods MD at 18:39 EDT ,
--- NOTE | 2023-02-11 13:04 | CHAPLAIN ---
Type of Pastoral Visit _x__ Initial Visit ___ Follow-up Visit ___ On-call Visit ___ General Patient Visit ___ Spiritual Assessment ___ Family Conference ___ Bereavement ___ Rapid Response ___ Code Blue ___ Other (describe below) Pastoral Care Referral From _x__ Patient ___ Family ___ Nurse ___ Physician ___ Superintendent Maintenance ___ Wool Shearing Supervisor ___ Other (describe below) Sacrament/Intervention _x__ Active listening ___ Anointing ___ Roman Catholic ___ Bereavement ___ Communion ___ Lila exploration ___ _x__ Life review _x__ Prayer ___ Reconciliation ___ Sacrament of Sick _x__ Supportive presence ___ Wedding ___ Other (describe below) Pastoral Comments patient reports on his who was seen by this can piler two weeks ago; pt is concerned that his hospitalization will prevent him from helping with her medical needs; pt talks about his concerns and welcomes a prayer
--- NOTE | 2023-02-11 13:18 | CON.PCM.CA_ITS ---
Documented by User: Destini HERRERA, PA 02/11/23 13:46 Assessment & Plan Assessment/Plan (1) NSTEMI, initial episode of care: (2) Acute on chronic diastolic heart failure: (3) Pulmonary hypertension: (4) Hypertension: (5) Renal insufficiency: PLAN: Plan * Pts troponins peaked at 311, feel his NSTEMI is likely related to demand ischemia d/t his anemia. He does not have any symptoms of angina. Echo is pending. Do not feel stress/heart cath are indicated at this time. * Pt does have Afib, his pradaxa is being held. He is in a low dose of metoprolol. Will need to monitor his HR as he is bradycardic. GI was consulted to help with his anemia * Diastolic heart failure could be related to his severe pulmonary HTN, recommend that he continue to be diuresed with IV Lasix. Can transition back over to p.o. Lasix. Nephrology was involved with his chronic kidney disease. Did request his cardiology notes. If echo does not demonstrate any significant changes when compared to previous will sign off of care. Please let us know if any additional input is needed/ HPI Consult Data Date of Consult: 02/11/23 HPI Narrative HPI Narrative: VAMSI CASTILLO, is a 87 M who presented to the ER increasing lower extremity edema and SOB over the last few weeks. He did have a lower extremity duplex, this was negative. 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 He tells me he has a hx of an OK but did not require stents or bypass. He does have a hx of Atrial fibrillation, HTN, Pulmonary HTN, Hyperlipidemia, CKD and ETOH use. [facility] Medical History (Updated 02/11/23 @ 13:40 by Destini HERRERA, PA) Anemia Asthma Atrial fibrillation BPH (benign prostatic hyperplasia) CKD (chronic kidney disease) GERD (gastroesophageal reflux disease) History of alcohol abuse Hyperlipidemia Hypertension Obesity Home Medications albuterol sulfate 90 mcg/actuation aerosol inhaler 1 puff inhalation PRN PRN Shortness Of Breath 02/10/23 [History Last Taken Unknown] budesonide-formoterol HFA 160 mcg-4.5 mcg/actuation aerosol inhaler (Symbicort) 1 puff inhalation BID 02/10/23 [History Last Taken Unknown] dabigatran etexilate 150 mg capsule (Pradaxa) 150 mg PO BID 02/10/23 [History Last Taken Unknown] doxazosin 4 mg tablet 4 mg PO QHS 02/10/23 [History Last Taken Unknown] finasteride 5 mg tablet 5 mg PO DAILY 02/10/23 [History Last Taken Unknown] hydralazine 10 mg tablet 20 mg PO TID 02/10/23 [History Last Taken Unknown] omeprazole 20 mg capsule,delayed release 20 mg PO DAILY 02/10/23 [History Last Taken Unknown] simvastatin 20 mg tablet 20 mg PO QHS 02/10/23 [History Last Taken Unknown] zolpidem 10 mg tablet 10 mg PO QHS PRN PRN Sleep 02/10/23 [History Last Taken Un known] Allergy/AdvReac Type Severity Reaction Status Date / Time No Known Allergies Allergy Verified 02/10/23 15:02 Family History (Updated 02/10/23 @ 20:[address] Bel Dennis MD) Mother CVA (cerebral vascular accident) Hypertension Father CVA (cerebral vascular accident) Hypertension Sister COPD (chronic obstructive pulmonary disease) Lung cancer Diabetes Surgical History (Updated 02/10/23 @ 20:[address] Bel Dennis MD) History of inguinal hernia repair Social History (Updated 02/10/23 @ 20:[address] Bel Dennis MD) household members: spouse Smoking Status: Never smoker alcohol intake: current alcohol intake frequency: a few times a month details: Notes currently 1-2 beers q 2 weeks, prior heavy at least 2-3 or more daily substance use type: does not use ROS ROS Narrative see HPI Physical Exam Const alert, oriented x3 and no apparent distress HEENT normocephalic, head/scalp atraumatic, hearing grossly normal bilaterally, external ears normal, external nose normal and moist oral mucous membranes Eyes PERRL, EOMs intact bilaterally, conjunctivae normal and no scleral icterus Neck no lymphadenopathy and supple Neck Narrative: JVD Resp Auscultation: diminished lung sounds bilateral Cardio S1 normal heart sound, S2 normal heart sound, no murmurs, no rub, no gallops, no clicks and no JVD Jugular Venous Distention: JVD Rate: bradycardia Rhythm: regular rhythm GI Inspection: abdominal distention Extremity Extremity Narrative: +3 lower extremity edema, extends up to abdomen with dependent edema Neuro oriented x3, CN's II-XII intact bilaterally, moves all extremities and no focal motor deficits Psych cooperative and affect normal Risk Stratification Risk Stratification Applicable: Yes Age >/= 65: Yes >/= 3 CAD Risk Factors (HTN, HLD, DM, family hx of CAD, or current smoker): Yes Aspirin Use in the Past 7 Days: No Severe Angina (>/= episodes in 24 hours): No EKG ST Changes >/= 0.5mm: No Positive Cardiac Marker: Yes JANI Risk Stratification Score: 3 JANI % Risk: 13% Risk Charges/Coding Visit Charges Office Visits / Consults: 54168 IP Consult L3 Objective Data Vital Signs: Vital Signs Temp Pulse Resp BP Pulse Ox O2 Del Method 97.7 F L 50 L 18 128/47 H 96 Room Air 02/11/23 08:53 02/11/23 12:33 02/11/23 08:53 02/11/23 12:33 02/11/23 08:53 02/11/23 09:30 Oxygen Delivery Method Room Air Weight: 181 lb 3.52 oz Body Mass Index (BMI) 29.2 Intake & Output: Intake and Output for Last 24 Hours 02/09/23 02/10/23 02/11/23 23:59 23:59 23:59 Intake Total 110 / 310 360 / 360 Output Total 350 / 350 Balance 110 / 60 Lab / Micro Data Result Diagrams: 02/11/23 04:02 02/11/23 04:02 Labs: Laboratory Results - last 24 hr 02/10/23 15:40: WBC 8.1, RBC 2.96 L, Hgb 7.9 L, Hct 25.7 L, MCV 86.8, MCH 26.7 L , MCHC 30.7 L, RDW Std Deviation 50.9 H, RDW Coeff of [place] 15.9 H, Plt Count 117 L, MPV 12.3 H, Immature Gran % (Auto) 3.200 H, Neut % (Auto) 88.8 H, Lymph % (Auto) 4.3 L, [place] % (Auto) 3.6, Eos % (Auto) 0.0, Baso % (Auto) 0.1, Absolute Neuts (auto) 7.2, Absolute Lymphs (auto) 0.35 L, Nucleated RBC % 0, Differential Comment SCANNED 02/10/23 15:40: Sodium 140, Potassium 3.8, Chloride 107, Carbon Dioxide 22.0, Anion Gap 11, BUN 62 H, Creatinine 2.45 H, Estim Creat Clear Calc 19.17, Est GFR (MDRD) Af Amer 32 L, Est GFR (MDRD) Non-Af 27 L, BUN/Creatinine Ratio 25.3 H, Glucose 160 H, Calcium 8.7, Total Bilirubin 1.20 H, Direct Bilirubin 0.57 H, AST 37, ALT 26, Alkaline Phosphatase 94, Troponin I High Sens 277 H*, Total Protein 6.8, Albumin 2.7 L, Globulin 4.1 02/10/23 15:40: B-Natriuretic Peptide 390.3 H 02/10/23 15:40: Phosphorus 3.6, Magnesium 2.1 02/10/23 22:02: Urine Color Yellow, Urine Clarity Clear, Urine pH 7.0, Ur Specific [place] 1.005, Urine Protein 30 H, Urine Glucose (UA) Normal, Urine Ketones Negative, Urine Occult Blood 250 H, Urine Nitrite Negative, Urine Bilirubin Negative, Urine Urobilinogen Normal, Ur Leukocyte Esterase 500 H, Urine RBC 0-5 SEEN, Urine WBC 10-25 SEEN, Ur Squamous Epith Cells 0 SEEN, Urine Bacteria 3+, Urine Mucus 0 SEEN 02/10/23 22:02: Ur Random Sodium 89, Urine Creatinine 15.80 02/10/23 22:05: Hgb 7.8 L, Hct 24.8 L 02/10/23 22:05: Troponin I High Sens 311 H* 02/10/23 23:35: Hgb 7.3 L, Hct 23.2 L 02/10/23 23:35: Troponin I High Sens 307 H* 02/11/23 04:02: WBC 5.9, RBC 2.61 L, Hgb 7.1 L, Hct 22.3 L, MCV 85.4, MCH 27.2, MCHC 31.8 L, RDW Std Deviation 49.6 H, RDW Coeff of [place] 15.9 H, Plt Count 110 L, MPV 12.1 H, Neut % (Auto) Not Reportable, Absolute Neuts (auto) 5.2, Absolute Lymphs (auto) 0.36 L, Total Counted 100, Neutrophils % (Manual) 78 H, Band Neutrophils % 9 H, Lymphocytes % (Manual) 6 L, Monocytes % (Manual) 4, Myelocytes % 3 H, Diff Path Review May foll, Platelet Estimate SLT DEC, Anisocytosis 1+ 02/11/23 04:02: Sodium 142, Potassium 3.5, Chloride 111 H, Carbon Dioxide 22.0, Anion Gap 9, BUN 61 H, Creatinine 2.20 H, Estim Creat Clear Calc 21.35, Est GFR (MDRD) Af Amer 37 L, Est GFR (MDRD) Non-Af 30 L, BUN/Creatinine Ratio 27.7 H, Glucose 105, Calcium 8.3 L, Total Bilirubin 1.20 H, AST 28, ALT 21, Alkaline Phosphatase 77, Total Protein 5.7 L, Albumin 2.2 L, Globulin 3.5, Albumi n/Globulin Ratio 0.6 L, Triglycerides 53, Cholesterol 53, LDL Cholesterol 18, VLDL Cholesterol 11, HDL Cholesterol 24 L, TSH 0.69 02/11/23 04:02: Hemoglobin A1c < 3.8 L 02/11/23 04:02: Troponin I High Sens 304 H* Micro: Microbiology 02/10/23 16:43 Stool Stool Occult Blood (CLEVE) - Final Occult Blood Positive Cardiology Labs/Tests 02/10/23 15:40: WBC 8.1, RBC 2.96 L, Hgb 7.9 L, Hct 25.7 L, MCV 86.8, MCH 26.7 L , MCHC 30.7 L, Plt Count 117 L, MPV 12.3 H, Immature Gran % (Auto) 3.200 H, Neut % (Auto) 88.8 H, Lymph % (Auto) 4.3 L, [place] % (Auto) 3.6, Eos % (Auto) 0.0, Baso % (Auto) 0.1, Absolute Neuts (auto) 7.2, Nucleated RBC % 0 02/10/23 15:40: Sodium 140, Potassium 3.8, Chloride 107, Carbon Dioxide 22.0, Anion Gap 11, BUN 62 H, Creatinine 2.45 H, Est GFR (MDRD) Af Amer 32 L, Est GFR (MDRD) Non-Af 27 L, BUN/Creatinine Ratio 25.3 H, Glucose 160 H, Calcium 8.7, Total Bilirubin 1.20 H, Direct Bilirubin 0.57 H 02/10/23 15:40: B-Natriuretic Peptide 390.3 H 02/10/23 15:40: Phosphorus 3.6, Magnesium 2.1 02/10/23 22:02: Urine Color Yellow, Urine Clarity Clear, Urine pH 7.0, Ur Specific [place] 1.005, Urine Protein 30 H, Urine Glucose (UA) Normal, Urine Ketones Negative, Urine Occult Blood 250 H, Urine Nitrite Negative, Urine Bilirubin Negative, Urine Urobilinogen Normal, Ur Leukocyte Esterase 500 H, Urine RBC 0-5 SEEN, Urine WBC 10-25 SEEN 02/10/23 22:05: Hgb 7.8 L, Hct 24.8 L 02/10/23 23:35: Hgb 7.3 L, Hct 23.2 L 02/11/23 04:02: WBC 5.9, RBC 2.61 L, Hgb 7.1 L, Hct 22.3 L, MCV 85.4, MCH 27.2, MCHC 31.8 L, Plt Count 110 L, MPV 12.1 H, Neut % (Auto) Not Reportable, Absolute Neuts (auto) 5.2, Total Counted 100, Neutrophils % (Manual) 78 H, Band Neutrophils % 9 H, Lymphocytes % (Manual) 6 L, Monocytes % (Manual) 4, Myelocytes % 3 H 02/11/23 04:02: Sodium 142, Potassium 3.5, Chloride 111 H, Carbon Dioxide 22.0, Anion Gap 9, BUN 61 H, Creatinine 2.20 H, Est GFR (MDRD) Af Amer 37 L, Est GFR (MDRD) Non-Af 30 L, BUN/Creatinine Ratio 27.7 H, Glucose 105, Calcium 8.3 L, Total Bilirubin 1.20 H, Triglycerides 53, Cholesterol 53, LDL Cholesterol 18, VLDL Cholesterol 11, HDL Cholesterol 24 L 02/11/23 04:02: Hemoglobin A1c < 3.8 L Radiography Diagnostic Testing: Radiology Impression Chest X-Ray 02/10/23 15:25 IMPRESSION: Mild degree of CHF with small right pleural effusion and right basilar atelectasis. Cardiomegaly. Electronically Signed: David Wolff MD at 15:44 EDT , Gallbladder Ultrasound 02/10/23 17:45 IMPRESSION: Mild ascites. Question of cirrhosis. Cholelithiasis. Electronically Signed: Tawanda Woods MD at 18:39 EDT , Documented by User: Dr. Maciej Santos MD 02/11/23 16:22 Assessment & Plan Assessment/Plan (1) NSTEMI, initial episode of care: (2) Acute on chronic diastolic heart failure: (3) Pulmonary hypertension: (4) Hypertension: (5) Renal insufficiency: PLAN: Plan * Pts troponins peaked at 311, feel his NSTEMI is likely related to demand ischemia d/t his anemia. He does not have any symptoms of angina. Echo is pending. Do not feel stress/heart cath are indicated at this time. * Pt does have Afib, his pradaxa is being held. He is in a low dose of metoprolol. Will need to monitor his HR as he is bradycardic. GI was consulted to help with his anemia * Diastolic heart failure could be related to his severe pulmonary HTN, recommend that he continue to be diuresed with IV Lasix. Can transition back over to p.o. Lasix. Nephrology was involved with his chronic kidney disease. Review of the gram showed LV function preserved, moderate to severe eccentric TR With severe pulm hypertension RV systolic pressure 106 mmHg Cardiac care plan recommendations; We will continue medical treatment The elevated cardiac biomarker was high sensitive troponin secondary to type II OK/demand myocardial ischemia Due to multiple factors including acute on chronic diastolic heart failure, anemia, renal insufficiency. Patient has no active symptoms of chest pain. HPI Consult Data Date of Consult: 02/11/23 [facility] Medical History (Updated 02/11/23 @ 13:40 by Destini HERRERA, PA) Anemia Asthma Atrial fibrillation BPH (benign prostatic hyperplasia) CKD (chronic kidney disease) GERD (gastroesophageal reflux disease) History of alcohol abuse Hyperlipidemia Hypertension Obesity Home Medications albuterol sulfate 90 mcg/actuation aerosol inhaler 1 puff inhalation PRN PRN Shortness Of Breath 02/10/23 [History Last Taken Unknown] budesonide-formoterol HFA 160 mcg-4.5 mcg/actuation aerosol inhaler (Symbicort) 1 puff inhalation BID 02/10/23 [History Last Taken Unknown] dabigatran etexilate 150 mg capsule (Pradaxa) 150 mg PO BID 02/10/23 [History Last Taken Unknown] doxazosin 4 mg tablet 4 mg PO QHS 02/10/23 [History Last Taken Unknown] finasteride 5 mg tablet 5 mg PO DAILY 02/10/23 [History Last Taken Unknown] hydralazine 10 mg tablet 20 mg PO TID 02/10/23 [History Last Taken Unknown] omeprazole 20 mg capsule,delayed release 20 mg PO DAILY 02/10/23 [History Last Taken Unknown] simvastatin 20 mg tablet 20 mg PO QHS 02/10/23 [History Last Taken Unknown] zolpidem 10 mg tablet 10 mg PO QHS PRN PRN Sleep 02/10/23 [History Last Taken Unknown] Allergy/AdvReac Type Severity Reaction Status Date / Time No Known Allergies Allergy Verified 02/10/23 15:02 Family History (Updated 02/10/23 @ 20:[address] Bel Dennis MD) Mother CVA (cerebral vascular accident) Hypertension Father CVA (cerebral vascular accident) Hypertension Sister COPD (chronic obstructive pulmonary disease) Lung cancer Diabetes Surgical History (Updated 02/10/23 @ 20:[address] Bel Dennis MD) History of inguinal hernia repair Social History (Updated 02/10/23 @ 20:[address] Bel Dennis MD) household members: spouse Smoking Status: Never smoker alcohol intake: current alcohol intake frequency: a few times a month details: Notes currently 1-2 beers q 2 weeks, prior heavy at least 2-3 or more daily substance use type: does not use Risk Stratification Age >/= 65: Yes JANI Risk Stratification Score: 3 JANI % Risk: 13% Risk Lab / Micro Data Result Diagrams: 02/11/23 04:02 02/11/23 04:02
--- NOTE | 2023-02-11 14:29 | WOUNDNOTE ---
skin photo: left lower leg
--- NOTE | 2023-02-11 14:30 | WOUNDNOTE ---
skin photo: right lower leg
--- NOTE | 2023-02-11 14:32 | WOUNDNOTE ---
Was asked to see patient for drainage from bilateral lower legs. removed the CHANTEL wraps and dressings. there are no open areas noted. moderate serous drainage from the RLE from pinpoint breaks in the skin. washed legs and feet with soap and water. pat dry. placed ABD pads and wrapped with kerlix. reapplied the CHANTEL wraps. pt tolerated well. see skin photos.
[2023-02-11 14:49] LABS: International Normalized Ratio 1.9; Prothrombin Time (Protime)PT. 22.2 SECONDS (11.7-14.9)
[2023-02-11] MEDS: 0.9% Normal Saline 1,000 ML 15 ML IV (15:03)
--- NOTE | 2023-02-11 16:00 | IMM_PTH ---
PATIENT: VAMSI CASTILLO LOC: [facility] U#:[id number] AGE/SX: 87/M ROOM: [facility] RE02/10/[address]: Dr. Ivelisse Cantu DO : 1935 BED: 1 DIS: 02/17/2023 SPEC #: [id number] RECD: 02/12/23 14:35 STATUS: SOUJulianna REQ #: [id number] AMOL: 02/11/23 16:[address]: Ra Malindahsaan DEPT: IMMUNOHISTOCHEMISTRY RECD BY: Vicky Diaz ENTERED: 02/12/23 14:36 SP TYPE: IMMUNO OTHR DR: MD Dr. Atilio Abad DO Dr. Farouk Belal, MD Dr. Olga Voroshilova, MD Dr. Prakash Chand, MD Tissues: Stomach, NOS Procedures: H Pylori (initial) PHYSICIAN & INSTITUTION [place] [id number] SPECIMEN INFORMATION: Tissue Source: Gastric body Clinical Info: Jacquelin Specimen Number: [id number] CPT code: 25087 METHODOLOGY: Deparaffinized sections of prefer/formalin-fixed tissue or PAP/DQ stained slides are incubated with monoclonal/polyclonal antibodies/oligonucleotide probes. Localization is made via biotin free immunoperoxidase method. Appropriate controls are performed and reacted as expected. Results on target cell population are indicated in the following table: RESULTS: ANTIBODY / CLONE RESULT H Pylori (polyclonal) negative These tests were developed and their performance characteristics determined by [facility]. They may not have been cleared or approved by the U.S. Food and Drug Administration. The FDA has determined that such clearance or approval is not necessary. The above immunohistochemical/dualISH markers are ordered and reviewed by the Pathologist. INTERPRETATION: Gastric body, biopsy: Negative for Helicobacter pylori organisms. AM:peter 02/13/2023
--- NOTE | 2023-02-11 16:33 | OP.EGD_ITS ---
Patient Name: Humza Musa Procedure Date: 02/11/2023 4:11 PM Date of : 1935 Age: 87 Procedure: Upper GI endoscopy Indications: Iron deficiency anemia Providers: Vaibhav Petty DO Medicines: Monitored Anesthesia Care Patient Profile: This is an 87 year old male. Refer to note in patient chart for documentation of history and physical. Patient has symptoms. Complications: No immediate complications. Procedure: Pre-Anesthesia Assessment: - Prior to the procedure, a History and Physical was performed, and patient medications and allergies were reviewed. The patient is competent. The risks and benefits of the procedure and the sedation options and risks were discussed with the patient. All questions were answered and informed consent was obtained. Patient identification and proposed procedure were verified by the physician in the pre-procedure area. Mental Status Examination: alert and oriented. Airway Examination: normal oropharyngeal airway and neck mobility. Respiratory Examination: clear to auscultation. CV Examination: normal. Prophylactic Antibiotics: The patient does not require prophylactic antibiotics. Prior Anticoagulants: The patient has taken no previous anticoagulant or antiplatelet agents. ASA Grade Assessment: III - A patient with severe systemic disease. After reviewing the risks and benefits, the patient was deemed in satisfactory condition to undergo the procedure. The anesthesia plan was to use monitored anesthesia care (MAC). Immediately prior to administration of medications, the patient was re-assessed for adequacy to receive sedatives. The heart rate, respiratory rate, oxygen saturations, blood pressure, adequacy of pulmonary ventilation, and response to care were monitored throughout the procedure. The physical status of the patient was re-assessed after the procedure. After obtaining informed consent, the endoscope was passed under direct vision. Throughout the procedure, the patient's blood pressure, pulse, and oxygen saturations were monitored continuously. The Endoscope was introduced through the mouth, and advanced to the second part of duodenum. The upper GI endoscopy was accomplished without difficulty. The patient tolerated the procedure well. Scope In: 4:24:23 PM Scope Out: 4:28:04 PM Total Procedure Duration Time 0 hours 3 minutes 41 seconds Findings: There were esophageal mucosal changes suspicious for Wakefield's esophagus present in the distal esophagus. The maximum longitudinal extent of these mucosal changes was 1 cm in length. A medium-sized hiatal hernia was present. Patchy moderate inflammation with hemorrhage characterized by congestion (edema), erosions, erythema and friability was found in the gastric body. Biopsies were taken with a cold forceps for histology. Biopsies were taken with a cold forceps for histology. Verification of patient identification for the specimen was done. Two oozing linear gastric ulcers with pigmented material were found in the gastric antrum. The largest lesion was 6 mm in largest dimension. Area was successfully injected with 5 mL of a 1:10,000 solution of epinephrine for drug delivery. Coagulation for hemostasis using heater probe was successful. Estimated blood loss was minimal. No gross lesions were noted in the second portion of the duodenum. 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 - Medium-sized hiatal hernia. - Bile gastritis with hemorrhage. Biopsied. - Oozing gastric ulcers with pigmented material. Injected. Treated with a heater probe. - No gross lesions in the second portion of the duodenum. Recommendation: - Return patient to [facility] for [facility] care. - Full liquid diet. - Continue present medications. Procedure Code(s): --- Professional --- 26538, 59, Esophagogastroduodenoscopy, flexible, transoral; with control of bleeding, any method 17562, 59, Esophagogastroduodenoscopy, flexible, transoral; with directed submucosal injection(s), any substance 94493, 51, Esophagogastroduodenoscopy, flexible, transoral; with biopsy, single or multiple CPT copyright 2017 [employer]. All rights reserved. The codes documented in this report are preliminary and upon behavioral health therapist review may be revised to meet current compliance requirements. Vaibhav Petty DO 02/11/2023 4:32:42 PM This report has been signed electronically. Number of Addenda: 0 Note Initiated On: 02/11/2023 4:11 PM
--- NOTE | 2023-02-11 16:33 | OP.CCLET_ITS ---
02/11/2023 Atilio Jimenez Re : Upper GI endoscopy procedure for Humza Guevara Barbara This procedure was performed on Saturday, February 11, 2023. 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 - Medium-sized hiatal hernia. - Bile gastritis with hemorrhage. Biopsied. - Oozing gastric ulcers with pigmented material. Injected. Treated with a heater probe. - No gross lesions in the second portion of the duodenum. Recommendations : - Return patient to [facility] for [facility] care. - Full liquid diet. - Continue present medications. My findings are described in the full procedure note, which is enclosed. If I can be of further assistance, please feel free to contact me at . Sincerely, Vaibhav Petty, 02/11/2023 4:32:42 PM This report has been signed electronically.
[2023-02-11 18:58] LABS: Protein, Urine (Random) 25.4 mg/dL (<11.9); Protein:Creat Ratio 1380 mg/g CRE (0-200)
[2023-02-11] MEDS: Budesonide Respules 0.5 MG/2 ML AMPUL.NEB. INHALATION (19:54)
[2023-02-11 21:17] LABS: Hematocrit 22.9 % (40-54); Hemoglobin 7.3 g/dL (13.0-16.5)
[2023-02-11] MEDS: Ceftriaxone 1 GM/50 ML BAG IV (22:15)
[2023-02-11] MEDS: Atorvastatin Calcium 10 MG Tablet PO (22:15)
[2023-02-11] MEDS: Doxazosin 4 MG Tablet PO (22:15)
[2023-02-12] VITALS (12 sets, daily range): BP systolic 124–140; BP diastolic 42–61; PULSE 50–72; RESP 16–20; TEMP 36.7–36.9; O2SAT 95–100; BMI 29.8
[2023-02-12 06:14] LABS: Absolute Lymphocyte Count 0.68 X10^3/uL (0.83-4.51); Absolute Neutrophil Count 5.5 X10^3/uL (2.0-7.7); Basophil# 0.01 X10^3/uL; Basophil% 0.1 % (0-1); Eosinophil# 0.02 X10^3/uL; Eosinophils% 0.3 % (0-5); Hematocrit 23.2 % (40-54); Hemoglobin 7.2 g/dL (13.0-16.5); Lymphocyte # 0.68 X10^3/ul (0.83-4.51); Lymphocyte % 10.1 % (19-41); Mean Corpuscular Hgb 26.5 pg (27.0-32.0); Mean Corpuscular Volume 85.3 fL (80-94); Mean Platelet Vol. 12.2 fl (6.2-12.0); Monocyte# 0.48 X10^3/uL; Monocyte% 7.1 % (0-10); NRBC Flagged by Analyzer 0 % (0-5); Neutrophil % 81.8 % (47-70); Platelet Count 113 K/mm3 (150-450); RBC Distribution Width CV 16.1 % (11.6-14.6); RBC Distribution Width SD 50.1 fl (35.1-43.9); Red Blood Count 2.72 M/mm3 (4.6-6.2); White Blood Count 6.7 K/mm3 (4.4-11.0)
[2023-02-12 06:49] LABS: BUN 66 mg/dL (7-18); BUN/Creat Ratio 29.7 RATIO (10-20); Calcium,Total 8.3 mg/dL (8.5-10.1); Chloride 110 mmol/L (98-107); Creatinine, Serum 2.22 mg/dL (0.70-1.30); EST Glomerular Filtration Rate 30 mL/min (>60); Est Glom Filt Rate - Afr Amer 36 mL/min (>60); Estimated Creatinine Clearance 21.15 ml/min; Glucose 157 mg/dL (74-106); Magnesium 2.2 mg/dL (1.6-2.6); Phosphorus 3.9 mg/dL (2.5-4.9); Potassium 3.2 mmol/L (3.5-5.1); Sodium Level 142 mmol/L (136-145)
[2023-02-12] MEDS: Budesonide Respules 0.5 MG/2 ML AMPUL.NEB. INHALATION ×2 (07:18→19:25)
--- NOTE | 2023-02-12 09:11 | PN.RENAL_ITS ---
Subjective Subjective Resting quietly in bed. No overnight events. Denies any complaints. States noticing edema to legs has improved. Objective Data Objective Data Vital Signs: Vital Signs Temp Pulse Resp BP Pulse Ox O2 Del Method 97.8 F 72 20 H 121/51 H 95 Room Air 02/11/23 22:58 02/12/23 07:45 02/12/23 07:45 02/11/23 22:58 02/12/23 08:02 02/12/23 08:02 Oxygen Delivery Method Room Air Weight: 83.8 kg Body Mass Index (BMI) 29.8 Intake & Output: Intake and Output for Last 24 Hours 02/10/23 02/11/23 02/12/23 23:59 23:59 23:59 Intake Total 110 / 310 640 / 640 Output Total 1300 / 1300 Balance 110 / 60 -660 / -660 Lab / Micro Data Result Diagrams: 02/12/23 04:55 02/12/23 04:55 Labs: Laboratory Results - last 24 hr 02/11/23 04:02: Hemoglobin A1c < 3.8 L 02/11/23 12:45: U Random Total Protein 25.4 H, Urine Creatinine 18.40, Protein/Creatinin Ratio 1380 H 02/11/23 14:25: PT 22.2 H, INR 1.9 02/11/23 21:00: Hgb 7.3 L, Hct 22.9 L 02/12/23 04:55: Sodium 142, Potassium 3.2 L, Chloride 110 H, Carbon Dioxide 23.0, BUN 66 H, Creatinine 2.22 H, Estim Creat Clear Calc 21.15, Est GFR (MDRD) Af Amer 36 L, Est GFR (MDRD) Non-Af 30 L, BUN/Creatinine Ratio 29.7 H, Glucose 157 H, Calcium 8.3 L, Phosphorus 3.9, Magnesium 2.2, Albumin 2.0 L 02/12/23 04:55: WBC 6.7, RBC 2.72 L, Hgb 7.2 L, Hct 23.2 L, MCV 85.3, MCH 26.5 L , MCHC 31.0 L, RDW Std Deviation 50.1 H, RDW Coeff of [place] 16.1 H, Plt Count 113 L, MPV 12.2 H, Immature Gran % (Auto) 0.600, Neut % (Auto) 81.8 H, Lymph % (Auto) 10.1 L, [place] % (Auto) 7.1, Eos % (Auto) 0.3, Baso % (Auto) 0.1, Absolute Neuts (auto) 5.5, Absolute Lymphs (auto) 0.68 L, Nucleated RBC % 0 Micro: Microbiology 02/10/23 16:43 Stool Stool Occult Blood (CLEVE) - Final Occult Blood Positive Radiography Diagnostic Testing: Radiology Impression Echocardiogram 02/10/23 21:03 Interpretation Summary The estimated ejection fraction is 55-60 %. Severe biatrial enlargement. Moderately severe +3 eccentric tricuspid valve insufficiency. Mild to moderate MR Severe pulm hypertension RV systolic pressure measuring 106 mmHg worsening from previous echocardiogram in April 16/2022 RV systolic pressure was 78 mmHg Ordering Physician: Bel Dennis Performed By: Renal Ultrasound 02/11/23 05:55 IMPRESSION: 1. Unremarkable left renal cyst. This requires no further follow-up. The kidneys are otherwise unremarkable. 2. A mildly trabeculated bladder wall without other evidence of urinary bladder abnormality. Electronically Signed: Bennie Chaparro DO at 18:58 EDT , Venous Doppler Study 02/11/23 11:04 Interpretation Summary Deep veins of the bilateral lower extremities are patent and compressible segmentally. There is no evidence of bilateral lower extremity deep vein thrombosis. The bilateral great saphenous veins appear patent and compressible segmentally. Ordering Physician: Ryan Cowart Referring Physician: Atilio Jimenez Performed By: Alicia Aranda, YESSY, RVT Physical Exam Narrative Alert and oriented x3, no apparent distress S1, S2, RRR Lung sounds clear anteriorly and posteriorly. No wheezes, rhonchi or rales noted. On room air Abdomen soft, nondistended, positive bowel sounds 3+ pitting edema noted bilateral lower legs with right greater than worse. Reji wrap intact to both legs. Edema noted to bilateral thighs, right greater than left Assessment & Plan Assessment/Plan (1) Renal insufficiency: (2) Dyspnea: (3) Hypertension: PLAN: Plan This is an 87-year-old male with past medical history significant for hypertension, A-fib, alcohol use, severe pulmonary hypertension and diastolic heart failure who presented to the emergency room with complaints of shortness of breath and worsening lower extremity edema admitted for further evaluation and treatment. Nephrology consulted as patient noted to have a creatinine of 2.45 mg/dL yesterday; concern for cardiorenal syndrome physiology versus hepatorenal syndrome physiology. -Nonoliguric, hypervolemic RODRÍGUEZ on CKD; serum creatinine 2.45 mg/dL on admission, yesterday his creatinine 2.20 and today creatinine 2.22 mg/dL. We were able to obtain labs from PCP: October 30, 2022 serum creatinine 1.47 mg/dL. 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 Fluctuating SCr levels given history of diastolic heart failure and severe pulmonary hypertension, may need to keep serum creatinine levels on higher side to keep patient volume compensated. Renal ultrasound did not show any hydronephrosis. UA showed 30 of protein, occult blood 250, no RBC. Patient had abdominal ultrasound which showed mild ascites, cholelithiasis and questionable cirrhosis; no right hydronephrosis. UPC 1380mg/g. No acute indication for IMAGING SCIENCE PROFESSOR, continue diuretics as ordered by cardiology. Will arrange for hospital follow-up. - hypokalemia from diuresis; supplement ordered. -History of severe pulmonary hypertension and diastolic heart failure; card iology following. On Lasix 40 mg IV twice daily. Home diuretic per patient lasix 40mg daily and sometimes bid depending upon edema. Weight down about 2 kg. 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 Venous Doppler of both legs negative for evidence of DVT. Repeat echo: EF 55 to 60%, severe biatrial enlargement, moderately severe tricuspid valve insufficiency, severe pulmonary hypertension, mild to moderate MR - Blood pressures were acceptable on admission and have been acceptable during hospitalization, patient is on Cardura, furosemide, metoprolol tartrate and hydralazine. - Patient noted to be anemic, hemoglobin 7 with positive stool guaiac, he is on PPI drip and GI following, patient had EGD yesterday: Bile gastritis with hemorrhage, biopsies, mucosal changes suspicious for Wakefield's esophagus.
[2023-02-12] MEDS: Metoprolol Tartrate 25 MG Tablet 12.5 MG PO ×2 (09:31→21:50)
[2023-02-12] MEDS: 0.9% Saline Lock 10 ML Syringe IV ×3 (09:32→21:52)
[2023-02-12] MEDS: Furosemide 40 MG/4 ML Vial IV ×2 (09:32→18:27)
[2023-02-12] MEDS: Potassium Chloride Oral Tablet 20 MEQ 40 MEQ PO (09:32)
[2023-02-12] MEDS: hydrALAZINE 10 MG Tablet 20 MG PO ×3 (09:32→18:27)
[2023-02-12] MEDS: Finasteride 5 MG Tablet PO (09:32)
[2023-02-12 10:05] LABS: Pathologist Review Reviewed
--- NOTE | 2023-02-12 11:19 | WOUNDNOTE ---
In to reassess bilateral lower legs. there is still a moderate amount of serous drainage from the right lower leg. no open areas noted. applied dry dressings and wrapped with kerlix. reapplied the CHANTEL wraps. pt tolerated well.
--- NOTE | 2023-02-12 16:48 | PN.HOSP_ITS ---
Reason for Visit Reason for Visit: Diagnoses Essential (primary) hypertension (02/10/23) Non-ST elevation (NSTEMI) myocardial infarction (02/10/23) Pulmonary hypertension, unspecified (02/10/23) Acute on chronic diastolic (congestive) heart failure (02/10/23) Heart failure, unspecified (02/10/23) Gastrointestinal hemorrhage, unspecified (02/10/23) Disorder of kidney and ureter, unspecified (02/10/23) Dyspnea, unspecified (02/10/23) Subjective Subjective Follow-up for acute on chronic diastolic heart failure, severe anemia, GI bleed. Cirrhosis and kidney failure. Objective Data Objective Data Vital Signs: Vital Signs Temp Pulse Resp BP Pulse Ox O2 Del Method 98.3 F 54 L 16 124/44 H 98 Room Air 02/12/23 11:45 02/12/23 11:49 02/12/23 11:45 02/12/23 11:49 02/12/23 11:45 02/12/23 16:02 Oxygen Delivery Method Room Air Weight: 184 lb 11.958 oz Body Mass Index (BMI) 29.8 Intake & Output: Intake and Output for Last 24 Hours 02/10/23 02/11/23 02/12/23 23:59 23:59 23:59 Intake Total 110 / 310 640 / 640 160 / 160 Output Total 1300 / 1300 525 / 525 Balance 110 / 60 -660 / -660 -365 / -365 Lab / Micro Data Result Diagrams: 02/12/23 04:55 02/12/23 04:55 Labs: Laboratory Results - last 24 hr 02/11/23 04:02: Diff Path Review Reviewed 02/11/23 12:45: U Random Total Protein 25.4 H, Urine Creatinine 18.40, Protein/Creatinin Ratio 1380 H 02/11/23 21:00: Hgb 7.3 L, Hct 22.9 L 02/12/23 04:55: Sodium 142, Potassium 3.2 L, Chloride 110 H, Carbon Dioxide 23.0, BUN 66 H, Creatinine 2.22 H, Estim Creat Clear Calc 21.15, Est GFR (MDRD) Af Amer 36 L, Est GFR (MDRD) Non-Af 30 L, BUN/Creatinine Ratio 29.7 H, Glucose 157 H, Calcium 8.3 L, Phosphorus 3.9, Magnesium 2.2, Albumin 2.0 L 02/12/23 04:55: WBC 6.7, RBC 2.72 L, Hgb 7.2 L, Hct 23.2 L, MCV 85.3, MCH 26.5 L , MCHC 31.0 L, RDW Std Deviation 50.1 H, RDW Coeff of [place] 16.1 H, Plt Count 113 L, MPV 12.2 H, Immature Gran % (Auto) 0.600, Neut % (Auto) 81.8 H, Lymph % (Auto) 10.1 L, [place] % (Auto) 7.1, Eos % (Auto) 0.3, Baso % (Auto) 0.1, Absolute Neuts (auto) 5.5, Absolute Lymphs (auto) 0.68 L, Nucleated RBC % 0 Micro: Microbiology 02/10/23 16:43 Stool Stool Occult Blood (CLEVE) - Final Occult Blood Positive Radiography Diagnostic Testing: Radiology Impression Renal Ultrasound 02/11/23 05:55 IMPRESSION: 1. Unremarkable left renal cyst. This requires no further follow-up. The kidneys are otherwise unremarkable. 2. A mildly trabeculated bladder wall without other evidence of urinary bladder abnormality. Electronically Signed: Bennie DO Krysta at 18:58 EDT Reading Location ID and State: [address] [place] [address] Tel [phone], Service support , Physical Exam Narrative Seen and examined. Lower extremity edema is better. Shortness of breath also improving. Denies dyspnea at rest. No chest pain or pressure. Chronic seepage of fluid/transudate from both legs right more than left. Physical exam General: Alert, Oriented x3, Cooperative, BMI 29.2 kg/m? HEENT: Atraumatic, PERRLA, EOMI, Normocephalic Oral: No Gingival or Mucosal Lesions/ Ulcerations Neck: Supple, No JVD, Negative Carotid Bruits Lungs: Air entry diminished in bilateral lung bases. No crepitation/rhonchi Cardiovascular: Regular rate, Regular Rhythm, Normal S1, Normal S2, No murmurs Abdomen: Bowel Sounds Present, Soft, Non Tender, Non-Distended : No renal angle tenderness. No suprapubic tenderness. Extremities: 3+ leg edema above the knee. Reji wrap bandage., Capillary Refill Less than 3 Seconds Skin: Multiple superficial ulcer with seepage of fluid. Musculoskeletal: Mild tenderness of right anterolateral thigh with induration. ROM restricted. Mobility/ambulation on assistive device for last 3 weeks. Neurological: Cranial nerves II-XII grossly intact, DTR 2+/4 and Symmetrical, Neuro grossly intact Psych/Mental Status: Flat affect. Assessment & Plan Assessment/Plan (1) CHF exacerbation: (2) GI bleed: (3) NSTEMI, initial episode of care: PLAN: Plan The patient is an 87 y/o M Was admitted to ER for dyspnea on exertion and lower extremity edema large for last 4 days. Patient did not had chest discomfort. No fever chills cough or URI symptoms. #1. Acute Decompensated Presumed Diastolic CHF with moderate severe valvular heart disease elevated cardiac enzymes as noted #3: PCU. Patient had IV Lasix in ED and continued on it. ECHO noted 04/16/2022 with normal LV systolic function, EF 60%, LA severely enlarged, RA moderately enlarged, mild to moderate MVI, moderately severe TVI, trivial NILSON, mild PVI, RVSP 78 mmHg with evidence severe pulmonary hypertension Heart failure core measures including intake and output, fluid restriction less than 1500 mL, daily weight monitoring, kidney and electrolytes monitoring. Patient not on REJI/ARB due to possible RODRÍGUEZ. Low dose beta-jodie with holding parameters. Lipid profile shows LDL 18, HDL 24. TSH normal. Serum magnesium and phosphorus normal. On high intensity statin. #2. Anemia, acute on chronic suspected due to GI bleed with complication of chronic anticoagulant therapy and Cirrhotic disease w/ Prior EtOH Abuse history: Admission hemoglobin 7.9, MCV 86.8 with no clear prior baseline even in clinic sink system. Between 7 to 7.9 g gradually decreasing. Patient has history of cirrhosis and anticoagulant treatment. Guaiac positive. Supervisor Farm Equipment Maintenance consulted. 02/11 patient n.p.o. for possible EGD. 02/12: Patient had EGD reported esophageal mucosal changes suspicious for Wakefield's esophagus. Medium sized hiatus hernia. Bile gastritis with hemorrhage, biopsied. Oozing gastric ulcers with pigmented material. No gross lesion in D2. #3. Acute myocardial injury probably non-STEMI type II from demand ischemia from heart failure exacerbation/valvular heart disease, severe pulmonary hypertension: EKG in ED w/ SR without acute evidence of ischemia, chest x-ray with mild degree of CHF with a small right pleural effusion and right basilar atelectasis as well as cardiomegaly, Trop elevated 277, 311, 307 and 304 flat and plateau. Aviation Survival Technician consulted. Echo is requested. At this time, patient not candidate for antiplatelet/anticoagulant due to given active GI bleed. Rest as mentioned above. 02/12: Patient was evaluated by automobile accessories installer and felt same non-STEMI type II probably due to demand ischemia secondary to anemia. Does not have anginal symptoms. 2D echo done reported EF 55 to 60%, severe biatrial enlargement, moderately severe 3+ eccentric TR, mild to moderate MR and severe pulmonary hypertension with RVSP 106 mmHg worsened from 78 mmHg of March 2022. #4. Suspected RODRÍGUEZ although unclear if underlying CKD unclear stage : Admission BUN/creatinine 62/2.45, suspected acute with elevated BUN probably from GI bleed. On IV diuretic because of hypervolemia physiology. 02/11: Mild improvement in creatinine 2.2. BUN 61. UA reviewed SG normal. Mild proteinuria. LE 500, RBC 0-5 WBCs 10-25 cells, bacteria 3+. Urine sodium 89. Based on IV ceftriaxone that will cover possible UTI or concern of RODRÍGUEZ from HRS. Protein creatinine ratio. 02/12: Creatinine 2.2. Mild hypokalemia. Potassium replaced. Being followed by snailer. Renal ultrasound shows simple cyst does not need to be followed. Mildly it regulated urinary bladder without other evidence of bladder abnormality #5. Hyperglycemia: Admission glucose 160, no prior diabetic history reported, will obtain hemoglobin A1c and if appropriate obtain nutrition consultation for education and teaching, ADA diet once clinically appropriate and Accu-Cheks with insulin sliding scale. 02/12: Glucoses controlled. A1c less than 3.8% reported low. Diabetes mellitus or prediabetes ruled out. #6. Thrombocytopenia, unclear if acute or chronic: Admission platelet 117, given anemia as well temporally holding anticoagulation pending further work-up as noted, will trend CBC #7. Chronic Asthma: Will maintain on oxygen with wean as tolerated to room air, will temporally hold home inhaler in the interim transition to ATC budesonide therapy, PRN albuterol, HOB, IS parameters. #8. PAF: Not on rate or rhythm agent per review of current list but clarifying, on chronic Pradaxa regimen, temporarily holding given anemia noted and unclear baseline. #9. Hypertension: Continue home regimen including hydralazine, IV Lasix as noted, not on beta-jodie or REJI inhibitor however clarifying list, PRN hydralazine. #10. Hyperlipidemia: Continue home statin regimen. AM FLP. #11. BPH: We will continue patient home finasteride and doxazosin home regimen. #12. GERD: We will maintain on IV PPI pending further work-up given anemia and unclear baseline hemoglobin level. #13. DVT prophylaxis: SCDs, holding Pradaxa given #2 is noted. #14. CODE status: Patient HCPOA and living will is not in place however he notes his would be his decision maker if this was necessary. Discussed CODE status at length including difference between FULL code, DNR-CCA and DNR-CC status. Following discussions about the differences in these status, requested Full Code status. Charges/Coding Visit Charges Inpatient E&M: 62763 Subs Hosp L3
--- NOTE | 2023-02-12 19:35 | PN_ITS ---
Subjective Subjective Patient is not having any complaints at this time. He is not showing any signs of bleeding. He is not confused. Objective Data Objective Data Vital Signs: Vital Signs Temp Pulse Resp BP Pulse Ox O2 Del Method 98.0 F 64 16 132/42 H 100 Room Air 02/12/23 17:45 02/12/23 18:27 02/12/23 17:45 02/12/23 18:27 02/12/23 17:45 02/12/23 17:45 Oxygen Delivery Method Room Air Weight: 184 lb 11.958 oz Body Mass Index (BMI) 29.8 Intake & Output: Intake and Output for Last 24 Hours 02/10/23 02/11/23 02/12/23 23:59 23:59 23:59 Intake Total 110 / 310 640 / 640 160 / 160 Output Total 1300 / 1300 950 / 950 Balance 110 / 60 -660 / -660 -790 / -790 Lab / Micro Data Result Diagrams: 02/12/23 04:55 02/12/23 04:55 Labs: Laboratory Results - last 24 hr 02/11/23 04:02: Diff Path Review Reviewed 02/11/23 21:00: Hgb 7.3 L, Hct 22.9 L 02/12/23 04:55: Sodium 142, Potassium 3.2 L, Chloride 110 H, Carbon Dioxide 23.0, BUN 66 H, Creatinine 2.22 H, Estim Creat Clear Calc 21.15, Est GFR (MDRD) Af Amer 36 L, Est GFR (MDRD) Non-Af 30 L, BUN/Creatinine Ratio 29.7 H, Glucose 157 H, Calcium 8.3 L, Phosphorus 3.9, Magnesium 2.2, Albumin 2.0 L 02/12/23 04:55: WBC 6.7, RBC 2.72 L, Hgb 7.2 L, Hct 23.2 L, MCV 85.3, MCH 26.5 L , MCHC 31.0 L, RDW Std Deviation 50.1 H, RDW Coeff of [place] 16.1 H, Plt Count 113 L, MPV 12.2 H, Immature Gran % (Auto) 0.600, Neut % (Auto) 81.8 H, Lymph % (Auto) 10.1 L, [place] % (Auto) 7.1, Eos % (Auto) 0.3, Baso % (Auto) 0.1, Absolute Neuts (auto) 5.5, Absolute Lymphs (auto) 0.68 L, Nucleated RBC % 0 Micro: Microbiology 02/10/23 16:43 Stool Stool Occult Blood (CLEVE) - Final Occult Blood Positive Physical Exam Narrative Seen and examined. Lower extremity edema is better. Shortness of breath also improving. Denies dyspnea at rest. No chest pain or pressure. Chronic seepage of fluid/transudate from both legs right more than left. Physical exam General: Alert, Oriented x3, Cooperative, BMI 29.2 kg/m? HEENT: Atraumatic, PERRLA, EOMI, Normocephalic Oral: No Gingival or Mucosal Lesions/ Ulcerations Neck: Supple, No JVD, Negative Carotid Bruits Lungs: Air entry diminished in bilateral lung bases. No crepitation/rhonchi Cardiovascular: Regular rate, Regular Rhythm, Normal S1, Normal S2, No murmurs Abdomen: Bowel Sounds Present, Soft, Non Tender, Non-Distended : No renal angle tenderness. No suprapubic tenderness. Extremities: 3+ leg edema above the knee. Reji wrap bandage., Capillary Refill Less than 3 Seconds Skin: Multiple superficial ulcer with seepage of fluid. Musculoskeletal: Mild tenderness of right anterolateral thigh with induration. ROM restricted. Mobility/ambulation on assistive device for last 3 weeks. Neurological: Cranial nerves II-XII grossly intact, DTR 2+/4 and Symmetrical, Neuro grossly intact Psych/Mental Status: Flat affect. Assessment & Plan Assessment/Plan (1) CHF exacerbation: (2) GI bleed: (3) NSTEMI, initial episode of care: PLAN: Plan The patient is an 87 y/o M w/ PMHx: PAF, HTN, HLD, COPD, BPH, GERD, Diastolic CHF who presents to the [facility] ED on 02/10/23 with history of increasing dyspnea, worse with exertion with lower extremity increased edema discovered to have anemia, thrombocytopenia and imaging consistent with cirrhosis. Cirrhosis- Differential diagnosis would be alcoholic cirrhosis versus Jaramillo cirrhosis. We will perform biochemical work-up and we also will screen him for varices to see if that is the etiology why he has a GI blood loss anemia. If her upper scope is negative then he would likely need a colonoscopy for further evaluation and possible capsule endoscopy. He is already on medical therapy for CHF which also incorporates prophylaxis for varices. Recommend ceftriaxone 1 g IV daily, Protonix drip and octreotide drip. Anemia - Admission hemoglobin 7.9, MCV 86.8 with no clear prior baseline even in clinic sink system. To be cautious we will temporally hold Pradaxa home regimen, obtain serial H+H, obtain T+S w/ cross for PRBC administration if appropriate, maintain on IV PPI, will request gastroenterology involvement, raquel hidalgo until midnight with n.p.o. status following. Deferring any IV fluids given #1. Given patient gallbladder ultrasound with noted mild ascites with questionable cirrhotic disease we will place also on IV Rocephin to be cautious. Thrombocytopenia, unclear if acute or chronic: Admission platelet 117, given anemia as well temporally holding anticoagulation pending further work-up as noted, will trend CBC 02/12- egd - There was no esophageal, gastric or duodenal varices. There was some portal gastropathy and there was bleeding in the stomach. His hemoglobin seems to be stable.Platelet count seems to be stable. He is auto anticoagulated due to cirrhosis. There is no gross ascites. His INR is 1.9. He needs an AFP (HCC screening) and Ammonia. Charges/Coding Visit Charges Inpatient E&M: 66418 Subs Hosp L3
--- NOTE | 2023-02-12 20:37 | NURSING ---
1953 This nurse took over patient care
[2023-02-12] MEDS: Atorvastatin Calcium 10 MG Tablet PO (21:49)
[2023-02-12] MEDS: Doxazosin 4 MG Tablet PO (21:49)
[2023-02-12] MEDS: Ceftriaxone 1 GM/50 ML BAG IV (23:26)
[2023-02-13] VITALS (12 sets, daily range): BP systolic 123–136; BP diastolic 49–99; PULSE 60–93; RESP 16–20; TEMP 36.4–36.9; O2SAT 93–100; BMI 29.9
[2023-02-13 06:20] LABS: Absolute Lymphocyte Count 0.69 X10^3/uL (0.83-4.51); Absolute Neutrophil Count 5.4 X10^3/uL (2.0-7.7); Eosinophil# 0.06 X10^3/uL; Eosinophils% 0.9 % (0-5); Hematocrit 23.4 % (40-54); Hemoglobin 7.2 g/dL (13.0-16.5); Lymphocyte # 0.69 X10^3/ul (0.83-4.51); Lymphocyte % 10.4 % (19-41); Mean Corp Hgb Conc 30.8 g/dL (32-36); Mean Corpuscular Hgb 26.1 pg (27.0-32.0); Mean Corpuscular Volume 84.8 fL (80-94); Mean Platelet Vol. 12.2 fl (6.2-12.0); Monocyte% 6.1 % (0-10); NRBC Flagged by Analyzer 0 % (0-5); Neutrophil # 5.37 X10^3/uL (2.7-7.7); Neutrophil % 81.2 % (47-70); Platelet Count 124 K/mm3 (150-450); RBC Distribution Width CV 16.1 % (11.6-14.6); RBC Distribution Width SD 50.3 fl (35.1-43.9); Red Blood Count 2.76 M/mm3 (4.6-6.2); White Blood Count 6.6 K/mm3 (4.4-11.0)
[2023-02-13 06:39] LABS: BUN 70 mg/dL (7-18); BUN/Creat Ratio 34.8 RATIO (10-20); Calcium,Total 8.5 mg/dL (8.5-10.1); Chloride 109 mmol/L (98-107); Creatinine, Serum 2.01 mg/dL (0.70-1.30); EST Glomerular Filtration Rate 34 mL/min (>60); Est Glom Filt Rate - Afr Amer 41 mL/min (>60); Estimated Creatinine Clearance 23.37 ml/min; Glucose 109 mg/dL (74-106); Phosphorus 4.1 mg/dL (2.5-4.9); Potassium 3.2 mmol/L (3.5-5.1); Sodium Level 143 mmol/L (136-145)
[2023-02-13] MEDS: Budesonide Respules 0.5 MG/2 ML AMPUL.NEB. INHALATION ×2 (07:57→19:41)
--- NOTE | 2023-02-13 08:41 | PN.RENAL_ITS ---
Subjective Subjective Resting in bed. No overnight events. Patient reports he is feeling good today and again noticing edema improving to lower legs. Objective Data Objective Data Vital Signs: Vital Signs Temp Pulse Resp BP Pulse Ox O2 Del Method 98.4 F 93 16 123/49 H 93 Room Air 02/13/23 06:07 02/13/23 07:57 02/13/23 07:57 02/13/23 06:07 02/13/23 07:57 02/13/23 07:57 Oxygen Delivery Method Room Air Weight: 84.2 kg Body Mass Index (BMI) 29.9 Intake & Output: Intake and Output for Last 24 Hours 02/11/23 02/12/23 02/13/23 23:59 23:59 23:59 Intake Total 640 / 640 320 / 320 Output Total 1300 / 1300 1600 / 1600 600 / 600 Balance -660 / -660 -1280 / -1280 -600 / -600 Lab / Micro Data Result Diagrams: 02/13/23 05:25 02/13/23 05:25 Labs: Laboratory Results - last 24 hr 02/11/23 04:02: Diff Path Review Reviewed 02/13/23 05:25: WBC 6.6, RBC 2.76 L, Hgb 7.2 L, Hct 23.4 L, MCV 84.8, MCH 26.1 L , MCHC 30.8 L, RDW Std Deviation 50.3 H, RDW Coeff of [place] 16.1 H, Plt Count 124 L, MPV 12.2 H, Immature Gran % (Auto) 1.400 H, Neut % (Auto) 81.2 H, Lymph % (Auto) 10.4 L, [place] % (Auto) 6.1, Eos % (Auto) 0.9, Baso % (Auto) 0.0, Absolute Neuts (auto) 5.4, Absolute Lymphs (auto) 0.69 L, Nucleated RBC % 0 02/13/23 05:25: Sodium 143, Potassium 3.2 L, Chloride 109 H, Carbon Dioxide 27.0, BUN 70 H, Creatinine 2.01 H, Estim Creat Clear Calc 23.37, Est GFR (MDRD) Af Amer 41 L, Est GFR (MDRD) Non-Af 34 L, BUN/Creatinine Ratio 34.8 H, Glucose 109 H, Calcium 8.5, Phosphorus 4.1, Albumin 2.0 L Micro: Microbiology 02/10/23 16:43 Stool Stool Occult Blood (CLEVE) - Final Occult Blood Positive Physical Exam Narrative Alert and oriented x3, no apparent distress S1, S2, RRR Lung sounds clear anteriorly and posteriorly. No wheezes, rhonchi or rales noted. On room air Abdomen soft, nondistended, positive bowel sounds 2-3+ pitting edema noted bilateral lower legs with right greater than left. Reji wrap intact to both legs. Developing wrinkles to bilateral feet/toes. Assessment & Plan Assessment/Plan (1) Renal insufficiency: (2) Dyspnea: (3) Hypertension: PLAN: Plan This is an 87-year-old male with past medical history significant for hypertension, A-fib, alcohol use, severe pulmonary hypertension and diastolic heart failure who presented to the emergency room with complaints of shortness of breath and worsening lower extremity edema admitted for further evaluation and treatment. Nephrology consulted as patient noted to have a creatinine of 2.45 mg/dL yesterday; concern for cardiorenal syndrome physiology versus hepatorenal syndrome physiology. -Nonoliguric, hypervolemic RODRÍGUEZ on CKD; serum creatinine 2.45 mg/dL on admission, yesterday creatinine 2.22 mg/dL--> today SCr 2.01 mg/dL. Obtained labs from PCP: October 30, 2022 serum creatinine 1.47 mg/dL. 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 Fluctuating SCr levels given history of diastolic heart failure and severe pulmonary hypertension, may need to keep serum creatinine levels on higher side to keep patient volume compensated. Renal ultrasound did not show any hydronephrosis. UA showed 30 of protein, occult blood 250, no RBC. Patient had abdominal ultrasound which showed mild ascites, cholelithiasis and questionable cirrhosis; no right hydronephrosis. UPC 1380mg/g. No acute indication for ELECTRICIAN TECHNICIAN, renal function remaining stable with IV diuresis and continue diuretics as ordered by cardiology. Will arrange for hospital follow- up. - hypokalemia from diuresis; replacement ordered daily and another dose for this afternoon. -History of severe pulmonary hypertension and diastolic heart failure; cardiology following. On Lasix 40 mg IV twice daily. Home diuretic per patient lasix 40mg daily and sometimes bid depending upon edema. Net negative ~2.5L. Continue FR. 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 Venous Doppler of both legs negative for evidence of DVT. Repeat echo: EF 55 to 60%, severe biatrial enlargement, moderately severe tricuspid valve insufficiency, severe pulmonary hypertension, mild to moderate MR - Blood pressures were acceptable on admission and have been acceptable during hospitalization, patient is on Cardura, furosemide, metoprolol tartrate and hydralazine. -Thrombocytopenia/anemia, work-up per GI. hemoglobin low 7 with positive stool guaiac, he is on PPI drip. Patient had EGD: Bile gastritis with hemorrhage, biopsies, mucosal changes suspicious for Wakefield's esophagus; no varices.
--- NOTE | 2023-02-13 08:41 | PCM.PN.HOSP ---
Reason for Visit Reason for Visit: Diagnoses Essential (primary) hypertension (02/10/23) Non-ST elevation (NSTEMI) myocardial infarction (02/10/23) Pulmonary hypertension, unspecified (02/10/23) Acute on chronic diastolic (congestive) heart failure (02/10/23) Heart failure, unspecified (02/10/23) Gastrointestinal hemorrhage, unspecified (02/10/23) Disorder of kidney and ureter, unspecified (02/10/23) Dyspnea, unspecified (02/10/23) Subjective Subjective Patient shortness of breath better. Still has right leg posterior thigh mild pain. Objective Data Objective Data Vital Signs: Vital Signs Temp Pulse Resp BP Pulse Ox O2 Del Method 98.4 F 93 16 123/49 H 93 Room Air 02/13/23 06:07 02/13/23 07:57 02/13/23 07:57 02/13/23 06:07 02/13/23 07:57 02/13/23 07:57 Oxygen Delivery Method Room Air Weight: 185 lb 10.067 oz Body Mass Index (BMI) 29.9 Intake & Output: Intake and Output for Last 24 Hours 02/11/23 02/12/23 02/13/23 23:59 23:59 23:59 Intake Total 640 / 640 320 / 320 Output Total 1300 / 1300 1600 / 1600 600 / 600 Balance -660 / -660 -1280 / -1280 -600 / -600 Lab / Micro Data Result Diagrams: 02/13/23 05:25 02/13/23 05:25 Labs: Laboratory Results - last 24 hr 02/11/23 04:02: Diff Path Review Reviewed 02/13/23 05:25: WBC 6.6, RBC 2.76 L, Hgb 7.2 L, Hct 23.4 L, MCV 84.8, MCH 26.1 L, MCHC 30.8 L, RDW Std Deviation 50.3 H, RDW Coeff of [place] 16.1 H, Plt Count 124 L, MPV 12.2 H, Immature Gran % (Auto) 1.400 H, Neut % (Auto) 81.2 H, Lymph % (Auto) 10.4 L, [place] % (Auto) 6.1, Eos % (Auto) 0.9, Baso % (Auto) 0.0, Absolute Neuts (auto) 5.4, Absolute Lymphs (auto) 0.69 L, Nucleated RBC % 0 02/13/23 05:25: Sodium 143, Potassium 3.2 L, Chloride 109 H, Carbon Dioxide 27.0, BUN 70 H, Creatinine 2.01 H, Estim Creat Clear Calc 23.37, Est GFR (MDRD) Af Amer 41 L, Est GFR (MDRD) Non-Af 34 L, BUN/Creatinine Ratio 34.8 H, Glucose 109 H, Calcium 8.5, Phosphorus 4.1, Albumin 2.0 L Micro: Microbiology 02/10/23 16:43 Stool Stool Occult Blood (CLEVE) - Final Occult Blood Positive Physical Exam Narrative Seen and examined. Lower extremity edema is better right posterior thigh pain. Shortness of breath also improving. Denies dyspnea at rest. No chest pain or pressure. Chronic seepage of fluid/transudate from both legs right more than left. Physical exam General: Alert, Oriented x3, Cooperative, BMI 29.2 kg/m? HEENT: Atraumatic, PERRLA, EOMI, Normocephalic Oral: No Gingival or Mucosal Lesions/ Ulcerations Neck: Supple, No JVD, Negative Carotid Bruits Lungs: Air entry diminished in bilateral lung bases. No crepitation/rhonchi Cardiovascular: Regular rate, Regular Rhythm, Normal S1, Normal S2, No murmurs Abdomen: Bowel Sounds Present, Soft, Non Tender, Non-Distended : No renal angle tenderness. No suprapubic tenderness. Extremities: 2+ leg edema above the knee. Reji wrap bandage., Capillary Refill Less than 3 Seconds Skin: Multiple superficial ulcer with seepage of fluid. Musculoskeletal: Mild tenderness of right posterior lateral thigh with induration probably cellulitis. No abscess. ROM restricted. Mobility/ambulation on assistive device for last 3 weeks. Neurological: Cranial nerves II-XII grossly intact, DTR 2+/4 and Symmetrical, Neuro grossly intact Psych/Mental Status: Flat affect. Assessment & Plan Assessment/Plan (1) CHF exacerbation: (2) GI bleed: (3) NSTEMI, initial episode of care: PLAN: Plan The patient is an 87 y/o M Was admitted to ER for dyspnea on exertion and lower extremity edema large for last 4 days. Patient did not had chest discomfort. No fever chills cough or URI symptoms. #1. Acute Decompensated Presumed Diastolic CHF with moderate severe valvular heart disease elevated cardiac enzymes as noted #3: PCU. Patient had IV Lasix in ED and continued on it. ECHO noted 04/16/2022 with normal LV systolic function, EF 60%, LA severely enlarged, RA moderately enlarged, mild to moderate MVI, moderately severe TVI, trivial NILSON, mild PVI, RVSP 78 mmHg with evidence severe pulmonary hypertension Heart failure core measures including intake and output, fluid restriction less than 1500 mL, daily weight monitoring, kidney and electrolytes monitoring. Patient not on REJI/ARB due to possible RODRÍGUEZ. Low dose beta-jodie with holding parameters. Lipid profile shows LDL 18, HDL 24. TSH normal. Serum magnesium and phosphorus normal. On high intensity statin. #2. Anemia, acute on chronic suspected due to GI bleed with complication of chronic anticoagulant therapy and Cirrhotic disease w/ Prior EtOH Abuse history: Admission hemoglobin 7.9, MCV 86.8 with no clear prior baseline even in clinic sink system. Between 7 to 7.9 g gradually decreasing. Patient has history of cirrhosis and anticoagulant treatment. Guaiac positive. Health Equipment Servicer consulted. 02/11 patient n.p.o. for possible EGD. 02/12: Patient had EGD reported esophageal mucosal changes suspicious for Wakefield's esophagus. Medium sized hiatus hernia. Bile gastritis with hemorrhage, biopsied. Oozing gastric ulcers with pigmented material. No gross lesion in D2. #3. Acute myocardial injury probably non-STEMI type II from demand ischemia from heart failure exacerbation/valvular heart disease, severe pulmonary hypertension: EKG in ED w/ SR without acute evidence of ischemia, chest x-ray with mild degree of CHF with a small right pleural effusion and right basilar atelectasis as well as cardiomegaly, Trop elevated 277, 311, 307 and 304 flat and plateau. Automotive Parts Counterperson consulted. Echo is requested. At this time, patient not candidate for antiplatelet/anticoagulant due to given active GI bleed. Rest as mentioned above. 02/12: Patient was evaluated by type copy examiner and felt same non-STEMI type II probably due to demand ischemia secondary to anemia. Does not have anginal symptoms. 2D echo done reported EF 55 to 60%, severe biatrial enlargement, moderately severe 3+ eccentric TR, mild to moderate MR and severe pulmonary hypertension with RVSP 106 mmHg worsened from 78 mmHg of March 2022. #4. Suspected RODRÍGUEZ although unclear if underlying CKD unclear stage : Admission BUN/creatinine 62/2.45, suspected acute with elevated BUN probably from GI bleed. On IV diuretic because of hypervolemia physiology. 02/11: Mild improvement in creatinine 2.2. BUN 61. UA reviewed SG normal. Mild proteinuria. LE 500, RBC 0-5 WBCs 10-25 cells, bacteria 3+. Urine sodium 89. Based on IV ceftriaxone that will cover possible UTI or concern of RODRÍGUEZ from HRS. Protein creatinine ratio. 02/12: Creatinine 2.2. Mild hypokalemia. Potassium replaced. Being followed by casing builder. Renal ultrasound shows simple cyst does not need to be followed. Mildly it regulated urinary bladder without other evidence of bladder abnormality 02/13: Creatinine profile is getting better. Mild hypokalemia. Potassium is getting replaced. Started on low-dose spironolactone as patient has heart failure and cirrhosis. #5. Hyperglycemia: Admission glucose 160, no prior diabetic history reported, will obtain hemoglobin A1c and if appropriate obtain nutrition consultation for education and teaching, ADA diet once clinically appropriate and Accu-Cheks with insulin sliding scale. 02/12: Glucoses controlled. A1c less than 3.8% reported low. Diabetes mellitus or prediabetes ruled out. #6. Thrombocytopenia, unclear if acute or chronic: Admission platelet 117, given anemia as well temporally holding anticoagulation pending further work-up as noted, will trend CBC #7. Chronic Asthma: Will maintain on oxygen with wean as tolerated to room air, will temporally hold home inhaler in the interim transition to ATC budesonide therapy, PRN albuterol, HOB, IS parameters. #8. PAF: Not on rate or rhythm agent per review of current list but clarifying, on chronic Pradaxa regimen, temporarily holding given anemia noted and unclear baseline. #9. Hypertension: Continue home regimen including hydralazine, IV Lasix as noted, not on beta-jodie or REJI inhibitor however clarifying list, PRN hydralazine. #10. Hyperlipidemia: Continue home statin regimen. AM FLP. #11. BPH: We will continue patient home finasteride and doxazosin home regimen. #12. GERD: We will maintain on IV PPI pending further work-up given anemia and unclear baseline hemoglobin level. #13. DVT prophylaxis: SCDs, holding Pradaxa given #2 is noted. #14. CODE status: Patient HCPOA and living will is not in place however he notes his would be his decision maker if this was necessary. Discussed CODE status at length including difference between FULL code, DNR-CCA and DNR-CC status. Following discussions about the differences in these status, requested Full Code status. Charges/Coding Visit Charges Inpatient E&M: 05420 Subs Hosp L2
[2023-02-13] MEDS: Pantoprazole Sodium 40 MG Tablet PO ×2 (09:18→20:21)
[2023-02-13] MEDS: hydrALAZINE 10 MG Tablet 20 MG PO ×3 (09:18→17:01)
[2023-02-13] MEDS: Metoprolol Tartrate 25 MG Tablet 12.5 MG PO ×2 (09:18→20:21)
[2023-02-13] MEDS: Finasteride 5 MG Tablet PO (09:18)
[2023-02-13] MEDS: Spironolactone 25 MG Tablet 12.5 MG PO (09:18)
[2023-02-13] MEDS: Furosemide 40 MG/4 ML Vial IV ×2 (09:19→17:01)
--- NOTE | 2023-02-13 09:53 | CASEMGMT ---
SW spoke with therapy and they are recommending patient go to a senior living facility for rehab. SW met with patient. Introduced self and role at [facility]. SW told patient therapy's recommendations for SNF. Patient said he takes care of his who is on dialysis. SW explained to patient that right now he would not be strong enough to care for his . Per physician patient will be at [facility] through the weekend. Renee GREENFIELD
--- NOTE | 2023-02-13 10:04 | CASEMGMT ---
Hospitalist request palliative consult and order received. Palliative screening tool completed. Referral sent to [facility] Palliative.
--- NOTE | 2023-02-13 10:40 | WOUNDNOTE ---
in to reassess bilateral lower legs. there was still a moderate amount of serous drainage from the RLE. no drainage noted from the LLE. slightly less edema noted to bilateral lower legs. the redness is improving to the right posterior thigh. washed legs and feet with soap and water. pat dry. placed well padded dressings and wrapped with kerlix. reapplied the CHANTEL wraps from the base of the toes to just below the knees. pt tolerated well.
[2023-02-13] MEDS: Potassium Chloride Oral Tablet 20 MEQ 40 MEQ PO ×2 (11:56→12:00)
[2023-02-13] MEDS: 0.9% Saline Lock 10 ML Syringe IV ×2 (17:01→20:22)
[2023-02-13] MEDS: Atorvastatin Calcium 10 MG Tablet PO (20:21)
[2023-02-13] MEDS: Doxazosin 4 MG Tablet PO (20:21)
[2023-02-13] MEDS: Ceftriaxone 1 GM/50 ML BAG IV (20:22)
[2023-02-14] VITALS (13 sets, daily range): BP systolic 120–143; BP diastolic 41–75; PULSE 57–69; RESP 15–20; TEMP 36.6–36.8; O2SAT 94–99; BMI 29.9
[2023-02-14 03:58] LABS: Absolute Lymphocyte Count 0.72 X10^3/uL (0.83-4.51); Absolute Neutrophil Count 4.9 X10^3/uL (2.0-7.7); Basophil# 0.01 X10^3/uL; Basophil% 0.2 % (0-1); Eosinophil# 0.06 X10^3/uL; Hematocrit 21.6 % (40-54); Hemoglobin 6.7 g/dL (13.0-16.5); Lymphocyte # 0.72 X10^3/ul (0.83-4.51); Lymphocyte % 11.6 % (19-41); Mean Corpuscular Volume 83.7 fL (80-94); Mean Platelet Vol. 11.5 fl (6.2-12.0); Monocyte# 0.48 X10^3/uL; Monocyte% 7.7 % (0-10); NRBC Flagged by Analyzer 0 % (0-5); Neutrophil # 4.88 X10^3/uL (2.7-7.7); Neutrophil % 78.4 % (47-70); Platelet Count 134 K/mm3 (150-450); RBC Distribution Width SD 48.5 fl (35.1-43.9); Red Blood Count 2.58 M/mm3 (4.6-6.2); White Blood Count 6.2 K/mm3 (4.4-11.0)
[2023-02-14 05:08] LABS: Albumin, Serum 2.1 g/dL (3.2-5.0); BUN 64 mg/dL (7-18); Calcium,Total 7.9 mg/dL (8.5-10.1); Chloride 106 mmol/L (98-107); Creatinine, Serum 1.94 mg/dL (0.70-1.30); EST Glomerular Filtration Rate 35 mL/min (>60); Est Glom Filt Rate - Afr Amer 42 mL/min (>60); Estimated Creatinine Clearance 24.21 ml/min; Glucose 100 mg/dL (74-106); Phosphorus 3.4 mg/dL (2.5-4.9); Potassium 3.9 mmol/L (3.5-5.1); Sodium Level 140 mmol/L (136-145)
[2023-02-14] MEDS: Budesonide Respules 0.5 MG/2 ML AMPUL.NEB. INHALATION ×2 (07:02→19:25)
[2023-02-14] MEDS: Finasteride 5 MG Tablet PO (08:23)
[2023-02-14] MEDS: Spironolactone 25 MG Tablet 12.5 MG PO (08:23)
[2023-02-14] MEDS: Metoprolol Tartrate 25 MG Tablet 12.5 MG PO ×2 (08:24→21:45)
[2023-02-14] MEDS: Pantoprazole Sodium 40 MG Tablet PO ×2 (08:24→21:44)
[2023-02-14] MEDS: hydrALAZINE 10 MG Tablet 20 MG PO ×3 (08:24→16:29)
[2023-02-14] MEDS: Furosemide 40 MG/4 ML Vial IV ×2 (10:39→18:06)
[2023-02-14] MEDS: 0.9% Saline Lock 10 ML Syringe IV ×3 (10:40→21:48)
[2023-02-14] MEDS: Doxycycline 100 MG CAPSULE PO ×2 (12:18→21:43)
[2023-02-14 13:15] LABS: Hematocrit 26.8 % (40-54); Hemoglobin 8.8 g/dL (13.0-16.5)
--- NOTE | 2023-02-14 14:37 | PN.HOSP_ITS ---
Reason for Visit Reason for Visit: Diagnoses Essential (primary) hypertension (02/10/23) Non-ST elevation (NSTEMI) myocardial infarction (02/10/23) Pulmonary hypertension, unspecified (02/10/23) Acute on chronic diastolic (congestive) heart failure (02/10/23) Heart failure, unspecified (02/10/23) Gastrointestinal hemorrhage, unspecified (02/10/23) Disorder of kidney and ureter, unspecified (02/10/23) Dyspnea, unspecified (02/10/23) Subjective Subjective Follow-up for multiple acute issues including heart failure, severe anemia, GI bleed, cirrhosis and chronic kidney disease. Objective Data Objective Data Vital Signs: Vital Signs Temp Pulse Resp BP Pulse Ox O2 Del Method 98.1 F 60 15 129/75 H 99 Room Air 02/14/23 12:19 02/14/23 12:19 02/14/23 12:19 02/14/23 12:19 02/14/23 12:19 02/14/23 12:19 Oxygen Delivery Method Room Air Weight: 185 lb 3.013 oz Body Mass Index (BMI) 29.9 Intake & Output: Intake and Output for Last 24 Hours 02/12/23 02/13/23 02/14/23 23:59 23:59 23:59 Intake Total 320 / 320 1080 / 1080 1793.5 / 1793.5 Output Total 1600 / 1600 1400 / 2225 2100 / 2100 Balance -1280 / -1280 -320 / -1145 -306.5 / -306.5 Lab / Micro Data Result Diagrams: 02/14/23 13:09 02/14/23 03:19 Labs: Laboratory Results - last 24 hr 02/14/23 03:19: WBC 6.2, RBC 2.58 L, Hgb 6.7 L, Hct 21.6 L, MCV 83.7, MCH 26.0 L , MCHC 31.0 L, RDW Std Deviation 48.5 H, RDW Coeff of [place] 16.0 H, Plt Count 134 L, MPV 11.5, Immature Gran % (Auto) 1.100 H, Neut % (Auto) 78.4 H, Lymph % (Auto) 11.6 L, [place] % (Auto) 7.7, Eos % (Auto) 1.0, Baso % (Auto) 0.2, Absolute Neuts (auto) 4.9, Absolute Lymphs (auto) 0.72 L, Nucleated RBC % 0 02/14/23 03:19: Sodium 140, Potassium 3.9, Chloride 106, Carbon Dioxide 26.0, BUN 64 H, Creatinine 1.94 H, Estim Creat Clear Calc 24.21, Est GFR (MDRD) Af Amer 42 L, Est GFR (MDRD) Non-Af 35 L, BUN/Creatinine Ratio 33.0 H, Glucose 100, Calcium 7.9 L, Phosphorus 3.4, Albumin 2.1 L 02/14/23 06:30: Blood Type O POSITIVE, Antibody Screen NEGATIVE, Crossmatch See Detail 02/14/23 13:09: Hgb 8.8 L, Hct 26.8 L Micro: Microbiology 02/10/23 16:43 Stool Stool Occult Blood (CLEVE) - Final Occult Blood Positive Physical Exam Narrative Seen and examined. Patient dropped hemoglobin to 6.7. Patient had 1 unit of PRBC. Repeat hemoglobin is 8.8. Patient also has blisters over right lateral thigh. Physical exam General: Alert, Oriented x3, Cooperative, BMI 29.2 kg/m? HEENT: Atraumatic, PERRLA, EOMI, Normocephalic Oral: Oral mucosa moist. No Gingival or Mucosal Lesions/ Ulcerations Neck: Supple, No JVD, Negative Carotid Bruits Lungs: Air entry diminished in bilateral lung bases. No crepitation/rhonchi Cardiovascular: Regular rate, Regular Rhythm, Normal S1, Normal S2, No murmurs Abdomen: Bowel Sounds Present, Soft, Non Tender, Non-Distended : No renal angle tenderness. No suprapubic tenderness. Extremities: 2+ leg edema above the knee. Reji wrap bandage., Capillary Refill Less than 3 Seconds Skin: Multiple superficial ulcer with seepage of fluid. Clear fluid-filled blister over right lateral thigh. Musculoskeletal: Mild tenderness of right posterior lateral thigh with induration probably cellulitis. No abscess. ROM restricted. Mobility/ambulation on assistive device for last 3 weeks. Neurological: Cranial nerves II-XII grossly intact, DTR 2+/4 and Symmetrical, Neuro grossly intact Psych/Mental Status: Flat affect. Assessment & Plan Assessment/Plan (1) CHF exacerbation: (2) GI bleed: (3) NSTEMI, initial episode of care: PLAN: Plan The patient is an 87 y/o M Was admitted to ER for dyspnea on exertion and lower extremity edema large for last 4 days. Patient did not had chest discomfort. No fever chills cough or URI symptoms. #1. Acute Decompensated Presumed Diastolic CHF with moderate severe valvular heart disease elevated cardiac enzymes as noted #3: PCU. Patient had IV Lasix in ED and continued on it. ECHO noted 04/16/2022 with normal LV systolic function, EF 60%, LA severely enlarged, RA moderately enlarged, mild to moderate MVI, moderately severe TVI, trivial NILSON, mild PVI, RVSP 78 mmHg with evidence severe pulmonary hypertension Heart failure core measures including intake and output, fluid restriction less than 1500 mL, daily weight monitoring, kidney and electrolytes monitoring. Patient not on REJI/ARB due to possible RODRÍGUEZ. Low dose beta-jodie with holding parameters. Lipid profile shows LDL 18, HDL 24. TSH normal. Serum magnesium and phosphorus normal. On high intensity statin. #2. Anemia, acute on chronic due to GI bleed with complication of chronic anticoagulant therapy and Cirrhotic disease w/ Prior EtOH Abuse history: Admission hemoglobin 7.9, MCV 86.8 with no clear prior baseline even in clinic sink system. Between 7 to 7.9 g gradually decreasing. Patient has history of cirrhosis and anticoagulant treatment. Guaiac positive. Set Up Inspector consulted. 02/11 patient n.p.o. for possible EGD. 02/12: Patient had EGD reported esophageal mucosal changes suspicious for Wakefield's esophagus. Medium sized hiatus hernia. Bile gastritis with hemorrhage, biopsied. Oozing gastric ulcers with pigmented material. No gross lesion in D2. 02/14: Hemoglobin dropped to 6.7. Patient had 1 unit of PRBC transfusion. Repeat hemoglobin 8.8. Platelet count 134,000. #3. Acute myocardial injury probably non-STEMI type II from demand ischemia from heart failure exacerbation/valvular heart disease, severe pulmonary hypertension: EKG in ED w/ SR without acute evidence of ischemia, chest x-ray with mild degree of CHF with a small right pleural effusion and right basilar atelectasis as well as cardiomegaly, Trop elevated 277, 311, 307 and 304 flat and plateau. Program Development Manager consulted. Echo is requested. At this time, patient not candidate for antiplatelet/anticoagulant due to given active GI bleed. Rest as mentioned above. 02/12: Patient was evaluated by research associate molecular biology and felt same non-STEMI type II probably due to demand ischemia secondary to anemia. Does not have anginal symptoms. 2D echo done reported EF 55 to 60%, severe biatrial enlargement, moderately severe 3+ eccentric TR, mild to moderate MR and severe pulmonary hypertension with RVSP 106 mmHg worsened from 78 mmHg of March 2022. #4. Suspected RODRÍGUEZ although unclear if underlying CKD unclear stage : Admission BUN/creatinine 62/2.45, suspected acute with elevated BUN probably from GI bleed. On IV diuretic because of hypervolemia physiology. 02/11: Mild improvement in creatinine 2.2. BUN 61. UA reviewed SG normal. Mild proteinuria. LE 500, RBC 0-5 WBCs 10-25 cells, bacteria 3+. Urine sodium 89. Based on IV ceftriaxone that will cover possible UTI or concern of RODRÍGUEZ from HRS. Protein creatinine ratio. 02/12: Creatinine 2.2. Mild hypokalemia. Potassium replaced. Being followed by computer mechanic. Renal ultrasound shows simple cyst does not need to be followed. Mildly trabeculated urinary bladder without other evidence of bladder abnormality 02/13: Creatinine profile is getting better. Mild hypokalemia. Potassium is getting replaced. Started on low-dose spironolactone as patient has heart failure and cirrhosis. 02/14: Electrolytes in normal range. Creatinine 1.9. 02/15: Patient has a blister over right lateral thigh and had redness in the right anterolateral thigh and lower leg which has improved. Patient still has blisters. Doxycycline added on top of ceftriaxone to cover Staph aureus. Mupirocin cream #5. Hyperglycemia: Admission glucose 160, no prior diabetic history reported, will obtain hemoglobin A1c and if appropriate obtain nutrition consultation for education and teaching, ADA diet once clinically appropriate and Accu-Cheks with insulin sliding scale. 02/12: Glucoses controlled. A1c less than 3.8% reported low. Diabetes mellitus or prediabetes ruled out. #6. Thrombocytopenia, unclear if acute or chronic: Admission platelet 117, given anemia as well temporally holding anticoagulation pending further work-up as noted, will trend CBC #7. Chronic Asthma: Will maintain on oxygen with wean as tolerated to room air, will temporally hold home inhaler in the interim transition to ATC budesonide therapy, PRN albuterol, HOB, IS parameters. #8. PAF: Not on rate or rhythm agent per review of current list but clarifying, on chronic Pradaxa regimen, temporarily holding given anemia noted and unclear baseline. #9. Hypertension: Continue home regimen including hydralazine, IV Lasix as noted, not on beta-jodie or REJI inhibitor however clarifying list, PRN hydralazine. #10. Hyperlipidemia: Continue home statin regimen. AM FLP. #11. BPH: We will continue patient home finasteride and doxazosin home regimen. #12. GERD: We will maintain on IV PPI pending further work-up given anemia and unclear baseline hemoglobin level. #13. DVT prophylaxis: SCDs, holding Pradaxa given #2 is noted. #14. CODE status: Patient HCPOA and living will is not in place however he not es his would be his decision maker if this was necessary. Discussed CODE status at length including difference between FULL code, DNR-CCA and DNR-CC status. Following discussions about the differences in these status, requested Full Code status. Charges/Coding Visit Charges Inpatient E&M: 98337 Subs Hosp L2
[2023-02-14] MEDS: Mupirocin Ointment 22gm Tube 1 APPLIC TOPICAL ×2 (16:28→21:42)
[2023-02-14] MEDS: Atorvastatin Calcium 10 MG Tablet PO (21:44)
[2023-02-14] MEDS: Doxazosin 4 MG Tablet PO (21:44)
[2023-02-14] MEDS: Ceftriaxone 1 GM/50 ML BAG IV (21:50)
[2023-02-15] VITALS (10 sets, daily range): BP systolic 122–125; BP diastolic 42–52; PULSE 50–86; RESP 18; TEMP 36.6–37; O2SAT 95–98; BMI 29.6
[2023-02-15 06:25] LABS: Absolute Neutrophil Count 6.1 X10^3/uL (2.0-7.7); Basophil# 0.02 X10^3/uL; Basophil% 0.3 % (0-1); Eosinophil# 0.11 X10^3/uL; Eosinophils% 1.4 % (0-5); Hematocrit 23.5 % (40-54); Hemoglobin 7.6 g/dL (13.0-16.5); Lymphocyte % 10.5 % (19-41); Mean Corp Hgb Conc 32.3 g/dL (32-36); Mean Corpuscular Volume 83.6 fL (80-94); Monocyte# 0.49 X10^3/uL; Monocyte% 6.4 % (0-10); NRBC Flagged by Analyzer 0 % (0-5); Neutrophil # 6.12 X10^3/uL (2.7-7.7); Neutrophil % 80.6 % (47-70); Platelet Count 150 K/mm3 (150-450); RBC Distribution Width CV 15.9 % (11.6-14.6); RBC Distribution Width SD 48.4 fl (35.1-43.9); Red Blood Count 2.81 M/mm3 (4.6-6.2); White Blood Count 7.6 K/mm3 (4.4-11.0)
[2023-02-15 06:46] LABS: Albumin, Serum 1.9 g/dL (3.2-5.0); BUN 67 mg/dL (7-18); BUN/Creat Ratio 36.4 RATIO (10-20); Calcium,Total 8.3 mg/dL (8.5-10.1); Chloride 105 mmol/L (98-107); Creatinine, Serum 1.84 mg/dL (0.70-1.30); EST Glomerular Filtration Rate 37 mL/min (>60); Est Glom Filt Rate - Afr Amer 45 mL/min (>60); Estimated Creatinine Clearance 25.52 ml/min; Glucose 119 mg/dL (74-106); Phosphorus 3.1 mg/dL (2.5-4.9); Potassium 3.6 mmol/L (3.5-5.1); Sodium Level 139 mmol/L (136-145)
[2023-02-15] MEDS: Budesonide Respules 0.5 MG/2 ML AMPUL.NEB. INHALATION ×2 (07:03→19:46)
--- NOTE | 2023-02-15 08:15 | PCM.PN.HOSP ---
Reason for Visit Reason for Visit: Diagnoses Essential (primary) hypertension (02/10/23) Non-ST elevation (NSTEMI) myocardial infarction (02/10/23) Pulmonary hypertension, unspecified (02/10/23) Acute on chronic diastolic (congestive) heart failure (02/10/23) Heart failure, unspecified (02/10/23) Gastrointestinal hemorrhage, unspecified (02/10/23) Disorder of kidney and ureter, unspecified (02/10/23) Dyspnea, unspecified (02/10/23) Objective Data Objective Data Vital Signs: Vital Signs Temp Pulse Resp BP Pulse Ox O2 Del Method 98 F 64 18 122/52 H 95 Room Air 02/15/23 05:00 02/15/23 07:03 02/15/23 07:03 02/15/23 05:00 02/15/23 05:00 02/15/23 05:00 Oxygen Delivery Method Room Air Weight: 183 lb 6.793 oz Body Mass Index (BMI) 29.6 Intake & Output: Intake and Output for Last 24 Hours 02/13/23 02/14/23 02/15/23 23:59 23:59 23:59 Intake Total 1080 / 1080 2293.5 / 2293.5 0 / 0 Output Total 1400 / 2225 2600 / 2600 Balance -320 / -1145 -306.5 / -306.5 0 / 0 Lab / Micro Data Result Diagrams: 02/15/23 05:40 02/15/23 05:40 Labs: Laboratory Results - last 24 hr 02/14/23 06:30: Crossmatch See Detail 02/14/23 13:09: Hgb 8.8 L, Hct 26.8 L 02/15/23 05:40: WBC 7.6, RBC 2.81 L, Hgb 7.6 L, Hct 23.5 L, MCV 83.6, MCH 27.0, MCHC 32.3, RDW Std Deviation 48.4 H, RDW Coeff of [place] 15.9 H, Plt Count 150, MPV 11.0, Immature Gran % (Auto) 0.800, Neut % (Auto) 80.6 H, Lymph % (Auto) 10.5 L, [place] % (Auto) 6.4, Eos % (Auto) 1.4, Baso % (Auto) 0.3, Absolute Neuts (auto) 6.1, Absolute Lymphs (auto) 0.80 L, Nucleated RBC % 0 02/15/23 05:40: Sodium 139, Potassium 3.6, Chloride 105, Carbon Dioxide 27.0, BUN 67 H, Creatinine 1.84 H, Estim Creat Clear Calc 25.52, Est GFR (MDRD) Af Amer 45 L, Est GFR (MDRD) Non-Af 37 L, BUN/Creatinine Ratio 36.4 H, Glucose 119 H, Calcium 8.3 L, Phosphorus 3.1, Albumin 1.9 L Micro: Microbiology 02/10/23 16:43 Stool Stool Occult Blood (CLEVE) - Final Occult Blood Positive Physical Exam Narrative Seen and examined. Hemoglobin today 7.6. Patient had 1 unit of PRBC on 02/14/2023. Patient also has blisters over right lateral thigh. Physical exam General: Alert, Oriented x3, Cooperative, BMI 29.2 kg/m? HEENT: Atraumatic, PERRLA, EOMI, Normocephalic Oral: Oral mucosa moist. No Gingival or Mucosal Lesions/ Ulcerations Neck: Supple, No JVD, Negative Carotid Bruits Lungs: Air entry diminished in bilateral lung bases. No crepitation/rhonchi Cardiovascular: Regular rate, Regular Rhythm, Normal S1, Normal S2, No murmurs Abdomen: Bowel Sounds Present, Soft, Non Tender, Non-Distended : No renal angle tenderness. No suprapubic tenderness. Extremities: 2+ leg edema above the knee. Reji wrap bandage., Capillary Refill Less than 3 Seconds Skin: Multiple superficial ulcer with seepage of fluid. Clear fluid-filled blister over right lateral thigh. Musculoskeletal: Mild tenderness of right posterior lateral thigh with induration probably cellulitis. No abscess. ROM restricted. Mobility/ambulation on assistive device for last 3 weeks. Neurological: Cranial nerves II-XII grossly intact, DTR 2+/4 and Symmetrical, Neuro grossly intact Psych/Mental Status: Flat affect. Assessment & Plan Assessment/Plan (1) CHF exacerbation: (2) GI bleed: (3) NSTEMI, initial episode of care: PLAN: Plan The patient is an 87 y/o M Was admitted to ER for dyspnea on exertion and lower extremity edema large for last 4 days. Patient did not had chest discomfort. No fever chills cough or URI symptoms. #1. Acute Decompensated Presumed Diastolic CHF with moderate severe valvular heart disease elevated cardiac enzymes as noted #3: PCU. Patient had IV Lasix in ED and continued on it. ECHO noted 04/16/2022 with normal LV systolic function, EF 60%, LA severely enlarged, RA moderately enlarged, mild to moderate MVI, moderately severe TVI, trivial NILSON, mild PVI, RVSP 78 mmHg with evidence severe pulmonary hypertension Heart failure core measures including intake and output, fluid restriction less than 1500 mL, daily weight monitoring, kidney and electrolytes monitoring. Patient not on REJI/ARB due to possible RODRÍGUEZ. Low dose beta-jodie with holding parameters. Lipid profile shows LDL 18, HDL 24. TSH normal. Serum magnesium and phosphorus normal. On high intensity statin. 02/17: Patient shortness of breath is better. Pulse ox 98% on room air. Change IV Lasix to oral. #2. Anemia, acute on chronic due to GI bleed with complication of chronic anticoagulant therapy and Cirrhotic disease w/ Prior EtOH Abuse history: Admission hemoglobin 7.9, MCV 86.8 with no clear prior baseline even in clinic sink system. Between 7 to 7.9 g gradually decreasing. Patient has history of cirrhosis and anticoagulant treatment. Guaiac positive. Bank Teller Machine Mechanic consulted. 02/11 patient n.p.o. for possible EGD. 02/12: Patient had EGD reported esophageal mucosal changes suspicious for [place]'s esophagus. Medium sized hiatus hernia. Bile gastritis with hemorrhage, biopsied. Oozing gastric ulcers with pigmented material. No gross lesion in D2. 02/14: Hemoglobin dropped to 6.7. Patient had 1 unit of PRBC transfusion. Repeat hemoglobin 8.8. Platelet count 134,000. 02/15: Hemoglobin 7.6. Patient does not need daily labs as it is going to further decrease his hemoglobin. Labs ordered every other day. #3. Acute myocardial injury probably non-STEMI type II from demand ischemia from heart failure exacerbation/valvular heart disease, severe pulmonary hypertension: EKG in ED w/ SR without acute evidence of ischemia, chest x-ray with mild degree of CHF with a small right pleural effusion and right basilar atelectasis as well as cardiomegaly, Trop elevated 277, 311, 307 and 304 flat and plateau. Banana Ripening Room Supervisor consulted. Echo is requested. At this time, patient not candidate for antiplatelet/anticoagulant due to given active GI bleed. Rest as mentioned above. 02/12: Patient was evaluated by rake operator and felt same non-STEMI type II probably due to demand ischemia secondary to anemia. Does not have anginal symptoms. 2D echo done reported EF 55 to 60%, severe biatrial enlargement, moderately severe 3+ eccentric TR, mild to moderate MR and severe pulmonary hypertension with RVSP 106 mmHg worsened from 78 mmHg of March 2022. #4. Suspected RODRÍGUEZ although unclear if underlying CKD unclear stage, suspected UTI/cystitis, SBP and right lower extremity cellulitis: Admission BUN/creatinine 62/2.45, suspected acute with elevated BUN probably from GI bleed. On IV diuretic because of hypervolemia physiology. 02/11: Mild improvement in creatinine 2.2. BUN 61. UA reviewed SG normal. Mild proteinuria. LE 500, RBC 0-5 WBCs 10-25 cells, bacteria 3+. Urine sodium 89. Based on IV ceftriaxone that will cover possible UTI or concern of RODRÍGUEZ from HRS. Protein creatinine ratio. 02/12: Creatinine 2.2. Mild hypokalemia. Potassium replaced. Being followed by health coordinator. Renal ultrasound shows simple cyst does not need to be followed. Mildly trabeculated urinary bladder without other evidence of bladder abnormality 02/13: Creatinine profile is getting better. Mild hypokalemia. Potassium is getting replaced. Started on low-dose spironolactone as patient has heart failure and cirrhosis. 02/14: Electrolytes in normal range. Creatinine 1.9. 02/15: Patient has a blister over right lateral thigh and had redness in the right anterolateral thigh and lower leg which has improved. Patient still has blisters. Doxycycline added on top of ceftriaxone to cover Staph aureus. Mupirocin cream 02/17: Right anterolateral thigh has big blister which increased since yesterday. Drainage noticed with soakage of sheet. Patient on ceftriaxone. Doxycycline changed to Bactrim DS. On mupirocin 2% cream twice daily. ID consulted. Discussed with nursing staff. Creatinine gradually improving from 2.45-1.84 #5. Hyperglycemia: Admission glucose 160, no prior diabetic history reported, will obtain hemoglobin A1c and if appropriate obtain nutrition consultation for education and teaching, ADA diet once clinically appropriate and Accu-Cheks with insulin sliding scale. 02/12: Glucoses controlled. A1c less than 3.8% reported low. Diabetes mellitus or prediabetes ruled out. #6. Thrombocytopenia, unclear if acute or chronic: Admission platelet 117, given anemia as well temporally holding anticoagulation pending further work-up as noted, will trend CBC #7. Chronic Asthma: Will maintain on oxygen with wean as tolerated to room air, will temporally hold home inhaler in the interim transition to ATC budesonide therapy, PRN albuterol, HOB, IS parameters. #8. PAF: Not on rate or rhythm agent per review of current list but clarifying, on chronic Pradaxa regimen, temporarily holding given anemia noted and unclear baseline. #9. Hypertension: Continue home regimen including hydralazine, IV Lasix as noted, not on beta-jodie or REJI inhibitor however clarifying list, PRN hydralazine. #10. Hyperlipidemia: Continue home statin regimen. AM FLP. #11. BPH: We will continue patient home finasteride and doxazosin home regimen. #12. GERD: We will maintain on IV PPI pending further work-up given anemia and unclear baseline hemoglobin level. #13. DVT prophylaxis: SCDs, holding Pradaxa given #2 is noted. #14. CODE status: Patient HCPOA and living will is not in place however he notes his would be his decision maker if this was necessary. Discussed CODE status at length including difference between FULL code, DNR-CCA and DNR-CC status. Following discussions about the differences in these status, requested Full Code status. Charges/Coding Visit Charges Inpatient E&M: 61377 Subs Hosp L2
[2023-02-15 08:52] LABS: Mucous, Urine 0 SEEN /hpf (<or=2+); Squamous Epithelial Cells - UA 0 SEEN /hpf (0-5)
--- NOTE | 2023-02-15 08:55 | NURSING ---
urinalysis and urine cx , wound cx for right thigh blister all sent to lab
[2023-02-15 08:58] LABS: Color, Urine Yellow (Yellow); Glucose, Dipstick Normal (Normal); Ketone-Dipstick Negative (Negative); Leukocyte Esterase-Dipstick 25 /ul (Negative); Nitrite-Dipstick Negative (Negative); Occult Blood-Urine 250 /ul (Negative); Protein-Dipstick 15 mg/dl (Negative); Urine Bilirubin Dipstick Negative (Negative); Urine Clarity Clear (Clear); Urine Urobilinogen Normal (Normal)
[2023-02-15 09:08] LABS: Bacteria RARE /hpf (None Seen); Red Blood Cells-Urine 5-10 SEEN /hpf (0-5); White Blood Cells 0-5 SEEN /hpf (0-5)
[2023-02-15] MEDS: hydrALAZINE 10 MG Tablet 20 MG PO ×3 (10:00→16:46)
[2023-02-15] MEDS: Mupirocin Ointment 22gm Tube 1 APPLIC TOPICAL ×2 (10:01→20:26)
[2023-02-15] MEDS: Spironolactone 25 MG Tablet 12.5 MG PO (10:01)
[2023-02-15] MEDS: Metoprolol Tartrate 25 MG Tablet 12.5 MG PO ×2 (10:02→20:26)
[2023-02-15] MEDS: Furosemide 40 MG/4 ML Vial IV (10:02)
[2023-02-15] MEDS: Pantoprazole Sodium 40 MG Tablet PO ×2 (10:03→20:26)
[2023-02-15] MEDS: Finasteride 5 MG Tablet PO (10:03)
[2023-02-15] MEDS: Smz/Tmp Ds Tablet 1 TABLET PO (10:04)
--- NOTE | 2023-02-15 13:51 | PN.RENAL_ITS ---
Subjective Subjective No new events Objective Data Objective Data Vital Signs: Vital Signs Temp Pulse Resp BP Pulse Ox O2 Del Method 98.0 F 80 18 125/42 H 98 Room Air 02/15/23 10:00 02/15/23 12:56 02/15/23 10:00 02/15/23 10:00 02/15/23 10:00 02/15/23 10:00 Oxygen Delivery Method Room Air Weight: 83.2 kg Body Mass Index (BMI) 29.6 Intake & Output: Intake and Output for Last 24 Hours 02/13/23 02/14/23 02/15/23 23:59 23:59 23:59 Intake Total 1080 / 1080 2293.5 / 2293.5 250 / 250 Output Total 1400 / 2225 2600 / 2600 300 / 300 Balance -320 / -1145 -306.5 / -306.5 -50 / -50 Lab / Micro Data Result Diagrams: 02/15/23 05:40 02/15/23 05:40 Labs: Laboratory Results - last 24 hr 02/15/23 05:40: WBC 7.6, RBC 2.81 L, Hgb 7.6 L, Hct 23.5 L, MCV 83.6, MCH 27.0, MCHC 32.3, RDW Std Deviation 48.4 H, RDW Coeff of [place] 15.9 H, Plt Count 150, MPV 11.0, Immature Gran % (Auto) 0.800, Neut % (Auto) 80.6 H, Lymph % (Auto) 10.5 L, [place] % (Auto) 6.4, Eos % (Auto) 1.4, Baso % (Auto) 0.3, Absolute Neuts (auto) 6.1, Absolute Lymphs (auto) 0.80 L, Nucleated RBC % 0 02/15/23 05:40: Sodium 139, Potassium 3.6, Chloride 105, Carbon Dioxide 27.0, BUN 67 H, Creatinine 1.84 H, Estim Creat Clear Calc 25.52, Est GFR (MDRD) Af Amer 45 L, Est GFR (MDRD) Non-Af 37 L, BUN/Creatinine Ratio 36.4 H, Glucose 119 H, Calcium 8.3 L, Phosphorus 3.1, Albumin 1.9 L 02/15/23 08:30: Urine Color Yellow, Urine Clarity Clear, Urine pH 6.0, Ur Specific [place] 1.010, Urine Protein 15 H, Urine Glucose (UA) Normal, Urine Ketones Negative, Urine Occult Blood 250 H, Urine Nitrite Negative, Urine Bilirubin Negative, Urine Urobilinogen Normal, Ur Leukocyte Esterase 25 H, Urine RBC 5-10 SEEN, Urine WBC 0-5 SEEN, Ur Squamous Epith Cells 0 SEEN, Urine Bacteria RARE, Urine Mucus 0 SEEN 02/15/23 08:35: S.aureus Protein A PCR Cancelled, MRSA (PCR) Cancelled Micro: Microbiology 02/10/23 16:43 Stool Stool Occult Blood (CLEVE) - Final Occult Blood Positive Physical Exam Narrative Alert and oriented x3, no apparent distress S1, S2, RRR Lung sounds clear anteriorly and posteriorly. No wheezes, rhonchi or rales noted. On room air Abdomen soft, nondistended, positive bowel sounds 2-3+ pitting edema noted bilateral lower legs with right greater than left. Reji wrap intact to both legs. Developing wrinkles to bilateral feet/toes. Assessment & Plan Assessment/Plan (1) Renal insufficiency: (2) Dyspnea: (3) Hypertension: PLAN: Plan This is an 87-year-old male with past medical history significant for hypertension, A-fib, alcohol use, severe pulmonary hypertension and diastolic heart failure who presented to the emergency room with complaints of shortness of breath and worsening lower extremity edema admitted for further evaluation and treatment. Nephrology consulted as patient noted to have a creatinine of 2.45 mg/dL yesterday; concern for cardiorenal syndrome physiology versus hepatorenal syndrome physiology. Obtained labs from PCP: October 30, 2022 serum creatinine 1.47 mg/dL. 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 Fluctuating SCr levels given history of diastolic heart failure and severe pulmonary hypertension, may need to keep serum creatinine levels on higher side to keep patient volume compensated. Renal ultrasound did not show any hydronephrosis. UA showed 30 of protein, occult blood 250, no RBC. Patient had abdominal ultrasound which showed mild ascites, cholelithiasis and questionable cirrhosis; no right hydronephrosis. UPC 1380mg/g. 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
[2023-02-15] MEDS: Furosemide 40 MG Tablet PO (15:19)
[2023-02-15 15:33] LABS: M R Staph aureus DNA By PCR Negative (Negative); Probe Check PASS; Specimen Processing Control PASS; Staph aureus DNA By PCR NEGATIVE (Negative)
--- NOTE | 2023-02-15 18:44 | NURSING ---
RIGHT THIGH DRESSING REMOVED AND REDRESSED-LEG US MORE RED AND WARM THAN PRIOR, EXTENDING FROM BEND OF KNEE TO GROIN SEROUS DRAINAGE, SMALL AMOUNT ON OLD DRSG
[2023-02-15] MEDS: Doxazosin 4 MG Tablet PO (20:25)
[2023-02-15] MEDS: Atorvastatin Calcium 10 MG Tablet PO (20:26)
[2023-02-15] MEDS: 0.9% Saline Lock 10 ML Syringe IV (20:26)
[2023-02-15] MEDS: Ceftriaxone 1 GM/50 ML BAG IV (20:26)
[2023-02-16] VITALS (14 sets, daily range): BP systolic 122–149; BP diastolic 51–65; PULSE 54–66; RESP 16–20; TEMP 36.6–36.9; O2SAT 94–100
[2023-02-16] MEDS: Budesonide Respules 0.5 MG/2 ML AMPUL.NEB. INHALATION ×2 (07:31→19:15)
[2023-02-16 08:13] LABS: International Normalized Ratio 1.4; Prothrombin Time (Protime)PT. 16.9 SECONDS (11.7-14.9)
--- NOTE | 2023-02-16 09:20 | PN.RENAL_ITS ---
Documented by User: ARIANNA Saldivar 02/16/23 09:27 Subjective Subjective Sitting up in bed eating breakfast. No overnight events. No complaints today. Objective Data Objective Data Vital Signs: Vital Signs Temp Pulse Resp BP Pulse Ox O2 Del Method 98.3 F 61 16 122/51 H 95 Room Air 02/16/23 02:50 02/16/23 07:31 02/16/23 07:31 02/16/23 02:50 02/16/23 07:31 02/16/23 08:42 Oxygen Delivery Method Room Air Weight: 83.2 kg Body Mass Index (BMI) 29.6 Intake & Output: Intake and Output for Last 24 Hours 02/14/23 02/15/23 02/16/23 23:59 23:59 23:59 Intake Total 2293.5 / 2293.5 295 / 445 150 / 150 Output Total 2600 / 2600 300 / 850 1050 / 1050 Balance -306.5 / -306.5 -5 / -405 -900 / -900 Lab / Micro Data Result Diagrams: 02/16/23 05:20 02/16/23 09:52 Labs: Laboratory Results - last 24 hr 02/15/23 08:35: S.aureus Protein A PCR Cancelled, MRSA (PCR) Cancelled 02/15/23 14:00: S.aureus Protein A PCR NEGATIVE, MRSA (PCR) Negative 02/16/23 05:20: PT 16.9 H, INR 1.4 Micro: Microbiology 02/10/23 16:43 Stool Stool Occult Blood (CLEVE) - Final Occult Blood Positive Physical Exam Narrative Alert and oriented x3, no apparent distress S1, S2, RRR Lung sounds clear anteriorly and posteriorly. No wheezes, rhonchi or rales noted. On room air Abdomen soft, nondistended, positive bowel sounds 2+ pitting edema noted bilateral lower legs with right greater than left, improving. Reji wrap intact to both legs. Developing wrinkles to bilateral feet/toes. Assessment & Plan Assessment/Plan (1) Dyspnea: (2) Hypertension: PLAN: Plan This is an 87-year-old male with past medical history significant for hypertension, A-fib, alcohol use, severe pulmonary hypertension and diastolic heart failure who presented to the emergency room with complaints of shortness of breath and worsening lower extremity edema admitted for further evaluation and treatment. Nephrology consulted as patient noted to have a creatinine of 2.45 mg/dL yesterday; concern for cardiorenal syndrome physiology versus hepatorenal syndrome physiology. Obtained labs from PCP: October 30, 2022 serum creatinine 1.47 mg/dL. 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 Fluctuating SCr levels given history of diastolic heart failure and severe pulmonary hypertension, may need to keep serum creatinine levels on higher side to keep patient volume compensated. Renal ultrasound did not show any hydronephrosis. UA showed 30 of protein, occult blood 250, no RBC. Patient had abdominal ultrasound which showed mild ascites, cholelithiasis and questionable cirrhosis; no right hydronephrosis. UPC 1380mg/g. 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 Serum creatinine peak was 2.45 mg/dL on admission, last serum creatinine 1.84 mg/dL (yesterday). Labs pending today. On bactrim for leg wound. Once discharged, we will arrange for hospital follow-up. Documented by User: Dr. Sandy Rosa MD 02/16/23 13:59 Objective Data Lab / Micro Data Result Diagrams: 02/16/23 05:20 02/16/23 09:52 Assessment & Plan Assessment/Plan (1) Dyspnea: (2) Hypertension: PLAN: Plan This is an 87-year-old male with past medical history significant for hypertension, A-fib, alcohol use, severe pulmonary hypertension and diastolic heart failure who presented to the emergency room with complaints of shortness of breath and worsening lower extremity edema admitted for further evaluation and treatment. Nephrology consulted as patient noted to have a creatinine of 2.45 mg/dL yesterday; concern for cardiorenal syndrome physiology versus hepatorenal syndrome physiology. Obtained labs from PCP: October 30, 2022 serum creatinine 1.47 mg/dL. 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 Fluctuating SCr levels given history of diastolic heart failure and severe pulmonary hypertension, may need to keep serum creatinine levels on higher side to keep patient volume compensated. Renal ultrasound did not show any hydronephrosis. UA showed 30 of protein, occult blood 250, no RBC. Patient had abdominal ultrasound which showed mild ascites, cholelithiasis and questionable cirrhosis; no right hydronephrosis. UPC 1380mg/g. 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 Serum creatinine peak was 2.45 mg/dL on admission, last serum creatinine 1.84 mg/dL (yesterday). Labs pending today. On bactrim for leg wound. Once discharged, we will arrange for hospital follow-up. Seen and examined. Possible discharge today. Will arrange follow-up after discharge.
[2023-02-16 10:17] LABS: Anion Gap 11 (5-15); BUN 66 mg/dL (7-18); BUN/Creat Ratio 35.7 RATIO (10-20); Calcium,Total 8.2 mg/dL (8.5-10.1); Chloride 105 mmol/L (98-107); Creatinine, Serum 1.85 mg/dL (0.70-1.30); EST Glomerular Filtration Rate 37 mL/min (>60); Est Glom Filt Rate - Afr Amer 45 mL/min (>60); Estimated Creatinine Clearance 25.39 ml/min; Glucose 187 mg/dL (74-106); Potassium 3.6 mmol/L (3.5-5.1); Sodium Level 140 mmol/L (136-145)
[2023-02-16] MEDS: Mupirocin Ointment 22gm Tube 1 APPLIC TOPICAL ×2 (10:22→21:21)
[2023-02-16] MEDS: Pantoprazole Sodium 40 MG Tablet PO ×2 (10:24→21:23)
[2023-02-16] MEDS: Finasteride 5 MG Tablet PO (10:24)
[2023-02-16] MEDS: hydrALAZINE 10 MG Tablet 20 MG PO ×3 (10:24→18:43)
[2023-02-16] MEDS: Furosemide 40 MG Tablet PO ×2 (10:25→18:43)
[2023-02-16] MEDS: Metoprolol Tartrate 25 MG Tablet 12.5 MG PO ×2 (10:25→21:22)
[2023-02-16] MEDS: Spironolactone 25 MG Tablet 12.5 MG PO (10:26)
[2023-02-16 10:31] LABS: Hematocrit 25.2 % (40-54); Hemoglobin 7.6 g/dL (13.0-16.5)
--- NOTE | 2023-02-16 10:38 | WOUNDNOTE ---
wound photo: right lateral thigh
--- NOTE | 2023-02-16 11:46 | PN.HOSP_ITS ---
Reason for Visit Reason for Visit: Shortness of breath/lower extremity edema Subjective Subjective Mr. Glynn is an 87-year-old white male who presented to the emergency department at [facility] with shortness of breath and increasing lower extremity edema. Did note he has chronic bilateral lower extremity edema in both of his legs that is typically left greater on the left than the right however he reported improvement on the left recently and worsening lower extremity edema on the right. Vital signs were unremarkable on presentation. He was found to be anemic on presentation which was new for him and GI was asked to evaluate the patient by the emergency department physician. He is on Pradaxa at baseline and this was held at admission. There was concern that he may have cirrhosis with a history of alcohol abuse so he was placed on a Protonix drip, octreotide drip, and ceftriaxone IV 1 g daily. His troponin was also found to be elevated on presentation and he had worsening renal function at the time of admission. Nephrology and cardiology were also consulted. Ultrasound of his right upper quadrant showed mild ascites with a shrunken nodular liver. An echocardiogram was performed and showed severe biatrial enlargement with an EF of 55 to 60%, severe eccentric tricuspid valve insufficiency, mild to moderate MR, severe pulmonary hypertension with right ventricular systolic pressure of 878 mmHg. I suspect his PAH is his predominant issue with regards to his lower extremity swelling. As noted his troponins were elevated and it was felt that he likely had an NSTEMI related to demand ischemia from his significant anemia and he was asymptomatic. No invasive testing was recommended by cardiology and he will follow-up as an outpatient after discharge. EGD was performed by gastroenterology on 02/11/2023 and he was noted to have esophageal mucosal changes suspicious for [place]'s esophagus that were biopsied, medium size hiatal hernia, bile gastritis with hemorrhage, oozing gastric ulcers with pi gmented material that were treated with heater probe and injection. His kidney function did slowly improve with time. Labs obtained from his PCP dated October 30, 2022 noted a serum creatinine of 1.47 likely from nephrosclerosis. It is noted by nephrology that he does seem to have fluctuating serum creatinine levels with his history of diastolic heart failure and severe pulmonary hypertension and likely need to keep his serum creatinine on the higher level to maintain volume compensation. Renal ultrasound did not show any hydronephrosis and was stable when compared to previous. He will need nephrology follow-up as outpatient. Patient states he is feeling much better. I did explain ID consult was pending for his wound on his leg. He is on Bactrim for this per previous attending. He is doing much better with therapy and will likely be able to discharge home with home health probably in the next 24 to 48 hours. He was pleased by this news. Objective Data Objective Data Vital Signs: Vital Signs Temp Pulse Resp BP Pulse Ox O2 Del Method 97.8 F 66 16 139/58 H 97 Room Air 02/16/23 10:14 02/16/23 10:25 02/16/23 10:14 02/16/23 10:25 02/16/23 10:14 02/16/23 10:14 Oxygen Delivery Method Room Air Weight: 83.2 kg Body Mass Index (BMI) 29.6 Intake & Output: Intake and Output for Last 24 Hours 02/14/23 02/15/23 02/16/23 23:59 23:59 23:59 Intake Total 2293.5 / 2293.5 295 / 445 150 / 150 Output Total 2600 / 2600 300 / 850 1050 / 1050 Balance -306.5 / -306.5 -5 / -405 -900 / -900 Lab / Micro Data Result Diagrams: 02/16/23 05:20 02/16/23 09:52 Labs: Laboratory Results - last 24 hr 02/15/23 08:35: S.aureus Protein A PCR Cancelled, MRSA (PCR) Cancelled 02/15/23 14:00: S.aureus Protein A PCR NEGATIVE, MRSA (PCR) Negative 02/16/23 05:20: PT 16.9 H, INR 1.4 02/16/23 05:20: Hgb 7.6 L, Hct 25.2 L 02/16/23 09:52: Sodium 140, Potassium 3.6, Chloride 105, Carbon Dioxide 24.0, Anion Gap 11, BUN 66 H, Creatinine 1.85 H, Estim Creat Clear Calc 25.39, Est GFR (MDRD) Af Amer 45 L, Est GFR (MDRD) Non-Af 37 L, BUN/Creatinine Ratio 35.7 H, Glucose 187 H, Calcium 8.2 L Micro: Microbiology 02/10/23 16:43 Stool Stool Occult Blood (CLEVE) - Final Occult Blood Positive Physical Exam Const alert, oriented x3, no apparent distress and well nourished Constitutional Narrative: Overweight, elderly, white male, sitting up in a chair at the bedside, appears comfortable and nontoxic, very pleasant HEENT head/scalp atraumatic and moist oral mucous membranes HEENT Narrative: Dentures in place, Mallampati 2, no thrush Head and Scalp: normocephalic Resp normal respiratory effort, no retractions, no use of accessory muscles and clear to auscultation bilaterally Auscultation: Negative for crackles, rhonchi or wheezes Cardio regular rate, regular rhythm, S1 normal heart sound, S2 normal heart sound and no rub; Negative for no murmurs, no gallops or no clicks Cardio Narrative: 2 out of 6 systolic murmur loudest at left lower sternal border GI normal to inspection, nondistended, normoactive bowel sounds and soft to palpation GI Narrative: No organomegaly noted Extremity Extremity Narrative: Bilateral lower extremity edema noted with Reji bandages in place, no clubbing or cyanosis noted Skin Skin Narrative: Right lateral thigh wound is reviewed with pictures by wound care-it does not look all that impressive for infection at this time and erythema seems to be more related to bruising. Neuro oriented x3, moves all extremities and no focal motor deficits Speech: speech normal Psych affect normal Psych Narrative: Very pleasant, eye contact is good, interaction is normal Assessment & Plan Assessment/Plan (1) Acute on chronic diastolic heart failure: (2) RODRÍGUEZ (acute kidney injury): (3) GI bleed: (4) Gastric ulcer: (5) NSTEMI, initial episode of care: (6) Pulmonary hypertension: (7) Liver cirrhosis: (8) Thrombocytopenia: PLAN: Plan Acute on chronic diastolic and right-sided heart failure -Likely the etiology of his lower extremity swelling -Continue lactone but will need to watch outpatient renal function and potassium closely -Continue Lasix 40 mg p.o. twice daily -Continue fluid restriction and sodium restriction -Patient is negative about 3 and half liters for his hospital stay and weight is down approximately 2.4 kg -I suspect he will likely have chronic lower extremity swelling based on his pulmonary hypertension despite diuretic therapy -We will need to allow for higher renal function to maintain euvolemia -Renal function has been stable at 1.8-1.9 over the last 3 days. 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 twice daily at discharge and disconti nue omeprazole -Biopsies taken -GI follow-up after discharge -We will touch base with GI to make sure they are okay with reinitiating Pradaxa at discharge -Ceftriaxone for SBP prophylaxis will be completed today Anemia -Suspect acute on chronic however baseline is unclear -Counts are stable Liver cirrhosis -Ultrasound shows nodular liver -Likely alcoholic versus Jaramillo -Outpatient follow-up after discharge -Continue beta-jodie -Continue Aldactone NSTEMI secondary to demand ischemia -Per cardiology likely related to anemia -Patient without chest pain throughout his hospital stay -No wall motion abnormality on echocardiogram -Outpatient cardiology follow-up Thrombocytopenia -Appears to be chronic -Likely related to splenic sequestration with liver cirrhosis -Counts appear to be stable History of asthma -Continue budesonide therapy -As needed albuterol PAF High can continue to jodie at discharge -Pradaxa on hold with GI bleeding -We will discuss with GI prior to discharge to assess whether or not they would like us to reinitiate or continue to hold until they follow-up as an outpatient Hypertension -Continue home regimen Hyperlipidemia -Continue home simvastatin BPH -Continue finasteride -Continue home doxazosin GERD -PPI as noted above DVT prophylaxis -SCDs -Chemoprophylaxis on hold secondary to GI bleeding CODE STATUS -Full code is verified admission
[2023-02-16] MEDS: Ferrous Sulfate 325 MG Tablet PO ×2 (13:52→18:43)
[2023-02-16] MEDS: Ascorbic Acid 500 MG Tablet 1000 MG PO ×2 (13:52→18:43)
--- NOTE | 2023-02-16 13:54 | CASEMGMT ---
RN CM in to discuss discharge needs with patient. RN CM reviewed progress with therapy and recommendations for HHC. A list of HHC providers including quality and resource use data and consistent with the patient?s preferred geographical region, medical needs, and insurance network were provided from the [facility] [facility]. Patient is not sure he will want HHC at discharge as his son and help at home. SEBASTIAN TEIXEIRA encouraged patient to discuss with family. CM will continue to follow this patient and plan for a safe discharge.
--- NOTE | 2023-02-16 13:58 | PCM.CONS.GEN ---
Assessment & Plan Assessment/Plan (1) Liver cirrhosis: PLAN: Suspect blistering is edema related. Will stop bactrim as it can make GFR worse. On ceftriaxone, plan on stopping tomorrow and d/c home soon. Will follow as needed, d/w Dr. Cantu HPI Consult Data Date of Consult: 02/16/23 HPI Narrative Reason for Consultation: cellulitis HPI Narrative: VAMSI CASTILLO, is a 87 M with cirrhosis, etoh abuse, presented 02/10 to ED with several days worsening edema, blistering, dyspnea, not feeling well. No fever or chills. Has been on abx here for suspected RLE cellulitis. Followed by wound care. Now on bactrim and ceftriaxone. Leg improving. No n/v/d. Full ROS performed and neg except as noted above. [facility] Medical History Anemia Asthma Atrial fibrillation BPH (benign prostatic hyperplasia) CKD (chronic kidney disease) GERD (gastroesophageal reflux disease) History of alcohol abuse Hyperlipidemia Hypertension Obesity Home Medications albuterol sulfate 90 mcg/actuation aerosol inhaler 1 puff inhalation PRN PRN Shortness Of Breath 02/10/23 [History Last Taken Unknown] budesonide-formoterol HFA 160 mcg-4.5 mcg/actuation aerosol inhaler (Symbicort) 1 puff inhalation BID 02/10/23 [History Last Taken Unknown] dabigatran etexilate 150 mg capsule (Pradaxa) 150 mg PO BID 02/10/23 [History Last Taken Unknown] doxazosin 4 mg tablet 4 mg PO QHS 02/10/23 [History Last Taken Unknown] finasteride 5 mg tablet 5 mg PO DAILY 02/10/23 [History Last Taken Unknown] hydralazine 10 mg tablet 20 mg PO TID 02/10/23 [History Last Taken Unknown] omeprazole 20 mg capsule,delayed release 20 mg PO DAILY 02/10/23 [History Last Taken Unknown] simvastatin 20 mg tablet 20 mg PO QHS 02/10/23 [History Last Taken Unknown] zolpidem 10 mg tablet 10 mg PO QHS PRN PRN Sleep 02/10/23 [History Last Taken Unknown] Allergy/AdvReac Type Severity Reaction Status Date / Time No Known Allergies Allergy Verified 02/10/23 15:02 Family History (Updated 02/10/23 @ 20:[address] Bel Dennis MD) Mother CVA (cerebral vascular accident) Hypertension Father CVA (cerebral vascular accident) Hypertension Sister COPD (chronic obstructive pulmonary disease) Lung cancer Diabetes Surgical History (Updated 02/10/23 @ 20:[address] Bel Dennis MD) History of inguinal hernia repair Social History (Updated 02/10/23 @ 20:[address] Bel Dennis MD) household members: spouse Smoking Status: Never smoker alcohol intake: current alcohol intake frequency: a few times a month details: Notes currently 1-2 beers q 2 weeks, prior heavy at least 2-3 or more daily substance use type: does not use Physical Exam Const alert and no apparent distress General Appearance: cooperative HEENT normocephalic and head/scalp atraumatic Eyes PERRL and EOMs intact bilaterally Neck supple and No nodes Resp normal air movement and clear to auscultation bilaterally Cardio regular rate and regular rhythm GI soft to palpation, non-tender and non-distended Extremity General Extremity: edema Skin Skin Narrative: reviewed photos of wounds Neuro CN's II-XII intact bilaterally Lab / Micro Data Attestation: I reviewed the patient's lab results. Result Diagrams: 02/16/23 05:20 02/16/23 09:52 Labs: Laboratory Results - last 24 hr 02/15/23 14:00: S.aureus Protein A PCR NEGATIVE, MRSA (PCR) Negative 02/16/23 05:20: PT 16.9 H, INR 1.4 02/16/23 05:20: Hgb 7.6 L, Hct 25.2 L 02/16/23 09:52: Sodium 140, Potassium 3.6, Chloride 105, Carbon Dioxide 24.0, Anion Gap 11, BUN 66 H, Creatinine 1.85 H, Estim Creat Clear Calc 25.39, Est GFR (MDRD) Af Amer 45 L, Est GFR (MDRD) Non-Af 37 L, BUN/Creatinine Ratio 35.7 H, Glucose 187 H, Calcium 8.2 L
[2023-02-16] MEDS: Atorvastatin Calcium 10 MG Tablet PO (21:23)
[2023-02-16] MEDS: Doxazosin 4 MG Tablet PO (21:23)
[2023-02-16] MEDS: Ceftriaxone 1 GM/50 ML BAG IV (21:23)
[2023-02-16] MEDS: 0.9% Saline Lock 10 ML Syringe IV (21:27)
[2023-02-17] VITALS (7 sets, daily range): BP systolic 137–153; BP diastolic 57–71; PULSE 53–67; RESP 16–19; TEMP 36.7–36.9; O2SAT 96–99; BMI 29.5
[2023-02-17 07:09] LABS: Absolute Lymphocyte Count 0.84 X10^3/uL (0.83-4.51); Absolute Neutrophil Count 6.6 X10^3/uL (2.0-7.7); Basophil# 0.02 X10^3/uL; Basophil% 0.2 % (0-1); Eosinophil# 0.17 X10^3/uL; Hematocrit 25.5 % (40-54); Hemoglobin 7.7 g/dL (13.0-16.5); Lymphocyte # 0.84 X10^3/ul (0.83-4.51); Lymphocyte % 10.1 % (19-41); Mean Corp Hgb Conc 30.2 g/dL (32-36); Mean Corpuscular Volume 86.1 fL (80-94); Mean Platelet Vol. 11.3 fl (6.2-12.0); Monocyte# 0.59 X10^3/uL; Monocyte% 7.1 % (0-10); NRBC Flagged by Analyzer 0 % (0-5); Neutrophil # 6.55 X10^3/uL (2.7-7.7); Neutrophil % 78.4 % (47-70); Platelet Count 212 K/mm3 (150-450); RBC Distribution Width CV 16.2 % (11.6-14.6); RBC Distribution Width SD 51.5 fl (35.1-43.9); Red Blood Count 2.96 M/mm3 (4.6-6.2); White Blood Count 8.4 K/mm3 (4.4-11.0)
[2023-02-17] MEDS: Budesonide Respules 0.5 MG/2 ML AMPUL.NEB. INHALATION (07:25)
--- NOTE | 2023-02-17 08:00 | PN_ITS ---
Subjective Subjective Patient has not had any more signs and symptoms of GI bleeding and is tolerating a diet. Objective Data Objective Data Vital Signs: Vital Signs Temp Pulse Resp BP Pulse Ox O2 Del Method 98.0 F 67 16 153/71 H 99 Room Air 02/17/23 09:42 02/17/23 12:34 02/17/23 09:42 02/17/23 12:34 02/17/23 12:04 02/17/23 09:42 Oxygen Delivery Method Room Air Weight: 182 lb 15.739 oz Body Mass Index (BMI) 29.5 Intake & Output: Intake and Output for Last 24 Hours 02/15/23 02/16/23 02/17/23 23:59 23:59 23:59 Intake Total 295 / 445 1000 / 1000 200 / 200 Output Total 300 / 850 2575 / 2575 1050 / 1050 Balance -5 / -405 -1575 / -1575 -850 / -850 Lab / Micro Data Result Diagrams: 02/17/23 06:22 02/16/23 09:52 Labs: Laboratory Results - last 24 hr 02/17/23 06:22: WBC 8.4, RBC 2.96 L, Hgb 7.7 L, Hct 25.5 L, MCV 86.1, MCH 26.0 L , MCHC 30.2 L D, RDW Std Deviation 51.5 H, RDW Coeff of [place] 16.2 H, Plt Count 212, MPV 11.3, Immature Gran % (Auto) 2.200 H, Neut % (Auto) 78.4 H, Lymph % (Auto) 10.1 L, [place] % (Auto) 7.1, Eos % (Auto) 2.0, Baso % (Auto) 0.2, Absolute Neuts (auto) 6.6, Absolute Lymphs (auto) 0.84, Nucleated RBC % 0 Micro: Microbiology 02/10/23 16:43 Stool Stool Occult Blood (CLEVE) - Final Occult Blood Positive Physical Exam Const alert, oriented x3, no apparent distress and well nourished Constitutional Narrative: Overweight, elderly, white male, sitting up in bed, appears comfortable and no ntoxic, very pleasant General Appearance: cooperative, comfortable, well kempt and well developed Orientation / Consciousness: awake, oriented to person, oriented to place and oriented to time Exam Limitations: no limitations Nutritional Appearance: overweight HEENT normocephalic, head/scalp atraumatic and moist oral mucous membranes HEENT Narrative: Severe hearing loss, dentition is poor, Mallampati is 2, no thrush Eyes PERRL and EOMs intact bilaterally Eyes Narrative: Conjunctiva are pale bilaterally, no scleral icterus Neck no lymphadenopathy and supple Neck Narrative: Trachea midline, no thyroid enlargement Resp normal respiratory effort, no retractions, no use of accessory muscles and clear to auscultation bilaterally Resp Narrative: Diffusely diminished but clear Auscultation: Negative for crackles, rhonchi or wheezes Cardio regular rate, regular rhythm, S1 normal heart sound, S2 normal heart sound and no rub; Negative for no murmurs, no gallops or no clicks Cardio Narrative: 2 out of 6 systolic murmur loudest at left lower sternal border GI normal to inspection, nondistended, normoactive bowel sounds and soft to palpation GI Narrative: No organomegaly noted Extremity Extremity Narrative: Trace to 1+ bilateral lower extremity edema that is pitting in nature, no clubbing or cyanosis noted Skin skin turgor normal and no jaundice Skin Narrative: Right lateral thigh wound is reviewed with pictures by wound care-it does not look all that impressive for infection at this time and erythema seems to be more related to bruising. Neuro oriented x3, CN's II-XII intact bilaterally, moves all extremities and no focal motor deficits Speech: speech normal Psych affect normal Psych Narrative: Very pleasant, eye contact is good, interaction is normal Assessment & Plan Assessment/Plan (1) Acute on chronic diastolic heart failure: (2) RODRÍGUEZ (acute kidney injury): (3) GI bleed: (4) Gastric ulcer: (5) NSTEMI, initial episode of care: (6) Pulmonary hypertension: (7) Liver cirrhosis: (8) Thrombocytopenia: PLAN: Plan Acute on chronic diastolic and right-sided heart failure -Likely the etiology of his lower extremity swelling -Continue lactone but will need to watch outpatient renal function and potassium closely -Continue Lasix 40 mg p.o. twice daily -Continue fluid restriction and sodium restriction -Patient is negative about 3 and half liters for his hospital stay and weight is down approximately 2.4 kg -I suspect he will likely have chronic lower extremity swelling based on his pulmonary hypertension despite diuretic therapy -We will need to allow for higher renal function to maintain euvolemia -Renal function has been stable at 1.8-1.9 over the last 3 days. -Echocardiogram done on 02/10/2023 shows an EF of 55 to 60% with severe biatrial enlargement, severe tricuspid valve insufficiency, mild to moderate MR, severe pulmonary hypertension with right ventricular systolic pressure 106 mmHg GI bleed due to gastric ulcer -Hemoglobin has stabilized -We will transition to Protonix 40 mg p.o. twice daily at discharge and discontinue omeprazole -Biopsies taken -GI follow-up after discharge -We will touch base with GI to make sure they are okay with reinitiating Pradaxa at discharge -Ceftriaxone for SBP prophylaxis will be completed today Anemia -Suspect acute on chronic however baseline is unclear -Counts are stable Liver cirrhosis -Ultrasound shows nodular liver -Likely alcoholic versus Jaramillo -Outpatient follow-up after discharge -Continue beta-jodie -Continue Aldactone Thrombocytopenia -Appears to be chronic -Likely related to splenic sequestration with liver cirrhosis -Counts appear to be stable Charges/Coding Visit Charges Inpatient E&M: 43195 Subs Hosp L3
[2023-02-17] MEDS: hydrALAZINE 10 MG Tablet 20 MG PO ×2 (08:31→12:34)
[2023-02-17] MEDS: Spironolactone 25 MG Tablet 12.5 MG PO (08:32)
[2023-02-17] MEDS: Pantoprazole Sodium 40 MG Tablet PO (08:33)
[2023-02-17] MEDS: Furosemide 40 MG Tablet PO (08:33)
[2023-02-17] MEDS: Finasteride 5 MG Tablet PO (08:33)
[2023-02-17] MEDS: Mupirocin Ointment 22gm Tube 1 APPLIC TOPICAL (11:00)
--- NOTE | 2023-02-17 12:17 | DS.PCM_ITS ---
Providers Date of Admission: 02/10/23 Date of Discharge: 02/17/23 Primary Care Physician: Dr. Atilio Jimenez, Consultations 02/10/23 21:03 Consult: Cardiology Routine Consulting Provider: Maciej Santos Reason for Consult: CHF Exac, NSTEMI type II EMERGENT Consult: No MD Notified: Yes Date Notified: 02/10/23 Time Notified: 19:35 Method of Notification: ED Physician Initiated Consult: Gastroenterology Routine Consulting Provider: [facility] Reason for Consult: GI bleed, anticoagulated EMERGENT Consult: No MD Notified: Yes Date Notified: 02/10/23 Time Notified: 19:35 Method of Notification: ED Physician Initiated 02/11/23 09:35 Consult: Nephrology Routine Consulting Provider: Tessie Stanton Reason for Consult: RODRÍGUEZ? 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 Heart failure with B/L weeping legs EMERGENT Consult: No Notified: Yes Date Notified: 02/15/23 Time Notified: 08:10 Method of Notification: Text Reason For Visit: CHF EXAC, NSTEMI, GI BLEED, SUSPECT RODRÍGUEZ Diagnosis Discharge Diagnosis (1) Liver cirrhosis: Status: Acute Code(s): K74.60 - Unspecified cirrhosis of liver (2) Hypertension: Status: Chronic Code(s): I10 - Essential (primary) hypertension (3) Dyspnea: Status: Acute Code(s): R06.00 - Dyspnea, unspecified Medications at Discharge Home Medications albuterol sulfate 90 mcg/actuation aerosol inhaler 1 puff inhalation PRN PRN Shortness Of Breath 02/10/23 budesonide-formoterol HFA 160 mcg-4.5 mcg/actuation aerosol inhaler (Symbicort) 1 puff inhalation BID 02/10/23 dabigatran etexilate 150 mg capsule (Pradaxa) 150 mg PO BID 02/10/23 doxazosin 4 mg tablet 4 mg PO QHS 02/10/23 finasteride 5 mg tablet 5 mg PO DAILY 02/10/23 hydralazine 10 mg tablet 20 mg PO TID 02/10/23 simvastatin 20 mg tablet 20 mg PO QHS 02/10/23 zolpidem 10 mg tablet 10 mg PO QHS PRN PRN Sleep 02/10/23 ferrous sulfate 325 mg (65 mg iron) tablet (FeroSul) 325 mg PO 1200,1700 #60 tabs 02/17/23 furosemide 40 mg tablet 40 mg PO BIDLX #60 tabs 02/17/23 metoprolol tartrate 25 mg tablet 12.5 mg PO BID #15 tabs 02/17/23 pantoprazole 40 mg tablet,delayed release 40 mg PO BID #60 tabs 02/17/23 spironolactone 25 mg tablet 12.5 mg PO DAILY #15 tabs 02/17/23 sucralfate 100 mg/mL oral suspension (Carafate) 10 ml PO Q6H #1,000 mL 02/17/23 Hospital Course Procedures 2-D Echocardiogram, EGD and - (Right upper quadrant ultrasound/renal ultrasound/bilateral lower extremity Dopplers) Summary of Care Provided Minutes Spent on Discharge: 39 Hospital Course: Mr. Glynn is an 87-year-old white male who presented to the emergency department at [facility] with shortness of breath and increasing lower extremity edema.? Did note he has chronic bilateral lower extremity edema in both of his legs that is typically left greater on the left than the right however he reported improvement on the left recently and worsening lower extremity edema on the right.? Vital signs were unremarkable on presentation.? He was found to be anemic on presentation which was new for him and GI was asked to evaluate the patient by the emergency department physician.? He is on Pradaxa at baseline and this was held at admission.? There was concern that he may have cirrhosis with a history of alcohol abuse so he was placed on a Protonix drip, octreotide drip, and ceftriaxone IV 1 g daily.? His troponin was also found to be elevated on presentation and he had worsening renal function at the time of admission.? Nephrology and cardiology were also consulted.? Ultrasound of his right upper quadrant showed mild ascites with a shrunken nodular liver.? An echocardiogram was performed and showed severe biatrial enlargement with an EF of 55 to 60%, severe eccentric tricuspid valve insufficiency, mild to moderate MR, severe pulmonary hypertension with right ventricular systolic pressure of 108 mmHg.? I suspect his PAH is his predominant issue with regards to his lower extremity swelling.? As noted his troponins were elevated and it was felt that cassandra severino likely had an NSTEMI related to demand ischemia from his significant anemia and he was asymptomatic.? No invasive testing was recommended by cardiology and he will follow-up as an outpatient after discharge.? EGD was performed by gastroenterology on 02/11/2023 and he was noted to have esophageal mucosal changes suspicious for [place]'s esophagus that were biopsied, medium size hiatal hernia, bile gastritis with hemorrhage, oozing gastric ulcers with pigmented material that were treated with heater probe and injection.? I discussed the case with gastroenterology and they stated that his ulcer was quite significant and large and recommended holding Pradaxa, continuing Protonix 40 mg p.o. twice daily, and initiating Carafate at discharge. His kidney function did slowly improve with time.? Labs obtained from his PCP dated October 30, 2022 noted a serum creatinine of 1.47 likely from nephrosclerosis.? It is noted by nephrology that he does seem to have fluctuating serum creatinine levels with his history of diastolic heart failure and severe pulmonary hypertension and likely need to keep his serum creatinine on the higher level to maintain volume compensation.? Renal ultrasound did not show any hydronephrosis and was stable when compared to previous. We will keep him on Lasix 40 mg p.o. twice daily at discharge to help manage his volume status. And for his pulmonary hypertension I have made a referral to pulmonology. He will need nephrology follow-up as outpatient and this will be arranged by Dr. Rosa's office after discharge. We started metoprolol and Aldactone as well. His hemoglobin was stable for 3 days prior to discharge. We did start iron tablets on him as well. Again he was to follow-up with Dr. Petty within 2 weeks, cardiology office within 4 weeks, pulmonary medicine office within 4 weeks, and nephrology within 3 weeks. I have also asked him to follow-up with his primary care physician within the next 2 weeks as well. We strongly recommended home [facility] care at discharge however the patient was adamant that he did not want this and that his son would help him at discharge. 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 Severe pulmonary hypertension RODRÍGUEZ CKD stage IIIb GI bleed Gastric ulcer Acute on chronic anemia Liver cirrhosis Thrombocytopenia NSTEMI secondary to demand ischemia History of asthma PAF Hypertension Hyperlipidemia BPH GERD Physical Exam Const alert, oriented x3, no apparent distress and well nourished Constitutional Narrative: Overweight, elderly, white male, sitting up in bed, appears comfortable and nontoxic, very pleasant General Appearance: cooperative, comfortable, well kempt and well developed Orientation / Consciousness: awake, oriented to person, oriented to place and oriented to time Exam Limitations: no limitations Nutritional Appearance: overweight HEENT normocephalic, head/scalp atraumatic and moist oral mucous membranes HEENT Narrative: Severe hearing loss, dentition is poor, Mallampati is 2, no thrush Eyes PERRL and EOMs intact bilaterally Eyes Narrative: Conjunctiva are pale bilaterally, no scleral icterus Neck no lymphadenopathy and supple Neck Narrative: Trachea midline, no thyroid enlargement Resp normal respiratory effort, no retractions, no use of accessory muscles and clear to auscultation bilaterally Resp Narrative: Diffusely diminished but clear Auscultation: Negative for crackles, rhonchi or wheezes Cardio regular rate, regular rhythm, S1 normal heart sound, S2 normal heart sound and no rub; Negative for no murmurs, no gallops or no clicks Cardio Narrative: 2 out of 6 systolic murmur loudest at left lower sternal border GI normal to inspection, nondistended, normoactive bowel sounds and soft to palpation GI Narrative: No organomegaly noted Extremity Extremity Narrative: Trace to 1+ bilateral lower extremity edema that is pitting in nature, no clubbing or cyanosis noted Skin skin turgor normal and no jaundice Skin Narrative: Right lateral thigh wound is reviewed with pictures by wound care-it does not look all that impressive for infection at this time and erythema seems to be more related to bruising. Neuro oriented x3, CN's II-XII intact bilaterally, moves all extremities and no focal motor deficits Speech: speech normal Psych affect normal Psych Narrative: Very pleasant, eye contact is good, interaction is normal Weight / BMI Weight Weight: 83 kg Body Mass Index (BMI) 29.5 ABG / Lab / Microbiology Data Result Diagrams: 02/17/23 06:22 02/16/23 09:52 Laboratory: Laboratory Results - last 24 hr 02/17/23 06:22: WBC 8.4, RBC 2.96 L, Hgb 7.7 L, Hct 25.5 L, MCV 86.1, MCH 26.0 L , MCHC 30.2 L D, RDW Std Deviation 51.5 H, RDW Coeff of [place] 16.2 H, Plt Count 212, MPV 11.3, Immature Gran % (Auto) 2.200 H, Neut % (Auto) 78.4 H, Lymph % (Auto) 10.1 L, [place] % (Auto) 7.1, Eos % (Auto) 2.0, Baso % (Auto) 0.2, Absolute Neuts (auto) 6.6, Absolute Lymphs (auto) 0.84, Nucleated RBC % 0 Microbiology: Microbiology 02/10/23 16:43 Stool Stool Occult Blood (CLEVE) - Final Occult Blood Positive D/C Instructions Discharge Diet: Low fat / Low cholesterol (Please restrict fluid to 2 L daily) and 2000 mg Sodium Diet Discharge Activity: Return to Normal Activity Meaningful Use Info Meaningful Use Diagnoses (Choose all that apply): None applicable Discharge Plan Admission Admit Date/Time: 02/10/23 19:34 Primary Reason for Your Visit: Shortness of Breath and LE Edema Attending Provider: Ivelisse Cantu Primary Care Provider: Atilio Jimenez Consulting Providers: Maciej Santos ; Bel Dennis ; Tessie Stanton ; Reggie Larsen ; Ryan Cowart Instructions Additional Instructions / Restrictions: 1. Please call your primary care physician and asked that he complete blood count and renal panel be done within the next week Discharge Orders/Prescriptions Prescriptions: New ferrous sulfate [FeroSul] 325 mg (65 mg iron) Tablet 325 mg PO 1200,1700 Qty: 60 1RF furosemide 40 mg Tablet 40 mg PO BIDLX Qty: 60 1RF metoprolol tartrate 25 mg Tablet 12.5 mg PO BID Qty: 15 1RF pantoprazole 40 mg Tablet,Delayed Release (Dr/Ec) 40 mg PO BID Qty: 60 1RF spironolactone 25 mg Tablet 12.5 mg PO DAILY Qty: 15 1RF sucralfate [Carafate] 100 mg/mL suspension 10 ml PO Q6H Qty: 1000 2RF Continued hydralazine 10 mg tablet 20 mg PO TID simvastatin 20 mg tablet 20 mg PO QHS Label Comments: TAKE 1 TABLET BY MOUTH NIGHTLY doxazosin 4 mg tablet 4 mg PO QHS Label Comments: TAKE 1 TABLET (4 MG) BY MOUTH NIGHTLY FOR 90 DOSES. zolpidem 10 mg tablet 10 mg PO QHS PRN PRN (Reason: Sleep) Label Comments: TAKE 1 TABLET BY MOUTH EVERY DAY AT NIGHT NEEDED FOR SLEEP albuterol sulfate 90 mcg/actuation HFA aerosol inhaler 1 puff INHALATION PRN PRN (Reason: Shortness Of Breath) Label Comments: INHALE 1 PUFF FOUR TIMES DAILY NEEDED FOR SHORTNESS OF BREATH finasteride 5 mg tablet 5 mg PO DAILY Label Comments: TAKE 1 TABLET BY MOUTH EVERY DAY budesonide-formoterol [Symbicort] 160-4.5 mcg/actuation HFA aerosol inhaler 1 puff INHALATION BID Label Comments: INHALE 1 PUFF TWICE DAILY Held dabigatran etexilate [Pradaxa] 150 mg capsule 150 mg PO BID Hold Instructions: Until instructed by Dr. Petty from that it is okay to restart Discontinued omeprazole 20 mg capsule,delayed release(/EC) 20 mg PO DAILY Label Comments: TAKE 1 CAPSULE BY MOUTH EVERY DAY Referrals / Follow Up: Atilio Jimenez DO [Primary Care Provider] - Within 2 Weeks Sandy Rosa MD [Med Staff - Consulting] - Within 1 Month Disposition Disposition (needs filled in before D/C Order can be placed): Home, Self Care Charges/Coding Visit Charges Inpatient E&M: 00218 Disch Hosp >30min
[2023-02-17] MEDS: Ascorbic Acid 500 MG Tablet 1000 MG PO (12:34)
[2023-02-17] MEDS: Ferrous Sulfate 325 MG Tablet PO (12:34)
--- NOTE | 2023-02-17 14:06 | PHA.DC.MC ---
Pharmacy Service has performed discharge medication reconciliation and counseling for this patient. 1. FERROUS SULFATE 325MG PO 1200,1700 2. FUROSEMIDE 40MG PO BIDLX 3. METOPROLOL TARTRATE 12.5MG PO BID 4. PANTOPRAZOLE 40MG PO BID 5. SUCRALFATE 1GM (10ML) PO Q6 6. SPIRONOLACTONE 12.5MG PO DAILY The patient's discharge medication list was reviewed for discrepancies and discrepancies were resolved. Home Medications albuterol sulfate 90 mcg/actuation aerosol inhaler 1 puff inhalation PRN PRN Shortness Of Breath 02/10/23 budesonide-formoterol HFA 160 mcg-4.5 mcg/actuation aerosol inhaler (Symbicort) 1 puff inhalation BID 02/10/23 dabigatran etexilate 150 mg capsule (Pradaxa) 150 mg PO BID 02/10/23 doxazosin 4 mg tablet 4 mg PO QHS 02/10/23 finasteride 5 mg tablet 5 mg PO DAILY 02/10/23 hydralazine 10 mg tablet 20 mg PO TID 02/10/23 simvastatin 20 mg tablet 20 mg PO QHS 02/10/23 zolpidem 10 mg tablet 10 mg PO QHS PRN PRN Sleep 02/10/23 ferrous sulfate 325 mg (65 mg iron) tablet (FeroSul) 325 mg PO 1200,1700 #60 tabs 02/17/23 furosemide 40 mg tablet 40 mg PO BIDLX #60 tabs 02/17/23 metoprolol tartrate 25 mg tablet 12.5 mg PO BID #15 tabs 02/17/23 pantoprazole 40 mg tablet,delayed release 40 mg PO BID #60 tabs 02/17/23 spironolactone 25 mg tablet 12.5 mg PO DAILY #15 tabs 02/17/23 sucralfate 100 mg/mL oral suspension (Carafate) 10 ml PO Q6H #1,000 mL 02/17/23 The patient was counseled on the following discharge medications and changes in medications for homegoing were reviewed. The Reason for Use, instructions for use, and potential side effects were reviewed for all new medications. The patient's questions regarding all of their medications were answered. The patient was able to verbally demonstrate an understanding of their discharge medications.
--- NOTE | 2023-02-17 16:18 | CASEMGMT ---
Discharge Planning HH referral sent to [facility] via [facility] for jail/PT/OT. Aletha Solis
--- NOTE | 2023-02-17 16:30 | CASEMGMT ---
SEBASTIAN TEIXEIRA back to discuss HHC with patient and family. Patient and family agreeable to HHC and prefer [facility]. SEBASTIAN TEIXEIRA called and made referral. [facility] is not able to accept patient due to staffing. SEBASTIAN TEIXEIRA in to updated patient and family. Family reviewed list and would like [facility]. SEBASTIAN TEIXEIRA updated DC planning assistance. SEBASTIAN TEIXEIRA explained to patient and family that patient could discharge and CM would continue to setup HHC and will call patient when HHC to arranged. Patient and family agreeable. Patient and family had no further questions or concerns at this time.
--- NOTE | 2023-02-18 08:59 | CASEMGMT ---
Discharge Planning Patient was accepted for services by [facility]. RN CM notified. Aletha Solis
== END 2023-02-17 17:03 | disposition home or self-care (01) | DRG 280 ==
LOC: ED 19:35 → PCU 19:50
PROVIDERS: Anesthesiology; Internal Medicine; Internal Medicine Gastroenterology; Nurse Practitioner Adult Health; Admitting Provider Family Medicine; Emergency Provider Student in an Organized Health Care Education/Training Program; PCP Family Medicine; Visit Provider Internal Medicine
PROC: 0DJ08ZZ Inspection of Upper Intestinal Tract, Via Natural or Artificial Opening Endoscopic (ICD-10-PCS; CPT 43235; principal; 2023-02-11 15:55)
DX: I11.0 Hypertensive heart disease with heart failure (principal); I21.A1 Myocardial infarction type 2; I50.33 Acute on chronic diastolic (congestive) heart failure; K25.4 Chronic or unspecified gastric ulcer with hemorrhage; K29.71 Gastritis, unspecified, with bleeding; D62 Acute posthemorrhagic anemia; N17.9 Acute kidney failure, unspecified; D69.6 Thrombocytopenia, unspecified; I27.20 Pulmonary hypertension, unspecified; D63.1 Anemia in chronic kidney disease; I48.0 Paroxysmal atrial fibrillation; I13.0 Hypertensive heart and chronic kidney disease with heart failure and stage 1 through stage 4 chronic kidney disease, or unspecified chronic kidney disease; J44.9 Chronic obstructive pulmonary disease, unspecified; I50.32 Chronic diastolic (congestive) heart failure; K70.30 Alcoholic cirrhosis of liver without ascites; N18.32 Chronic kidney disease, stage 3b; E78.5 Hyperlipidemia, unspecified; K80.20 Calculus of gallbladder without cholecystitis without obstruction; K21.9 Gastro-esophageal reflux disease without esophagitis; K29.70 Gastritis, unspecified, without bleeding; K44.9 Diaphragmatic hernia without obstruction or gangrene; K22.70 Barrett's esophagus without dysplasia; K31.89 Other diseases of stomach and duodenum; I08.1 Rheumatic disorders of both mitral and tricuspid valves; E87.6 Hypokalemia; S70.321A Blister (nonthermal), right thigh, initial encounter; K76.89 Other specified diseases of liver; Z82.5 Family history of asthma and other chronic lower respiratory diseases; R73.9 Hyperglycemia, unspecified; Z82.3 Family history of stroke; R80.9 Proteinuria, unspecified; Z79.51 Long term (current) use of inhaled steroids; K25.9 Gastric ulcer, unspecified as acute or chronic, without hemorrhage or perforation; N28.1 Cyst of kidney, acquired; B95.8 Unspecified staphylococcus as the cause of diseases classified elsewhere; N40.0 Benign prostatic hyperplasia without lower urinary tract symptoms
CPT/HCPCS: 36415; 71045; 76705; 76770; 80048; 80053; 80061; 80069; 80076; 81001; 82274; 82570; 83036; 83735; 83880; 84100; 84156; 84300; 84443; 84484; 85014; 85018; 85025; 85610; 86850; 86900; 86901; 86920; 87086; 87088; 87640; 88305; 88342; 93005; 93306; 93970; 94640; 94668; 97110; 97116; 97162; 97166; 97530; 97535; 99285; J7030; J7050; P9016; A4216; J1940; J2405

== ENCOUNTER → 2023-03-03 | Outpatient (CLI) | payer MEDICARE, SELFPAY ==
[2023-03-03 12:47] LABS: Absolute Lymphocyte Count 0.87 X10^3/uL (0.83-4.51); Absolute Neutrophil Count 3.1 X10^3/uL (2.0-7.7); Basophil# 0.02 X10^3/uL; Basophil% 0.4 % (0-1); Eosinophil# 0.12 X10^3/uL; Eosinophils% 2.7 % (0-5); Lymphocyte # 0.87 X10^3/ul (0.83-4.51); Lymphocyte % 19.4 % (19-41); Mean Corp Hgb Conc 29.6 g/dL (32-36); Mean Corpuscular Hgb 26.1 pg (27.0-32.0); Mean Corpuscular Volume 87.9 fL (80-94); Mean Platelet Vol. 10.9 fl (6.2-12.0); Monocyte# 0.39 X10^3/uL; Monocyte% 8.7 % (0-10); NRBC Flagged by Analyzer 0 % (0-5); Neutrophil # 3.06 X10^3/uL (2.7-7.7); Neutrophil % 68.1 % (47-70); Platelet Count 161 K/mm3 (150-450); RBC Distribution Width CV 15.8 % (11.6-14.6); RBC Distribution Width SD 50.1 fl (35.1-43.9); Red Blood Count 3.07 M/mm3 (4.6-6.2); White Blood Count 4.5 K/mm3 (4.4-11.0)
[2023-03-03 12:52] LABS: International Normalized Ratio 1.2; Prothrombin Time (Protime)PT. 15.2 SECONDS (11.7-14.9)
[2023-03-03 13:16] LABS: ALB/GLOB Ratio 0.6 RATIO (0.9-2.4); AST(SGOT) 31 U/L (15-37); Alanine Aminotransfer ALT/SGPT 27 U/L (16-61); Albumin, Serum 2.8 g/dL (3.2-5.0); Alkaline Phosphatase 173 U/L (45-117); Anion Gap 5 (5-15); BUN 36 mg/dL (7-18); BUN/Creat Ratio 20.2 RATIO (10-20); Calcium,Total 8.3 mg/dL (8.5-10.1); Chloride 107 mmol/L (98-107); Creatinine, Serum 1.78 mg/dL (0.70-1.30); EST Glomerular Filtration Rate 39 mL/min (>60); Est Glom Filt Rate - Afr Amer 47 mL/min (>60); Ferritin 107 ng/mL (26-388); Globulin 4.7 g/dL (2.2-4.2); Glucose 86 mg/dL (74-106); Iron 23 ug/dL (65-175); Iron Binding Capacity,Total 301 ug/dL (250-450); PERCENT IRON SATURATION 7.6 % (15.0-55.0); Potassium 4.5 mmol/L (3.5-5.1); Protein, Total 7.5 g/dL (6.4-8.2); Sodium Level 138 mmol/L (136-145)
== END | disposition home or self-care (01) ==
LOC: LAB 12:16
PROVIDERS: PCP Family Medicine; Referring Provider Nurse Practitioner Adult Health; Visit Provider Nurse Practitioner Adult Health
DX: D64.9 Anemia, unspecified (principal); K74.60 Unspecified cirrhosis of liver
CPT/HCPCS: 36415; 80053; 82140; 82728; 83540; 83550; 85025; 85610